=== PATIENT | female | born 1985 | race Caucasian/White ===

== ENCOUNTER 2017-10-02 05:04 | Emergency (ER) | payer MEDICAID, SELFPAY ==
[2017-10-02 05:06] VITALS: BP 112/70; PULSE 82; RESP 18; TEMP 37.1; O2SAT 98
--- NOTE | 2017-10-02 05:18 | ED.GENADUL_ITS ---
Disposition Clinical Impression: Left flank pain Disposition: HOME Condition: Good Instructions: Flank Pain (ED) Additional Instructions: Please take medications as directed. Please drink 8-10 cups of water per day. If you notice any worsening of your symptoms, or any new symptoms such as vomiting, diarrhea, fever, chills, shortness of breath, chest pain, numbness, weakness, or fainting , please return immediately to the emergency department for reevaluation. Please follow up with your primary care provider as soon as possible for reassessment and reevaluation. As always, it was a pleasure participating in your medical care today. Prescriptions: Acetaminophen [Tylenol Extra Strength] 1,000 mg PO Q6H 5 Days #60 tab Dicyclomine [Bentyl] 10 mg PO BID #10 cap Ibuprofen [Motrin Ib] 600 mg PO Q6H 5 Days #60 tablet Medical Decision Making - Medical Decision Making This is a 31-year-old female who presents for evaluation of left- sided flank and left lower quadrant abdominal pain. It occurred suddenly and woke her up out of sleep. She describes the pain as severe, stabbing and aching. Radiation between the left flank and left lower quadrant of her abdomen is present. She denies any urinary symptoms. Differential at this time includes urolithiasis, diverticulitis. Will evaluate for atypical cardiac etiology. We will control her pain, hydrate, and evaluate with CT imaging. 7:16 AM Patient's laboratory workup has returned benign. Urinalysis shows no signs of hematuria or infection for that matter. CT scan was read as negative with no acute process per virtual radiology. I did contact virtual radiology and spoke personally with Dr. Doe, reviewed the findings and she confirms that there is no evidence of urolithiasis, appendicitis, or acute colonic pathology. There is a phlebolith present, however this is present on prior imaging study. Patient's pain is notably improved after medications. With a negative workup, no abnormalities, improvement of her pain it feels that she can be safely discharged home with close follow-up with her primary care provider. At a long discussion regarding red flags which returned the patient understands. I have extensively reviewed the treatment plan and discharge instructions with the patient. I have addressed all patient concerns at this time. The patient was made aware of what symptoms to monitor for that would warrant a return to the emergency department. Discussed the plan with the patient, they demonstrate verbal understanding and agreement with our assessment and plan at this time. History of Present Illness - General Chief complaint: Abd Prob Stated complaint: FABIÁN Time Seen by Provider: 10/02/17 05:11 - History of Present Illness Initial comments: This is a 31-year-old female with no past medical history, and past surgical history of a tubal ligation to dc and left-sided knee surgery, who presents today for evaluation of sudden onset left lower flank pain. Patient states that the pain is severe in nature, sharp, and aching sensation. Pain is constant but comes and goes in severity. Pain is worsened with palpation of the back, flank, and abdomen, relieved by nothing. It woke her up out of sleep early this morning roughly 1 hour prior to arrival. She has never had pain like this before. Pain is located in her left flank towards the left abdomen. No genitourinary radiation. She denies any chest pain, shortness of breath, arm pain, neck pain, vomiting, diarrhea, hematuria, numbness tingling or weakness. Patient has never had symptoms like this in the past. She denies any history of kidney stones or family history of kidney stones. Aside for the tubal ligation to dc the patient denies any previous abdominal surgeries. Patient has no other complaints at this time. Patient denies any IV or illicit drug use. - Related Data Fluticasone Propionate [Flovent 110MCG] 110 mcg IH BID inhaler 12/21/13 Acetaminophen [Tylenol] 1,000 mg PO Q8H PRN PRN 08/20/15 Ibuprofen [Ibuprofen Ib] 600 mg PO PRN PRN 08/01/16 Fluticasone Propionate [Flonase] 2 sprays NS DAILY 14 Days #1 btl 08/28/17 Acetaminophen [Tylenol Extra Strength] 1,000 mg PO Q6H 5 Days #60 tab 10/02/17 Dicyclomine [Bentyl] 10 mg PO BID #10 cap 10/02/17 Ibuprofen [Motrin Ib] 600 mg PO Q6H 5 Days #60 tablet 10/02/17 Allergies Allergy/AdvReac Type Severity Reaction Status Date / Time Sulfa (Sulfonamide Allergy Severe Hives Unverified 10/02/17 05:10 Antibiotics) Review of Systems Other: 10 point review of systems was performed, pertinent positives and negatives are noted in the history of present illness. Past Medical History - Past Medical History Medical history: asthma, GERD Surgical history: bilateral tubal ligation, other (knee surgery) - Social History Alcohol use: occasionally Drug use: none General Exam - Other Other exam information: 1.Const: Well-nourished, Well-developed, appearing stated age 2.Eyes: PERRL, no conjunctival injection, and symmetrical lids. 3.ENT: Atraumatic external nose and ears. Moist MM. Neck: Symmetric, trachea midline, No thyromegaly. 4.CVS: +S1/S2, No murmurs or gallops. Peripheral pulses 2+ and equal in all extremities. Brisk capillary refill in all extremities. 5.RESP: Unlabored respiratory effort. Clear to auscultation bilaterally. No wheezes rales or rhonchi 6.GI: Abdominal exam demonstrates reproducible tenderness on percussion of the left flank, with CVA tenderness. Reproducible tenderness on palpation of the left lower quadrant and in the suprapubic region. No right lower quadrant and right upper quadrant pain. No guarding or rebound. 7.MSK: Normocephalic/Atraumatic, Extremities w/o deformity or ttp No cyanosis or clubbing, Normal movement of all extremities 8.Skin: Warm, Dry. No rashes or lesions. 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 Sensation grossly intact, no focal neurologic deficits. 10.Psych: (AAO) x3. Appropriate mood and affect Course Vital Signs - 24 hr 10/02/17 05:06 Temperature 37.1 C Pulse 82 Respiratory 18 Rate Blood Pressure 112/70 Pulse Oximetry 98
[2017-10-02] MEDS: MORPHine 10 MG/ML VIAL 4 MG IVP ×2 (05:32→07:32)
[2017-10-02] MEDS: Normal Saline 1,000 ML 1000 ML IV (05:32)
[2017-10-02] MEDS: Acetaminophen 500 MG TAB 1000 MG PO (05:33)
[2017-10-02] MEDS: Ketorolac 30 MG/ML VIAL IM (05:33)
[2017-10-02 05:35] LABS: Abs Immature Grans 0.01 k/cumm (0.0-0.09); Absolute Basophil Count 0.03 k/cumm (0.0-0.2); Absolute Eosinophil Count 0.59 k/cumm (0.0-0.7); Absolute Lymphocyte Count 3.99 k/cumm (1.2-3.4); Absolute Monocyte Count 0.62 k/cumm (0.11-0.7); Basophils % 0.3; Eosinophils % 5.4; HCT 44.8 % (36.0-46.0); HGB 14.7 g/dL (12.0-15.5); Immature Grans % 0.1; Lymphocytes % 36.7; Mean Corp. HGB Concentration 32.8 g/dL (32.0-36.0); Mean Corpuscular Hemoglobin 29.9 pg (27.0-33.0); Mean Corpuscular Volume 91.1 fL (80-95); Mean Platelet Volume 9.3 fL (8.0-11.0); Monocytes % 5.7; Neutrophils % 51.8; Platelet Count 326 x1000/uL (130-400); RBC 4.92 m/cumm (4.00-5.20); RBC Distribution Width 13.6 % (11.7-14.6); White Blood Cell Count 10.86 k/cumm (4.4-10.8)
[2017-10-02 05:43] LABS: Lipase 134 U/L (73-393)
[2017-10-02 05:49] LABS: Absolute Neutrophil Count 5.63 k/cumm (1.2-6.7)
[2017-10-02 05:51] LABS: ALT 26 U/L (12-78); AST 15 U/L (15-37); Albumin 3.7 g/dL (3.4-5.0); Alkaline Phosphatase 89 U/L (46-116); Anion Gap 8.4 mmol/L (3-11); BUN 14 mg/dL (7-18); Bilirubin, Total 0.1 mg/dL (0.2-1.0); CO2 27.6 mmol/L (21.0-32.0); CREATININE 0.79 mg/dL (0.55-1.02); Calcium 8.5 mg/dL (8.5-10.1); Chloride 103 mmol/L (98-107); Glucose 86 mg/dL (70-100); Potassium 3.9 mmol/L (3.5-5.1); Sodium 139 mmol/L (136-145); Total Protein 7.5 g/dL (6.4-8.2)
[2017-10-02 05:54] LABS: Troponin I < 0.02 ng/mL (0.00-0.06)
--- NOTE | 2017-10-02 05:55 | DI.RPTCT_ITS ---
SYMPTOM/DIAGNOSIS: SUDDEN ONSET LEFT LOWER FLANK PAIN, RULE OUT STONE ABDOMINAL AND PELVIC CT: 10/02 CT examination of the abdomen and pelvis was performed without contrast administration. Images obtained through the lung bases are unremarkable. Liver is unremarkable in appearance. Small calcified splenic focus noted which is nonspecific. Pancreas is unremarkable by CT criteria as area gallbladder and bile ducts. Abdominal aorta is of normal diameter. No significant abdominal wall hernia seen. No abdominal adenopathy seen. Adrenals and kidneys are normal in appearance. No urinary tract calcification or obstruction. Urinary bladder is essentially empty. Appendix is normal. No evidence of diverticulitis or bowel obstruction. 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 CONCLUSION: No evidence of acute intra-abdominal process. No evidence of urinary tract obstruction or calcification.
[2017-10-02 06:51] LABS: Bilirubin Negative (Negative); Blood Negative (Negative); Clarity Clear; Glucose Negative (Negative); Ketones Negative (Negative); Leukocyte Esterase Negative (Negative); Nitrite Negative (Negative); Specific Gravity 1.025 (1.005-1.025)
[2017-10-02 07:03] LABS: Bacteria Few HPF (Negative); C & S Indicated? C&S Done As Ordered; Casts Negative LPF (Negative); Crystals Few Amorphous HPF (Negative); Epithelial Cells Many HPF (Negative); Mucus Moderate (Negative); RBC Negative (0-2); WBC Negative HPF (0-5)
--- NOTE | 2017-10-02 07:03 | DI.VRAD_ITS ---
EXAM: CT Abdomen and Pelvis Without Intravenous Contrast EXAM DATE/TIME: Exam ordered 10/02/2017 5:16 AM CLINICAL HISTORY: 31 years old, female; Pain; Abdominal pain and other: L flank; Localized; Left lower quadrant (llq); Prior surgery; Surgery date: 6+ months; Surgery type: Tubal ligation; Patient HX: Woken up with severe pain in llq radiating into back TECHNIQUE: Axial computed tomography images of the abdomen and pelvis without intravenous contrast. All CT scans at this facility use at least one of these dose optimization techniques: automated exposure control; mA and/or kV adjustment per patient size (includes targeted exams where dose is matched to clinical indication); or iterative reconstruction. Coronal and sagittal reformatted images were created and reviewed. COMPARISON: CT - ABD PELVIS WITH CONTRAST 10/21/2015 1:44 PM FINDINGS: Lung bases: Unremarkable. No mass. No consolidation. ABDOMEN: Liver: Unremarkable. Gallbladder and bile ducts: Unremarkable. Pancreas: Unremarkable. Spleen: Unremarkable. Adrenals: Unremarkable. Kidneys and ureters: Unremarkable. No stones or hydronephrosis seen. There is a left pelvic phlebolith unchanged from the prior study. Stomach and bowel: Unremarkable. PELVIS: Appendix: Normal appendix. Bladder: Unremarkable. Reproductive: Unremarkable as visualized. ABDOMEN and PELVIS: Intraperitoneal space: No free air. No significant fluid collection. Bones/joints: No acute findings. Soft tissues: Unremarkable. Vasculature: Mild atherosclerotic disease in the pelvis. No aneurysm. Lymph nodes: No pathologic size nodes. IMPRESSION: No acute findings. Dictated and Authenticated by: Kristen Doe MD. Ordering:KEO ALMODOVAR MD
[2017-10-02 07:30] VITALS: BP 102/42; PULSE 73; RESP 17; TEMP 37; O2SAT 98
[2017-10-02] MEDS: Dicyclomine 10 MG CAP PO (07:31)
== END 2017-10-02 07:39 | disposition home or self-care (01) ==
PROVIDERS: Emergency Provider Student in an Organized Health Care Education/Training Program; PCP Family Medicine
DX: R10.32 Left lower quadrant pain (principal); R10.12 Left upper quadrant pain
CPT/HCPCS: 36415; 80053; 83690; 93005; 96361; 96372; 96374; 96376; 99285; 74176; 81003; 81015; 84484; 85025; 87086; 93010; J1885; J2270

== ENCOUNTER 2018-01-26 09:43 | Outpatient (REF) | payer MEDICAID, SELFPAY ==
[2018-01-26 12:26] LABS: ALT 17 U/L (12-78); AST 9 U/L (15-37); Albumin 3.8 g/dL (3.4-5.0); Alkaline Phosphatase 76 U/L (46-116); Anion Gap 8.9 mmol/L (3-11); BUN 13 mg/dL (7-18); Bilirubin, Total 0.3 mg/dL (0.2-1.0); CO2 28.1 mmol/L (21.0-32.0); CREATININE 0.71 mg/dL (0.55-1.02); Calcium 8.8 mg/dL (8.5-10.1); Chloride 104 mmol/L (98-107); Cholesterol 188 mg/dL (50-200); Glucose 94 mg/dL (70-100); HDL Cholesterol 34 mg/dL (40-60); LDL CHOLESTEROL 126 mg/dL (<100); Sodium 141 mmol/L (136-145); Total Protein 6.8 g/dL (6.4-8.2); Triglyceride 177 mg/dL (30-150)
== END 2018-01-26 10:03 ==
LOC: NCHCN 09:43
PROVIDERS: PCP Family Medicine; Visit Provider Nurse Practitioner Family
DX: Z00.00 Encounter for general adult medical examination without abnormal findings (principal); Z13.228 Encounter for screening for other metabolic disorders; Z13.220 Encounter for screening for lipoid disorders
CPT/HCPCS: 80053; 80061; 83721

== ENCOUNTER 2020-02-22 15:34 | Emergency (ER) | payer MEDICAID, SELFPAY ==
--- NOTE | 2020-02-22 | DI.CT_ITS ---
EXAM: CT RENAL COLIC WO CLINICAL HISTORY: Rt flank pain. TECHNIQUE: Imaging Protocol: Axial computed tomography images with coronal and sagittal reformatted images were created and reviewed CONTRAST MATERIAL: Intravenous: none Oral: None COMPARISON: CT ABD PELVIS WO CONTRAST from 10/02/2017 FINDINGS: VISUALIZED LUNG BASES: No nodules nor pleural effusions evident. ABDOMEN: There is no ascites. LIVER: There are no obvious focal hepatic lesions evident of this noninfused study. GALLBLADDER/BILIARY: No obvious gallbladder pathology. CBD is not dilated. PANCREAS: No evidence of pancreatic mass nor dilatation of the pancreatic duct. SPLEEN: Spleen is not enlarged. No obvious intrasplenic lesions. ADRENALS: There are no significant adrenal masses. KIDNEYS:No cysts evident. No solid renal masses. No calculi nor hydronephrosis. . ABDOMINAL AORTA: Abdominal aorta is not enlarged and there is no [id number] adenopat hy. ABDOMINAL WALL/GI: No evidence of significant anterior abdominal wall hernia. No bowel obstruction. PELVIS: LYMPH NODES: There is no intrapelvic nor inguinal adenopathy. GI: No evidence of appendicitis.No evidence of sigmoid diverticulitis. URINARY BLADDER: No calculi nor obvious masses evident REPRODUCTIVE: Uterus and adnexal regions appear age-appropriate. There is no free fluid in the cul-d e-sac. OSSEOUS: No significant osseous lesions. IMPRESSION: 1. No evidence of nephrolithiasis and no calculi within the nondilated ureters nor within the urinary bladder.. No hydronephrosis nor perinephric streaking. 2. No significant acute findings in the abdomen pelvis on this noninfused study. 3. No osseous lesions evident. RADIATION DOSE DELIVERED: 1,324.31mGy.cm Total DLP DATA REPOSITORY: All CT scans at this facility are submitted to the National Radiology Data Registry (NRDR) Dose Index Registry (DIR) with the [employer] (ACR). RADIATION OPTIMIZATION: All CT scans at this facility use at least one of these dose optimization te chniques: automated exposure control; mA and/or kV adjustment per patient size (includes targeted exa ms where dose is matched to clinical indication); or iterative reconstruction.
[2020-02-22 15:37] VITALS: BP 161/103; PULSE 109; RESP 16; TEMP 36.7; O2SAT 99
[2020-02-22 15:51] LABS: Bilirubin Negative (Negative); Blood Trace-intact (Negative); Clarity Clear (Clear); Glucose Negative (Negative); Ketones Negative (Negative); Leukocyte Esterase Negative (Negative); Nitrite Negative (Negative); Specific Gravity 1.025 (1.005-1.025); Urobilinogen 0.2 EU/dL (Up TO 0.2); pH 7.5 (5-8)
--- NOTE | 2020-02-22 16:00 | RT.EKG_ITS ---
APPROVED REPORT Exam: Resting ECG Patient Location: E HR:93 bpm ECG Measurements Heart Rate 93 AXIS [place] 164 P 57 QRSd 79 QRS 37 QT 340 T 29 QTc 424 Conclusion Sinus rhythm...normal P axis, V-rate 60- 99
[2020-02-22 16:07] LABS: Bacteria Few HPF (Negative); C & S Indicated? No; Casts Negative LPF (Negative); Crystals Negative HPF (Negative); Epithelial Cells Many HPF (Negative); Mucus Negative (Negative); RBC 0-2 HPF (0-2); WBC 0-2 HPF (0-5)
--- NOTE | 2020-02-22 16:13 | ED.GENADUL_ITS ---
Discharge Plan Disposition Patient Disposition: HOME Condition: Stable Discharge Details Clinical Impression: Acute right flank pain Primary Care Provider: Abdoulaye Pratt ED Provider: Riana Ferrari Home Meds and New Rx's Prescriptions: Continued Flovent HFA 12 GM HFA aerosol inhaler 110 mcg Inhalation BID RF: 0 acetaminophen [Mapap Extra Strength] 500 MG tablet 1,000 mg PO Q8H PRN PRNRF: 0 ibuprofen [Ibuprofen IB] 200 MG tablet 600 mg PO PRN PRNRF: 0 acetaminophen [Mapap Extra Strength] 500 MG tablet 1,000 mg PO Q6H 5 Days Qty: 60 RF: 0 Discharge Instructions Instructions: Flank Pain (ED) Additional Instructions: Please return to the emergency department with any new or worsening pain, development of fever, inability to maintain appropriate oral intake. Pain continues but has no significant worsening but has not completely resolved please follow-up with primary care provider in the next week. I recommend taking 600 mg of ibuprofen in combination with 1 g of Tylenol every 6 hours as needed for pain. Do not exceed this dose as this is your maximum dose in 24 hours. Referrals: Abdoulaye Pratt [Primary Care Provider] - Medical Decision Making Tiera is a 34-year-old female who presents with right flank pain that began yesterday morning and has been worsening throughout today. She reports pain with movement or deep breathing. She has never had anything like this before. She initially treated it with 800 mg of ibuprofen yesterday and seemed to think it help a little but has had no medications today. Has also been treating with heat which she questions giving relieving factors. She has had no pain or swelling in her legs. No recent surgeries. No history of blood clots but does endorse family history of blood clots. Denies prior abdominal surgeries other than tubal ligation. She had no history of UTI, pyelonephritis, or kidney stones. She has been able to eat and drink without difficulty no nausea no pain after then. LMP was roughly 1 month ago. Differential diagnosis includes but not limited to UTI, pyelonephritis, renal colic, also considered biliary involvement although she is without pain in her right upper quadrant anteriorly less likely the case. Also considered possibility of reflux, ACS, PE. Patient did present mildly tachycardic but does appear slightly uncomfortable. She has no pain or swelling in her legs, recent surgeries nor does she endorse other risk factors to suggest PE. I have considered this but think it to be less likely the case. IV will be established and patient was given 1 L of LR as well as 15 mg of Toradol. She declines need for nausea medications at this time. Will obtain CBC, CMP, urinalysis, hCG, EKG as well as CT renal. CBC is unremarkable as is her CMP. Urinalysis shows trace hematuria although on the microscopy is within appropriate range. hCG is negative. EKG is interpreted by my attending with no significant findings. This is also reviewed by myself. I have reevaluated the patient she states she had some improvement of her pain after receiving Toradol. Vital signs are in an appropriate range. At this time we are waiting CT report. Patient declines need for additional pain or nausea medications. CT returns without any acute abnormalities. This is reviewed with the patient. Prior to this report coming in she had actually notified nursing staff that she felt much improved and would like to go home. After I reviewed her results with her she continues to feel improved. I discussed with her that I am unsure what the exact cause of her pain is today. I recommend that she monitor her closely. If she develops any significant new worsening concerning symptoms such as development of fever, worsening pain, inability to maintain appropriate oral intake she will return here for reevaluation. She will also monitor closely for visible hematuria, chest pain or shortness of breath. If symptoms completely resolve she will require no further work-up. If symptoms continue without significant worsening or any concerning symptoms she will follow-up with her primary care provider in 1 week. All of the patient's questions were answered and she felt comfortable with the c are plan discussed. HPI 34-year-old female presents with right flank pain that began yesterday a.m. No previous history of such. Worsening today thus she presents for evaluation. General Mode of arrival: ambulatory . Date/Time Provider Initiated Documentation: 02/22/20 15:35 . Limitations to Documentation: no limitations . Information obtained by: patient . Related Data Home Medications Medication Instructions Recorded Confirmed Flovent HFA 110 mcg INHALATION BID inhaler 12/21/13 02/22/20 acetaminophen [Mapap Extra 1,000 mg PO Q8H PRN PRN 08/20/15 02/22/20 Strength] ibuprofen [Ibuprofen IB] 600 mg PO PRN PRN 08/01/16 02/22/20 acetaminophen [Mapap Extra 1,000 mg PO Q6H 5 Days #60 tab 10/02/17 02/22/20 Strength] Previous Rx's Medication Instructions Recorded acetaminophen [Mapap Extra 1,000 mg PO Q6H 5 Days #60 tab 10/02/17 Strength] Allergies Allergy/AdvReac Type Severity Reaction Status Date / Time Sulfa (Sulfonamide Allergy Severe Hives Unverified 02/22/20 15:42 Antibiotics) General Stated Complaint: Abd Prob YUN: 3 Review of Systems All systems reviewed & are unremarkable except as noted in HPI and below PFSH Social History Smoking/Tobacco Use Status: Current every day Tobacco Type: cigarettes Smoking risk assessment performed?: Yes Alcohol Intake: current Alcohol Intake frequency: holidays/special occasions only Drug use: Never Substance use type: does not use Do you feel safe at home: Yes Do you feel safe in your relationship?: Yes Female Reproductive History Menstrual control method: permanent sterilization Exam Narrative Exam Narrative: CONSTITUTIONAL: Afebrile,well appearing but slightly uncomfortable 34-year-old female, sitting/lying in stretcher, in no acute distress. SKIN: [place], warm and moist. No diaphoresis, pallor, cyanosis, icterus or edema. No lesions, hives, petechiae or ecchymoses. EYES: Pupils equal and round. EOMI voluntarily. Conjunctivae clear w/o erythema or injection. Sclera white. HENT: Head normocephalic, atraumatic. NECK: Trachea midline. Neck supple with full range of motion. No nuchal rigidity. RESPIRATORY: CTAB. No wheezes, rhonchi or rales. Breathing non-labored. CARDIOVASCULAR: Minimally tachycardic upon initial vitals, without murmur, rubs or gallops. S1/ S2 present. GI: BSP. Abdomen soft, nondistended, slight tenderness in the right flank which radiates into the right upper quadrant without positive Worley's. Pain radiates slightly into the right lower quadrant but does not show significant tenderness over McBurney's point. There is minimal to no tenderness over the suprapubic region. Otherwise palpation throughout the rest of the abdomen is without pain.. No palpable masses or HSM. No rebound, guarding or rigidity. : Right CVA tenderness, no left CVA tenderness. MUSCULOSKELETAL: Extremities appear atraumatic with no obvious deformities, cyanosis, clubbing, or edema and with FROM. NEURO: Cranial nerves II-XII grossly intact. No significant motor or sensory deficits appreciated in the upper or lower extremities. No obvious ataxia PSYCH: Appropriate mood and affect. Course Vital Signs Vital signs: Vital Signs Temperature 98.1 F 02/22/20 15:37 Pulse 109 H 02/22/20 15:37 Respiratory Rate 16 02/22/20 15:37 Blood Pressure 161/103 H 02/22/20 15:37 Pulse Oximetry 99 02/22/20 15:37 Temperature 98.1 F 02/22/20 15:37 Temperature Source Skin 02/22/20 15:37 Pulse 109 H 02/22/20 15:37 Respiratory Rate 16 02/22/20 15:37 Respiratory Effort Non-Labored 02/22/20 15:41 Blood Pressure 161/103 H 02/22/20 15:37 Blood Pressure Position Sitting 02/22/20 15:37 Pulse Oximetry 99 02/22/20 15:37 Oxygen Delivery Method Room Air 02/22/20 15:37 Oxygen Flow Rate 0 02/22/20 15:37 Pain Level 8 02/22/20 15:41 Lab/Test Results Lab/Test Results: Laboratory Tests Range/Units 02/22/20 15:44 Urine Color (Yellow) Yellow Urine Clarity (Clear) Clear Urine pH (5-8) 7.5 Ur Specific [place] (1.005-1.025) 1.025 Urine Protein (Negative) mg/dL Negative Urine Ketones (Negative) mg/dL Negative Urine Blood (Negative) Trace-intact H Urine Nitrite (Negative) Negative Urine Bilirubin (Negative) Negative Urine Urobilinogen (Up TO 0.2) EU/dL 0.2 Ur Leukocyte Esterase (Negative) Negative Urine RBC (0-2) HPF 0-2 Urine WBC (0-5) HPF 0-2 Ur Epithelial Cells (Negative) HPF Many Urine Crystals (Negative) HPF Negative Urine Bacteria (Negative) HPF Few Urine Casts (Negative) LPF Negative Urine Mucus (Negative) Negative Ur Culture Indicated? No Urine Glucose (Negative) mg/dL Negative POC- Test(urine) Negative
[2020-02-22] MEDS: Ketorolac 30 MG/ML VIAL 15 MG IV (16:31)
[2020-02-22] MEDS: Lactated Ringers 1,000 ML 1000 ML IV (16:32)
[2020-02-22 16:43] LABS: Abs Immature Grans 0.03 10^3/uL (0.0-0.06); Absolute Basophil Count 0.01 10^3/uL (0.0-0.2); Absolute Eosinophil Count 0.13 10^3/uL (0.0-0.7); Absolute Lymphocyte Count 2.12 10^3/uL (1.2-3.4); Absolute Neutrophil Count 6.53 10^3/uL (1.2-6.7); Basophils % 0.1; Eosinophils % 1.4; HCT 38.1 % (36.0-46.0); Immature Grans % 0.3; Lymphocytes % 22.3; MCH 31.1 pg (27.0-33.0); MCHC 34.1 % (32.0-36.0); MCV 91.1 fL (80-95); MPV 9.6 fL (8.0-11.0); Monocytes % 7.4; Neutrophils % 68.5; Nucleated RBC 0 %; Platelet Count 232 10^3/uL (130-400); RBC 4.18 10^6/uL (3.93-5.22); RDW 12.6 % (11.7-14.6); RDW-SD 41.4 fL; WBC 9.52 10^3/uL (4.4-10.8)
[2020-02-22 16:53] LABS: ALT 39 U/L (14-59); AST 21 U/L (15-37); Albumin 3.6 g/dL (3.4-5.0); Alkaline Phosphatase 100 U/L (46-116); BUN 12 mg/dL (7-18); Bilirubin, Total 0.2 mg/dL (0.2-1.0); CREATININE 0.67 mg/dL (0.55-1.02); Calcium 8.6 mg/dL (8.5-10.1); Chloride 102 mmol/L (98-107); Glucose 94 mg/dL (74-106); Potassium 3.7 mmol/L (3.5-5.1); Sodium 138 mmol/L (136-145); Total Protein 7.2 g/dL (6.4-8.2)
[2020-02-22 18:17] VITALS: BP 143/86
--- NOTE | 2020-02-22 18:31 | DI.VRAD_ITS ---
PROCEDURE INFORMATION: Exam: CT Abdomen And Pelvis Without Contrast Exam date and time: 02/22/2020 16:10 Age: 34 years old Clinical indication: Other: RT flank pain; Patient HX: Rlq pain TECHNIQUE: Imaging protocol: Computed tomography of the abdomen and pelvis without contrast. COMPARISON: CT ABD PELVIS WO CONTRAST 10/02/2017 05:42 FINDINGS: Lungs: Minimal dependent subsegmental atelectasis. Liver: No hepatic masses on noncontrast imaging. Gallbladder and bile ducts: No calcified stones. No ductal dilation. Pancreas: No ductal dilation. No masses. Spleen: No splenomegaly or focal lesions. Adrenal glands: Normal. No mass. Kidneys and ureters: No nephrolithiasis or collecting system obstruction. Stomach and bowel: No obstruction. No mucosal thickening. Appendix: Normal morphology of the appendix. Intraperitoneal space: No free air. No significant fluid collection. Vasculature: No abdominal aortic aneurysm. Lymph nodes: No significantly enlarged lymph nodes. Urinary bladder: Unremarkable as visualized. Reproductive: Unremarkable as visualized. Bones/joints: No acute fracture. Soft tissues: Tiny fat-containing umbilical hernia. IMPRESSION: 1. No acute findings. 2. No appendicitis. No nephrolithiasis or hydronephrosis. Dictated and Authenticated by: Maureen Choudhary MD. Ordering:VICKIE Mayers MD
[2020-02-22 18:41] VITALS: BP 126/87; PULSE 80; RESP 16; TEMP 36.7; O2SAT 98
== END 2020-02-22 18:49 | disposition home or self-care (01) ==
PROVIDERS: Emergency Provider Physician Assistant Medical; PCP Family Medicine
DX: R10.31 Right lower quadrant pain (principal)
CPT/HCPCS: 36415; 80053; 81025; 93005; 96361; 96374; 99285; 74176; 81003; 81015; 85025; 93010; 99284; J1885

== ENCOUNTER 2020-06-30 05:51 | Emergency (ER) | payer MEDICAID, SELFPAY ==
[2020-06-30 05:52] VITALS: BP 147/87; PULSE 97; RESP 20; TEMP 36.5; O2SAT 99
--- NOTE | 2020-06-30 05:57 | W.ED.GENAD ---
Discharge Plan Disposition Patient Disposition: HOME Condition: Good Discharge Details Clinical Impression: Stimulant intoxication, Use of nonprescription opiate drugs Primary Care Provider: Abdoulaye Pratt ED Provider: Lux Frausto Home Meds and New Rx's Prescriptions: Continued Flovent HFA 12 GM HFA aerosol inhaler 110 mcg Inhalation BID RF: 0 ibuprofen [Ibuprofen IB] 200 MG tablet 600 mg PO PRN PRNRF: 0 acetaminophen [Mapap Extra Strength] 500 MG tablet 1,000 mg PO Q6H 5 Days Qty: 60 RF: 0 Discontinued acetaminophen [Mapap Extra Strength] 500 MG tablet 1,000 mg PO Q8H PRN PRNRF: 0 Discharge Instructions Additional Instructions: Avoid street drugs, they are very dangerous. Return to ED if chest pain, shortness of breath, mental status changes. Referrals: Abdoulaye Pratt [Primary Care Provider] - Medical Decision Making Unfortunately, no way to really know what substance she truly ingested as even fentanyl out on the streets can be contaminated with other drugs. I suspect a stimulant such as cocaine or methamphetamine has been used as an adulterant. She is mildly tachycardic and hypertensive but is clearly very anxious. We will send a urine drug screen to see if anything turns up. Will do urine test though patient denies and states she has had her tubes tied. Will treat with oral Ativan and reevaluate. 7:30 - Patient feeling better after the Ativan. Drug screen positive for opiates and amphetamines so symptoms consistent with stimulant ingestion. Discussed with patient. Discussed dangers of street drugs. Ok for discharge home for rest today. Lab Data Lab results reviewed: Yes I reviewed the patient's lab results. HPI General Mode of arrival: ambulatory. Date/Time Provider Initiated Documentation: 06/30/20 05:54. Limitations to Documentation: no limitations. Information obtained by: patient and RN notes reviewed. HPI Narrative: Patient presenting to ED with complaints of anxiety, feeling hot and flushed all over since using what she was told was fentanyl and some film she put in her mouth that her friend had given her. Patient states she does not typically use drugs ever. She has been having trouble with her knee which she has had surgery on before. Decided to try the fentanyl for pain tonight. Patient did get the substance from a friend. However, in reality neither truly knows what they were using. Patient denies having headache, chest pain, shortness of breath, vomiting, neurologic change. She has had some diarrhea. Her biggest issue is just feeling extremely anxious and a burning sensation all over. Related Data Home Medications Medication Instructions Recorded Confirmed Flovent HFA 110 mcg INHALATION BID inhaler 12/21/13 02/22/20 ibuprofen [Ibuprofen IB] 600 mg PO PRN PRN 08/01/16 02/22/20 acetaminophen [Mapap Extra 1,000 mg PO Q6H 5 Days #60 tab 10/02/17 02/22/20 Strength] Previous Rx's Medication Instructions Recorded acetaminophen [Mapap Extra 1,000 mg PO Q6H 5 Days #60 tab 10/02/17 Strength] Allergies Allergy/AdvReac Type Severity Reaction Status Date / Time Sulfa (Sulfonamide Allergy Severe Hives Unverified 02/22/20 15:42 Antibiotics) General YUN: 3 Review of Systems Narrative: As documented in HPI otherwise negative as below. Const: no fever, chills, weakness Resp: no cough, SOB, pleuritic pain CV: no CP, diaphoresis, edema, syncope GI: no abdominal pain, nausea, vomiting Neuro: no headache, numbness, focal weakness, confusion [facility] Medical History Anxiety Asthma Depression GERD (gastroesophageal reflux disease) Surgical History S/P arthroscopic knee surgery S/P tubal ligation Social History Smoking/Tobacco Use Status: Current every day Tobacco Type: cigarettes Smoking risk assessment performed?: Yes Alcohol Intake: current Alcohol Intake frequency: a few times a week Drug use: Never Substance use type: opiates Do you feel safe at home: Yes Do you feel safe in your relationship?: Yes Female Reproductive History Menstrual control method: permanent sterilization Exam Narrative Exam Narrative: Const: Obese female in NAD but clearly anxious. HEENT: NC/AT. Normal facial exam. Eyes: PERRL and EOMI Neck: Supple. Trachea midline. Lungs: Normal respiratory effort. Lungs are clear. Cor: RRR without murmur/gallop. Good radial pulses. Neuro: A+O x 3. Normal speech, mentation, gait. Cranial nerves II - XII grossly intact. No gross motor or sensory deficit. Ext: No C/C/E. Skin: Warm and dry without rash.
[2020-06-30 06:01] VITALS: RESP 20
[2020-06-30] MEDS: LORazepam 1 MG TAB PO (06:24)
[2020-06-30 07:28] LABS: *AMPHETAMINES SCREEN URINE Positive (Negative); *BARBITURATES SCREEN URINE Negative (Negative); *BENZODIAZEPINES SCREEN URINE Negative (Negative); Cannabinoids THC Negative (Negative); Cocaine Screen,Urine Negative (Negative); METHADONE URINE SCREEN Negative (Negative); OPIATES URINE SCREEN Positive (Negative)
[2020-06-30 07:33] LABS: Tricyclic Antidepressants Negative (Negative)
[2020-06-30 07:48] VITALS: BP 144/70; PULSE 85; RESP 18; O2SAT 98
== END 2020-06-30 07:48 | disposition home or self-care (01) ==
PROVIDERS: Emergency Provider Emergency Medicine; PCP Family Medicine
DX: F15.920 Other stimulant use, unspecified with intoxication, uncomplicated (principal)
CPT/HCPCS: 80307; 81025; 99283

== ENCOUNTER 2020-07-28 11:46 | Emergency (ER) | payer MEDICAID, SELFPAY ==
[2020-07-28 11:50] VITALS: BP 144/75; PULSE 78; RESP 18; TEMP 36.4; O2SAT 97
[2020-07-28 11:58] VITALS: RESP 18
--- NOTE | 2020-07-28 12:00 | RT.EKG_ITS ---
APPROVED REPORT Exam: Resting ECG Reason for Exam: Chest pressure Patient Location: E HR:80 bpm ECG Measurements Heart Rate 80 AXIS ME 160 P 33 QRSd 77 QRS 30 QT 381 T 31 QTc 439 Conclusion Sinus rhythm...normal P axis, V-rate 60- 99
--- NOTE | 2020-07-28 12:15 | DI.RAD_ITS ---
Exam(s) XR CHEST 2V PA LATERAL EXAM: XR CHEST 2V PA LATERAL CLINICAL HISTORY: chest pain TECHNIQUE: 2D digital imaging was performed. COMPARISON: No exams were available for comparison FINDINGS: MEDIASTINUM: Normal. HEART: Normal. PULMONARY VASCULATURE: Normal. LUNGS: Clear. PLEURAL SPACE: No pleural effusion or pneumothorax. BONE:Within normal limits for the patient's age. OTHER FINDINGS:Normal. IMPRESSION: No acute pulmonary findings. DATA REPOSITORY: RADIATION DOSE DELIVERED:
[2020-07-28] MEDS: LORazepam 1 MG TAB PO (12:36)
[2020-07-28 13:05] LABS: Abs Immature Grans 0.02 10^3/uL (0.0-0.06); Absolute Basophil Count 0.02 10^3/uL (0.0-0.2); Absolute Eosinophil Count 0.38 10^3/uL (0.0-0.7); Absolute Lymphocyte Count 1.38 10^3/uL (1.2-3.4); Absolute Monocyte Count 0.47 10^3/uL (0.1-0.8); Absolute Neutrophil Count 4.63 10^3/uL (1.2-6.7); Basophils % 0.3; Eosinophils % 5.5; HCT 37.8 % (36.0-46.0); HGB 12.1 g/dL (11.2-15.7); Immature Grans % 0.3; MCH 30.6 pg (27.0-33.0); MCV 95.5 fL (80-95); Monocytes % 6.8; Neutrophils % 67.1; Nucleated RBC 0 %; Platelet Count 235 10^3/uL (130-400); RBC 3.96 10^6/uL (3.93-5.22); RDW 12.8 % (11.7-14.6); RDW-SD 44.6 fL
[2020-07-28 13:22] LABS: ALT 60 U/L (14-59); AST 23 U/L (15-37); Albumin 3.4 g/dL (3.4-5.0); Alkaline Phosphatase 96 U/L (46-116); Anion Gap 9.4 mmol/L (3-11); BUN 18 mg/dL (7-18); Bilirubin, Total 0.2 mg/dL (0.2-1.0); CO2 26.6 mmol/L (21.0-32.0); CREATININE 0.8 mg/dL (0.55-1.02); Calcium 8.5 mg/dL (8.5-10.1); Chloride 106 mmol/L (98-107); Glucose 120 mg/dL (74-106); Potassium 3.9 mmol/L (3.5-5.1); Sodium 142 mmol/L (136-145)
[2020-07-28 13:25] LABS: Troponin I < 0.05 ng/mL (<0.06)
--- NOTE | 2020-07-28 13:48 | ED.GENADUL_ITS ---
Discharge Plan Disposition Patient Disposition: HOME Condition: Stable Discharge Details Clinical Impression: Acute dyspnea Primary Care Provider: Abdoulaye Pratt ED Provider: Laura Fink Home Meds and New Rx's Prescriptions: No Action Flovent HFA 12 GM HFA aerosol inhaler 110 mcg Inhalation BID RF: 0 ibuprofen [Ibuprofen IB] 200 MG tablet 600 mg PO PRN PRNRF: 0 acetaminophen [Mapap Extra Strength] 500 MG tablet 1,000 mg PO Q6H 5 Days Qty: 60 RF: 0 Discharge Instructions Instructions: Dyspnea (ED) Additional Instructions: Please follow-up with your primary care physician next week for reevaluation Please return earlier should you have new or worsening complaints I have placed a message for care management to schedule an appointment with your primary care physician in the next several days Discharge Data Discharge Date/Time-TO BE ENTERED AT DEPARTURE: 07/28/20 14:10 Medical Decision Making pt denies chest pain, reports palpitations feels symptomatically improved after ativan neg troponin and EKG, diagnostic labs reassuring heart score of 1 secondary to BMI care management f/u with pcp for anxiety no SI/HI return precautions discussed and pt expressed understanding PT PERC negative for PE Differential Diagnosis Differential Diagnosis: anxiety, angina, dysrhythmia, PE Medical Records Medical records reviewed: Yes I reviewed the patient's medical records. Lab Data Lab results reviewed: Yes I reviewed the patient's lab results. HPI General Mode of arrival: ambulatory . Date/Time Provider Initiated Documentation: 07/28/20 12:13 . Limitations to Documentation: no limitations . Information obtained by: patient . HPI Narrative: This 34-year-old female presents with report of chest pressure and symptoms of anxiety. She states he began to feel very anxious and felt pressure in her chest. She states she has a history of anxiety and felt similarly. She has not used IV drugs or cocaine for greater than 10 years. She denies chance of . She denies exogenous h ormones. She denies any current shortness of breath and is otherwise feeling improved. Her symptoms started several hours ago. She states she had a similar episode several years ago which resolved on its own. Related Data Home Medications Medication Instructions Recorded Confirmed Flovent HFA 110 mcg INHALATION BID inhaler 12/21/13 07/28/20 ibuprofen [Ibuprofen IB] 600 mg PO PRN PRN 08/01/16 07/28/20 acetaminophen [Mapap Extra 1,000 mg PO Q6H 5 Days #60 tab 10/02/17 07/28/20 Strength] Previous Rx's Medication Instructions Recorded acetaminophen [Mapap Extra 1,000 mg PO Q6H 5 Days #60 tab 10/02/17 Strength] Allergies Allergy/AdvReac Type Severity Reaction Status Date / Time Sulfa (Sulfonamide Allergy Severe Hives Unverified 07/28/20 11:55 Antibiotics) General Stated Complaint: Anxiety YUN: 3 Review of Systems Narrative: Review of systems obtained x7 aside from where indicated in HPI [facility] Medical History Anxiety Asthma Depression GERD (gastroesophageal reflux disease) Surgical History S/P arthroscopic knee surgery S/P tubal ligation Social History Smoking/Tobacco Use Status: Current every day Tobacco Type: cigarettes Smoking risk assessment performed?: Yes Alcohol Intake: current Alcohol Intake frequency: a few times a week Drug use: Never Substance use type: does not use Do you feel safe at home: Yes Do you feel safe in your relationship?: Yes Female Reproductive History Menstrual control method: permanent sterilization Exam Const General: cooperative and no acute distress Orientation: alert and oriented x3 Eyes Pupils: PERRL Chest Chest: normal inspection of the chest Resp Effort & Inspection: normal respiratory effort Auscultation: clear to auscultation bilaterally Cardio Rate: regular rate Rhythm: regular rhythm GI Inspection: normal to inspection Skin General skin exam: no rashes or lesions noted Neuro General: patient alert and patient oriented x3 Extrem Other: no calf tenderness or swelling, n/v intact Course Vital Signs Vital signs: Vital Signs Temperature 36.4 C L 07/28/20 11:50 Pulse 78 07/28/20 11:50 Respiratory Rate 18 07/28/20 11:50 Blood Pressure 144/75 H 07/28/20 11:50 Pulse Oximetry 97 07/28/20 11:50 Temperature 36.4 C L 07/28/20 11:50 Temperature Source Temporal Artery Scan 07/28/20 11:50 Pulse 78 07/28/20 11:50 Respiratory Rate 18 07/28/20 11:58 Respiratory Effort Non-Labored 07/28/20 11:58 Respiratory Depth Normal 07/28/20 11:58 Respiratory Pattern Normal 07/28/20 11:58 Blood Pressure 144/75 H 07/28/20 11:50 Blood Pressure Position Sitting 07/28/20 11:50 Pulse Oximetry 97 07/28/20 11:50 Oxygen Delivery Method Room Air 07/28/20 11:50 Oxygen Flow Rate 0 07/28/20 11:50 Pain Level 9 07/28/20 11:50 Lab/Test Results Lab/Test Results: Laboratory Tests Range/Units 07/28/20 07/28/20 12:54 12:54 WBC (4.4-10.8) 10^3/uL 6.90 RBC (3.93-5.22) 10^6/uL 3.96 Hgb (11.2-15.7) g/dL 12.1 Hct (36.0-46.0) % 37.8 MCV (80-95) fL 95.5 H MCH (27.0-33.0) pg 30.6 MCHC (32.0-36.0) % 32.0 RDW (11.7-14.6) % 12.8 Plt Count (130-400) 10^3/uL 235 MPV (8.0-11.0) fL 9.0 Immature Gran % 0.3 Neutrophils % 67.1 Lymphocytes % 20.0 Monocytes % 6.8 Eosinophils % 5.5 Basophils % 0.3 Nucleated RBC % % 0 Absolute Neutrophils (1.2-6.7) 10^3/uL 4.63 Absolute Lymphocytes (1.2-3.4) 10^3/uL 1.38 Absolute Monocytes (0.1-0.8) 10^3/uL 0.47 Absolute Eosinophils (0.0-0.7) 10^3/uL 0.38 Absolute Basophils (0.0-0.2) 10^3/uL 0.02 Sodium (136-145) mmol/L 142 Potassium (3.5-5.1) mmol/L 3.9 Chloride (98-107) mmol/L 106 Carbon Dioxide (21.0-32.0) mmol/L 26.6 Anion Gap (3-11) mmol/L 9.4 BUN (7-18) mg/dL 18 Creatinine (0.55-1.02) mg/dL 0.8 Estimated GFR/1.73 m2 (mL/min/1.73m2) >= 60.00 Glucose (74-106) mg/dL 120 H Calcium (8.5-10.1) mg/dL 8.5 Magnesium (1.8-2.4) mg/dL 2.0 Total Bilirubin (0.2-1.0) mg/dL 0.2 AST (15-37) U/L 23 ALT (14-59) U/L 60 H Alkaline Phosphatase (46-116) U/L 96 Troponin I (<0.06) ng/mL < 0.05 Total Protein (6.4-8.2) g/dL 7.0 Albumin (3.4-5.0) g/dL 3.4 POC- Test(urine) Negative
[2020-07-28 14:02] VITALS: BP 140/89; PULSE 78; RESP 18; TEMP 36.8; O2SAT 97
--- NOTE | 2020-07-28 22:01 | NUR.NOTE ---
REFERAL SENT TO CM TO FOLLOW UP PCP 07/28/20Nursing Note:
== END 2020-07-28 14:10 | disposition home or self-care (01) ==
PROVIDERS: Emergency Provider Physician Assistant; PCP Family Medicine
DX: R06.09 Other forms of dyspnea (principal)
CPT/HCPCS: 36415; 80053; 81025; 93005; 99284; 71046; 83735; 84484; 85025; 93010; 99283

== ENCOUNTER 2020-08-10 13:09 | Emergency (ER) | payer MEDICAID, SELFPAY ==
--- NOTE | 2020-08-10 13:11 | W.ED.GENAD ---
Discharge Plan Disposition Patient Disposition: HOME Condition: Improving Discharge Details Clinical Impression: Opiate withdrawal Primary Care Provider: Abdoulaye Pratt ED Provider: Nikia Suarez Home Meds and New Rx's Prescriptions: Continued Flovent HFA 12 GM HFA aerosol inhaler 110 mcg Inhalation BID RF: 0 ibuprofen [Ibuprofen IB] 200 MG tablet 600 mg PO PRN PRNRF: 0 acetaminophen [Mapap Extra Strength] 500 MG tablet 1,000 mg PO Q6H 5 Days Qty: 60 RF: 0 Discontinued buprenorphine-naloxone [Suboxone] 8-2 mg Film 1 film BUCCAL DAILY RF: 0 Discharge Instructions Instructions: Opioid Withdrawal (ED) Additional Instructions: You can keep the clonidine patch in place for a total of 1 week and then remove. Take 1 tab of Ativan as needed and directed for additional symptoms of withdrawal. Drink plenty of fluids and get plenty of rest. Call the [facility] in [facility] at [phone] tomorrow to discuss with them if you are interested in starting suboxone treatment for opiate withdrawal. Return immediately to the emergency department if you develop any worsening or new concerning symptoms. Discharge Data Discharge Date/Time-TO BE ENTERED AT DEPARTURE: 08/10/20 17:40 Discharge Physician: Nikia Suarez Medical Decision Making 1330 --34yo F using heroin daily for the past few weeks presents to the ED w/ a feeling of restlessness and bodyaches w/ concern for possible withdrawal symptoms after taking Suboxone at 11 AM this morning. Patient appears restless and uncomfortable. She is afebrie and appears nontoxic. No meningeal signs. EKG notes a rate of 90, sinus, no STEMI. History and presentation does not appear consistent with PE and she is PERC negative. Suspect her symptoms are likely due to abrupt withdrawal from opiate use after taking Suboxone. Suboxone is from a friend's prescription and not her own. Will place an IV, bolus IV fluids, screening labs, cxr, test and give a dose of Ativan and reassess. Serum test negative. She was unable to give a urine sample and had no UTI symptoms and UDS likely would not tire changer. Labs reviewed. Potassium 3.3, remainder of labs unremarkable. CXR negative. 1420 --patient denies any relief. Heart rate 80s. She does still appear restless. Will place a clonidine patch and give a dose of Toradol. 1700 --patient reassessed and she states she feels much better and feels good to go home. We will keep clonidine patch in place for the next week. We will send home with a few tabs of Ativan. life skills coach came to the ED to speak with patient but she was restless and they were unable to discuss with her at bedside. They will follow up with her tomorrow. Patient was given [facility] information to call tomorrow as she is interested in starting Suboxone once she is feeling better. Advised to follow up with the primary care doctor for re-evaluation. Usual and customary return precautions given prior to discharge. Medical Records Medical records reviewed: Yes I reviewed the patient's medical records. Imaging Data Radiologic Study: Radiologist's impression: XR PORTABLE CHEST AP CLINICAL HISTORY: shortness of breath, r/o acute disease. TECHNIQUE: 2D digital imaging was performed. COMPARISON: Chest x-ray 07/28/2020 FINDINGS: Heart size is normal. The mediastinum is not widened. Lungs are clear. No infiltrates nor obvious pleural effusions. IMPRESSION: No acute pulmonary findings on this single AP portable view of the chest. No significant change compared to 07/28/2020 Lab Data Lab results reviewed: Yes I reviewed the patient's lab results. Labs: Laboratory Tests Range/Units 08/10/20 08/10/20 08/10/20 13:40 13:40 13:40 WBC (4.4-10.8) 10^3/uL 6.39 RBC (3.93-5.22) 10^6/uL 4.27 Hgb (11.2-15.7) g/dL 12.9 Hct (36.0-46.0) % 39.5 MCV (80-95) fL 92.5 MCH (27.0-33.0) pg 30.2 MCHC (32.0-36.0) % 32.7 RDW (11.7-14.6) % 12.6 Plt Count (130-400) 10^3/uL 264 MPV (8.0-11.0) fL 9.7 Immature Gran % 0.3 Neutrophils % 64.8 Lymphocytes % 21.0 Monocytes % 8.8 Eosinophils % 4.9 Basophils % 0.2 Nucleated RBC % % 0 Absolute Neutrophils (1.2-6.7) 10^3/uL 4.15 Absolute Lymphocytes (1.2-3.4) 10^3/uL 1.34 Absolute Monocytes (0.1-0.8) 10^3/uL 0.56 Absolute Eosinophils (0.0-0.7) 10^3/uL 0.31 Absolute Basophils (0.0-0.2) 10^3/uL 0.01 Sodium (136-145) mmol/L 139 Potassium (3.5-5.1) mmol/L 3.3 L Chloride (98-107) mmol/L 104 Carbon Dioxide (21.0-32.0) mmol/L 25.1 Anion Gap (3-11) mmol/L 9.9 BUN (7-18) mg/dL 14 Creatinine (0.55-1.02) mg/dL 0.8 Estimated GFR/1.73 m2 (mL/min/1.73m2) >= 60.00 Glucose (74-106) mg/dL 124 H Calcium (8.5-10.1) mg/dL 8.6 Total Bilirubin (0.2-1.0) mg/dL 0.5 AST (15-37) U/L 23 ALT (14-59) U/L 47 Alkaline Phosphatase (46-116) U/L 96 Total Protein (6.4-8.2) g/dL 7.0 Albumin (3.4-5.0) g/dL 3.5 Serum HCG, Qual Negative ECG Data Attestation: I personally reviewed and interpreted this ECG (s) as follows: Interpretation: Rate of 98, sinus, no acute ST elevation or depression. IN 154. QRS 44. QTc 478. HPI General Mode of arrival: ambulatory. Date/Time Provider Initiated Documentation: 08/10/20 13:11. Limitations to Documentation: no limitations. Information obtained by: patient. HPI Narrative: Patient is a 34-year-old female with a history of daily heroin use over the past few weeks, presents with concern for overdose or withdrawal after taking Suboxone this morning. She states she has been snorting heroin daily for the last few weeks with the last used at 7 PM last night. She states this morning she felt that she wanted to stop using and took a dose of her friend Suboxone at 11 AM. She states within 30 minutes she developed restlessness, body aches, and generally not feeling well. She denies any chest pain or shortness of breath at this time. She states she drinks alcohol occasionally, and last use of 1 drink yesterday. She denies any other drug use. Related Data Home Medications Medication Instructions Recorded Confirmed Flovent HFA 110 mcg INHALATION BID inhaler 12/21/13 07/28/20 ibuprofen [Ibuprofen IB] 600 mg PO PRN PRN 08/01/16 07/28/20 acetaminophen [Mapap Extra 1,000 mg PO Q6H 5 Days #60 tab 10/02/17 07/28/20 Strength] Previous Rx's Medication Instructions Recorded acetaminophen [Mapap Extra 1,000 mg PO Q6H 5 Days #60 tab 10/02/17 Strength] Allergies Allergy/AdvReac Type Severity Reaction Status Date / Time Sulfa (Sulfonamide Allergy Severe Hives Unverified 07/28/20 11:55 Antibiotics) General YUN: 3 Review of Systems All systems reviewed & are unremarkable except as noted in HPI and below Constitutional Constitutional: Reports as per HPI, Reports body ache(s), Denies chills, Denies fever(s) and Reports malaise Eyes Eyes: Denies blurry vision ENT Ears, Nose, Mouth, and Throat: Denies dizziness, Denies sore throat and Denies throat swelling Cardiovascular Cardiovascular: Denies chest pain and Denies dyspnea Respiratory Respiratory: Denies cough and Denies dyspnea Gastrointestinal Gastrointestinal: Denies abdominal pain, Denies diarrhea and Denies vomiting Genitourinary Genitourinary: Denies hematuria and Denies dysuria Musculoskeletal Musculoskeletal: Denies back pain and Denies numbness Integumentary/Breasts Skin/Breast: Denies lesions and Denies rash Neurologic Neurologic: Denies dizziness, Denies localized weakness and Denies numbness Allergic/Immunologic Allergic/Immunologic: Denies throat swelling [facility] Medical History Anxiety Asthma Depression GERD (gastroesophageal reflux disease) Surgical History S/P arthroscopic knee surgery S/P tubal ligation Social History Smoking/Tobacco Use Status: Current every day Tobacco Type: cigarettes Smoking risk assessment performed?: Yes Alcohol Intake: current Alcohol Intake frequency: a few times a week Drug use: Rarely Substance use type: does not use Do you feel safe at home: Yes Do you feel safe in your relationship?: Yes Female Reproductive History Menstrual control method: permanent sterilization Exam Const General: cooperative, uncomfortable and no acute distress Orientation: alert, awake and oriented x3 HENMT Head: normal to inspection Face and sinus: normal facial exam Eyes General: appearance normal, both eyes and all related structures Pupils: PERRL EOM: EOM intact bilaterally Neck Neck: normal visual inspection and No submandibular swelling Lymphatic: no lymphadenopathy noted Chest Chest: normal inspection of the chest and no tenderness Resp Effort & Inspection: normal respiratory effort and able to speak in complete sentences Auscultation: clear to auscultation bilaterally Cardio Rate: regular rate Rhythm: regular rhythm GI Inspection: normal to inspection Palpation: soft, not firm, not rigid and nontender Auscultation: normal bowel sounds Skin General skin exam: no rashes or lesions noted Neuro General: patient alert, patient awake and patient oriented x3 Cognition: normal cognition Speech: speech normal Motor: muscle tone normal throughout Sensory Exam: no sensory deficits noted Extrem General: normal to inspection, full ROM, capillary refill normal, no calf tenderness bilaterally and no edema Psych Appearance: grossly normal Mental Status: mental status grossly normal Speech and Movement: speech and movement normal Affect: normal affect
[2020-08-10 13:14] VITALS: BP 157/84; PULSE 84; RESP 16; TEMP 36.9; O2SAT 97
[2020-08-10 13:19] VITALS: BP 157/84; PULSE 85; PULSE 87; RESP 20; O2SAT 97
[2020-08-10 13:20] VITALS: PULSE 86; RESP 24; O2SAT 97
--- NOTE | 2020-08-10 13:30 | RT.EKG_ITS ---
APPROVED REPORT Exam: Resting ECG Reason for Exam: chest pain Patient Location: E HR:90 bpm ECG Measurements Heart Rate 90 AXIS MI 154 P 36 QRSd 80 QRS 44 QT 391 T 31 QTc 478 Conclusion Sinus rhythm...normal P axis, V-rate 60- 99. No STEMI. I have reviewed and interpreted ECG and agree with software generated interpretation.
[2020-08-10 13:55] LABS: Abs Immature Grans 0.02 10^3/uL (0.0-0.06); Absolute Basophil Count 0.01 10^3/uL (0.0-0.2); Absolute Eosinophil Count 0.31 10^3/uL (0.0-0.7); Absolute Lymphocyte Count 1.34 10^3/uL (1.2-3.4); Absolute Monocyte Count 0.56 10^3/uL (0.1-0.8); Absolute Neutrophil Count 4.15 10^3/uL (1.2-6.7); Basophils % 0.2; Eosinophils % 4.9; HCT 39.5 % (36.0-46.0); HGB 12.9 g/dL (11.2-15.7); Immature Grans % 0.3; MCH 30.2 pg (27.0-33.0); MCHC 32.7 % (32.0-36.0); MCV 92.5 fL (80-95); MPV 9.7 fL (8.0-11.0); Monocytes % 8.8; Neutrophils % 64.8; Nucleated RBC 0 %; Platelet Count 264 10^3/uL (130-400); RBC 4.27 10^6/uL (3.93-5.22); RDW 12.6 % (11.7-14.6); WBC 6.39 10^3/uL (4.4-10.8)
[2020-08-10 14:00] VITALS: PULSE 90; RESP 18; O2SAT 96
[2020-08-10 14:09] LABS: ALT 47 U/L (14-59); AST 23 U/L (15-37); Albumin 3.5 g/dL (3.4-5.0); Alkaline Phosphatase 96 U/L (46-116); Anion Gap 9.9 mmol/L (3-11); BUN 14 mg/dL (7-18); Bilirubin, Total 0.5 mg/dL (0.2-1.0); CO2 25.1 mmol/L (21.0-32.0); CREATININE 0.8 mg/dL (0.55-1.02); Calcium 8.6 mg/dL (8.5-10.1); Chloride 104 mmol/L (98-107); Glucose 124 mg/dL (74-106); Potassium 3.3 mmol/L (3.5-5.1); Sodium 139 mmol/L (136-145)
[2020-08-10] MEDS: Normal Saline 1,000 ML 1000 ML IV ×2 (14:12→15:32)
[2020-08-10] MEDS: LORazepam 2 MG/ML VIAL 0.5 MG IVP (14:12)
[2020-08-10 14:15] VITALS: BP 158/88; PULSE 90; RESP 31; O2SAT 98
[2020-08-10 14:24] LABS: HCG Qual (Serum) Negative
--- NOTE | 2020-08-10 14:35 | DI.RAD_ITS ---
Exam(s) XR PORTABLE CHEST AP EXAM: XR PORTABLE CHEST AP CLINICAL HISTORY: shortness of breath, r/o acute disease. TECHNIQUE: 2D digital imaging was performed. COMPARISON: Chest x-ray 07/28/2020 FINDINGS: Heart size is normal. The mediastinum is not widened. Lungs are clear. No infiltrates nor obvious pleural effusions. IMPRESSION: No acute pulmonary findings on this single AP portable view of the chest. No significant change compared to 07/28/2020 DATA REPOSITORY: RADIATION DOSE DELIVERED: All CT scans at this facility use at least one of these dose optimization techniques: automated exposure control; mA and/or kV adjustment per patient size (includes targeted e xams where dose is matched to clinical indication); or iterative reconstruction.
[2020-08-10] MEDS: Potassium Chloride 20 MEQ TABCR PO (14:41)
[2020-08-10] MEDS: Ketorolac 30 MG/ML VIAL IVP (14:41)
[2020-08-10] MEDS: cloNIDine 0.1 MG PATCH TD (14:56)
[2020-08-10] MEDS: LORazepam 2 MG/ML VIAL 1 MG IVP (15:20)
[2020-08-10 17:13] VITALS: TEMP 37.4
--- NOTE | 2020-08-10 17:27 | NUR.NOTE ---
Nursing Note: Referral given to Care Management that the patient is potentially interested in starting suboxone Ghazala Jordan
[2020-08-10] MEDS: LORazepam 0.5 MG TAB 2 MG PO (17:29)
== END 2020-08-10 17:40 | disposition home or self-care (01) ==
PROVIDERS: Emergency Provider Physician Assistant; PCP Family Medicine
DX: F11.13 Opioid abuse with withdrawal (principal); R45.1 Restlessness and agitation; M79.10 Myalgia, unspecified site
CPT/HCPCS: 36415; 80053; 93005; 96361; 96374; 96375; 96376; 99285; 71045; 84703; 85025; 93010; J1885; J2060

== ENCOUNTER 2021-05-29 09:17 | Emergency (ER) | payer MEDICAID, SELFPAY ==
[2021-05-29] VITALS (17 sets, daily range): BP systolic 94–142; BP diastolic 56–101; PULSE 65–99; RESP 16–18; TEMP 36.6; O2SAT 90–96
--- NOTE | 2021-05-29 09:00 | RT.EKG_ITS ---
APPROVED REPORT Exam: Resting ECG Reason for Exam: EMANI CRUZ Patient Location: E HR:82 bpm ECG Measurements Heart Rate 82 AXIS MO 147 P 35 QRSd 80 QRS 25 QT 370 T 28 QTc 431 Conclusion Sinus rhythm...normal P axis, V-rate 60- 99. Sinus. Normal axis. No STEMI. I have reviewed and interpreted ECG and agree with software generated interpretation.
--- NOTE | 2021-05-29 09:45 | ED.GENADUL_ITS ---
Discharge Plan Disposition Patient Disposition: HOME Condition: Stable Discharge Details Clinical Impression: COVID-19 Primary Care Provider: Abdoulaye Pratt ED Provider: Laura Fink Home Meds and New Rx's Prescriptions: New ondansetron HCl 4 mg tablet 4 mg PO DAILY Qty: 10 0RF albuterol sulfate 90 mcg/actuation HFA aerosol inhaler 2 puff inhalation Q6H PRNQty: 6.7 0RF potassium chloride 20 mEq tablet extended release 20 meq PO DAILY Qty: 5 0RF Continued Flovent HFA 12 GM HFA aerosol inhaler 110 mcg Inhalation BID 0RF Label Comments: uses prn ibuprofen [Ibuprofen IB] 200 MG tablet 600 mg PO PRN PRN0RF acetaminophen [Mapap Extra Strength] 500 MG tablet 1,000 mg PO Q6H 5 Days Qty: 60 0RF Discharge Instructions Instructions: Viral Syndrome (ED) Additional Instructions: Take Zofran as needed for nausea and vomiting Ibuprofen and Tylenol for pain control Use albuterol, 2 puffs every 4-6 hours as needed for cough or shortness of breath Check your oxygen levels, if it dips below 90% he should return to the emergency department, you must isolate for 10 days from onset of symptoms Your family should also isolate for 10 days I recommend vaccination Take the PAXLOVID PRESCRIBED Return earlier should you have any worsening complaints Your potassium is slightly low, take the potassium as prescribed Discharge Data Discharge Date/Time-TO BE ENTERED AT DEPARTURE: 05/29/21 12:45 Medical Decision Making Patient COVID-19 positive, given pulse oximeter to check her oxygen status at home Symptoms likely related to COVID-19 is an unvaccinated individual Discussed benefits of vaccine with patient Diagnostic labs reviewed without significant acute abnormality Feeling dramatically improved Instruction discussed regarding isolation Ibuprofen and Tylenol for fever control Albuterol inhaler for home Return precaution discussed and patient expressed understanding, discharged home in stable condition with stable vitals Medical Records Medical records reviewed: Yes I reviewed the patient's medical records. Lab Data Lab results reviewed: Yes I reviewed the patient's lab results. HPI General Date/Time Provider Initiated Documentation: 05/29/21 09:24 . HPI Narrative: 35-year-old female with history of opiate use, depression, anxiety, asthma presents with report of fevers, 100.6 this weekend, pain between her shoulder blades which started Friday of this week. States she also has sore throat. Denies any shortness of breath aside from pleuritic pain which makes it feel like she cannot take a complete inhalation. She states this feels different than her anxiety. She also states this is different from her asthma history. She denies any chest pain or swelling but has had swelling in her arms which started this morning. Has not used IV drugs since August of last year. Denies any headache or stiff neck. Has not had fever since Friday reportedly. Denies chance of . Related Data Home Medications Medication Instructions Recorded Confirmed fluticasone propionate 110 110 mcg INHALATION BID inhaler 12/21/13 05/29/21 mcg/actuation HFA aerosol inhaler (Flovent HFA) ibuprofen 200 mg tablet (Ibuprofen 600 mg PO PRN PRN 08/01/16 05/29/21 IB) acetaminophen 500 mg tablet (Mapap 1,000 mg PO Q6H 5 Days #60 tab 10/02/17 05/29/21 Extra Strength) albuterol sulfate 90 mcg/actuation 2 puff INHALATION Q6H PRN #6.7 g 05/29/21 aerosol inhaler ondansetron HCl 4 mg tablet 4 mg PO DAILY #10 tab 05/29/21 potassium chloride 20 mEq 20 meq PO DAILY #5 tab 05/29/21 tablet,extended release Previous Rx's Medication Instructions Recorded acetaminophen 500 mg tablet (Mapap 1,000 mg PO Q6H 5 Days #60 tab 10/02/17 Extra Strength) albuterol sulfate 90 mcg/actuation 2 puff INHALATION Q6H PRN #6.7 g 05/29/21 aerosol inhaler ondansetron HCl 4 mg tablet 4 mg PO DAILY #10 tab 05/29/21 potassium chloride 20 mEq 20 meq PO DAILY #5 tab 05/29/21 tablet,extended release Allergies Allergy/AdvReac Type Severity Reaction Status Date / Time Sulfa (Sulfonamide Allergy Severe Hives Unverified 05/29/21 09:23 Antibiotics) General Stated Complaint: GenMedical YUN: 3 Review of Systems All systems reviewed & are unremarkable except as noted in HPI and below PFSH All Active Problems (Updated 05/29/21 @ 12:44 by MAIKEL Mendoza) Stimulant intoxication (Acute) Use of nonprescription opiate drugs (Acute) Acute dyspnea (Acute) Opiate withdrawal (Acute) COVID-19 (Acute) GERD (gastroesophageal reflux disease) (Chronic) Depression (Chronic) Asthma (Chronic) Anxiety (Chronic) Medical History Anxiety Asthma Depression GERD (gastroesophageal reflux disease) Surgical History S/P arthroscopic knee surgery S/P tubal ligation Social History Smoking/Tobacco Use Status: Current every day Tobacco Type: cigarettes Smoking risk assessment performed?: Yes Alcohol Intake: current Alcohol Intake frequency: a few times a week Alcohol type: beer and wine Drug use: Rarely Substance use type: does not use Do you feel safe at home: Yes Do you feel safe in your relationship?: Yes Female Reproductive History Menstrual control method: permanent sterilization Exam Const General: cooperative, comfortable and no acute distress HENMT Other: Uvula midline, no exudate Eyes Pupils: PERRL Neck Other: No meningismus Resp Effort & Inspection: normal respiratory effort Auscultation: clear to auscultation bilaterally Cardio Rate: regular rate Rhythm: regular rhythm GI Inspection: normal to inspection Other: Nontender abdominal exam Skin Other: Papules located on his bilateral lower extremity, no petechia or purpura Neuro General: patient alert and patient oriented x3 Extrem Other: Distal pulses intact to all 4 extremities Sensation intact distally Course Vital Signs Vital signs: Vital Signs Temperature 36.6 C 05/29/21 09:18 Pulse 85 05/29/21 09:18 Respiratory Rate 18 05/29/21 09:18 Blood Pressure 142/101 H 05/29/21 09:18 Pulse Oximetry 96 05/29/21 09:18 Temperature 36.6 C 05/29/21 09:18 Temperature Source Temporal Artery Scan 05/29/21 09:18 Pulse 85 05/29/21 09:18 Respiratory Rate 18 05/29/21 09:18 Respiratory Effort Non-Labored 05/29/21 09:22 Blood Pressure 142/101 H 05/29/21 09:18 Blood Pressure Position Sitting 05/29/21 09:18 Pulse Oximetry 96 05/29/21 09:18 Oxygen Delivery Method Room Air 05/29/21 09:18 Oxygen Flow Rate 0 05/29/21 09:18 Pain Level 8 05/29/21 09:18 Lab/Test Results Lab/Test Results: 05/29/21 09:40 Blood Blood Culture - Pending 05/29/21 09:40 Blood Blood Culture - Pending KIRILL Have you Been Recently Intoxicated or Drunk Within the Last 30 days?: No Have you Ever Experienced Previous Episodes of Alcohol Withdrawal?: No Have you ever Experienced Withdrawal Seizures?: No Have you ever Experienced Delirium Tremens(DT)s?: No Have you ever undergone Alcohol Rehabilitation Treatment (i.e, inpt ot outpatient treatment programs)?: No Have you ever Experienced Blackouts?: No Have you ever Combined Alcohol with other Downers within the last 90 days?: No Have you ever Combined Alcohol with any other Substance of Abuse during the last 90 days?: No Positive Blood Alcohol level on Presentation? [PCS.BAL]: No Evidence of Increased Autonomic Activity (i.e. HR>120, tremor, sweating, agitation, nausea)?: No Result: 0
[2021-05-29] MEDS: Ketorolac 15 MG/ML VIAL IVP (10:01)
[2021-05-29 10:02] LABS: Source Nasal/Nares
[2021-05-29 10:08] LABS: Abs Immature Grans 0.01 10^3/uL (0.0-0.06); Absolute Basophil Count 0.01 10^3/uL (0.0-0.2); Absolute Lymphocyte Count 1.19 10^3/uL (1.2-3.4); Absolute Monocyte Count 0.54 10^3/uL (0.1-0.8); Basophils % 0.2; HCT 41.4 % (36.0-46.0); HGB 13.4 g/dL (11.2-15.7); Immature Grans % 0.2; Lactate 1.1 mmol/L (0.6-1.4); Lymphocytes % 28.5; MCH 29.6 pg (27.0-33.0); MCHC 32.4 % (32.0-36.0); MCV 91.4 fL (80-95); MPV 10.2 fL (8.0-11.0); Monocytes % 12.9; Neutrophils % 58.2; Platelet Count 174 10^3/uL (130-400); RBC 4.53 10^6/uL (3.93-5.22); RDW 13.5 % (11.7-14.6); RDW-SD 46.1 fL; WBC 4.17 10^3/uL (4.4-10.8)
[2021-05-29 10:13] LABS: Absolute Neutrophil Count 2.43 10^3/uL (1.2-6.7)
[2021-05-29 10:34] LABS: ALT 48 U/L (14-59); AST 33 U/L (15-37); Albumin 3.6 g/dL (3.4-5.0); Alkaline Phosphatase 93 U/L (46-116); Anion Gap 9.5 mmol/L (3-11); BUN 10 mg/dL (7-18); Bilirubin, Total 0.2 mg/dL (0.2-1.0); CO2 26.5 mmol/L (21.0-32.0); CREATININE 0.9 mg/dL (0.55-1.02); Calcium 8.2 mg/dL (8.5-10.1); Chloride 106 mmol/L (98-107); Glucose 113 mg/dL (74-106); NT-proBNP 51 pg/mL (<300); Potassium 3.3 mmol/L (3.5-5.1); Sodium 142 mmol/L (136-145); Total Protein 7.5 g/dL (6.4-8.2); Troponin I < 50 ng/L (<or=60)
[2021-05-29 10:46] LABS: D-Dimer 1106 ng/mlFEU (<500)
[2021-05-29 10:47] LABS: COVID-19 PCR POSITIVE (Negative)
--- NOTE | 2021-05-29 11:32 | DI.CT_ITS ---
Exam(s) CT CHEST PE CTA EXAM: CT CHEST PE CTA CLINICAL HISTORY: bilateral UE edema with shortness of breath and sc. TECHNIQUE: Imaging Protocol: CT angiography of the chest was performed using pulmonary embolus sharmin col. Multi planar reconstructions were performed. CONTRAST MATERIAL: Intravenous: Omnipaque 350 Contrast volume: 100 cc COMPARISON: CT CT RENAL COLIC WO from 02/22/2020 FINDINGS: CHEST: PULMONARY ARTERIES: There are no intraluminal filling defects to suggest acute pulmonary emboli. LUNGS: There is some diffuse ground-glass haziness throughout both upper lobes possibly related to ai r trapping and somewhat more symmetrical than seen with typical Covid. There are tiny bilateral pleu ral effusions and some mild atelectasis in both lung bases. MEDIASTINUM: Small lymph nodes are seen in both hilar regions as well as a few slightly prominent lym ph nodes in the subcarinal region. There is no axillary adenopathy. No supraclavicular adenopathy. Partially visualized lower half of the thyroid gland appears unremarkable. CARDIAC: Heart size is upper normal. There is no pericardial effusion.Caliber of the thoracic aorta is within normal limits. There is no significant shift of the interventricular septum. PARTIALLY VISUALIZED UPPERMOST ABDOMEN: Partially visualized liver appears slightly large. No obviou s adrenal masses. OSSEOUS: No significant osseous lesions.. IMPRESSION: 1. No evidence of acute pulmonary emboli. No evidence of pulmonary infarction.Tiny bilateral pleural effusions. Mild atelectasis in both lung bases. 2. Diffuse ground-glass haziness both upper lobes, this being symmetrical which is not usually the ca se in typical covid. 3. Probable hepatomegaly. RADIATION DOSE DELIVERED: 452.84mGy.cm Total DLP DATA REPOSITORY: All CT scans at this facility are submitted to the National Radiology Data Registry (NRDR) Dose Index Registry (DIR) with the [employer] (A[employer]). RADIATION OPTIMIZATION: All CT scans at this facility use at least one of these dose optimization te chniques: automated exposure control; mA and/or kV adjustment per patient size (includes targeted exa ms where dose is matched to clinical indication); or iterative reconstruction.
[2021-05-29] MEDS: Omnipaque 350 MG/ML 100 ML BTL IJ (11:36)
== END 2021-05-29 12:45 | disposition home or self-care (01) ==
PROVIDERS: Emergency Provider Physician Assistant; PCP Family Medicine
DX: U07.1 COVID-19 (principal); R07.9 Chest pain, unspecified; R06.02 Shortness of breath; R60.0 Localized edema
CPT/HCPCS: 36415; 71275; 80053; 81025; 87040; 87635; 93005; 96374; 99284; 99285; 83605; 83880; 84484; 85025; 85379; 93010; J1885; J3490

== ENCOUNTER 2022-03-05 13:32 | Emergency (ER) | payer MEDICAID, SELFPAY ==
[2022-03-05 13:35] VITALS: BP 171/111; PULSE 101; RESP 20; TEMP 36.8; O2SAT 97
--- NOTE | 2022-03-05 14:43 | W.ED.GENAD ---
Discharge Plan Disposition Patient Disposition: Home Condition: Stable Discharge Details Clinical Impression: Opiate withdrawal, Use of nonprescription opiate drugs, Infected dental caries Primary Care Provider: Abdoulaye Pratt ED Provider: Juancho Greenwood Home Meds and New Rx's Prescriptions: New amoxicillin-pot clavulanate 875-125 mg tablet 1 tab PO Q12H Qty: 14 0RF Discharge Instructions Instructions: Dental Caries (ED), Narcotic Withdrawal (ED), Narcotic Use Disorder (ED) Additional Instructions: Please continue to check in with the recovery unit operator and keep your appointment for establishment of long-term recovery plan for your narcotic use. If you have any new or significant worsening of symptoms return the emergency department for reassessment. Follow-up with your primary care provider as needed and keep your scheduled appointment for your dental reassessment given dental infection. Referrals: Abdoulaye Pratt [Primary Care Provider] - (As needed for reassessment) Discharge Data Discharge Date/Time-TO BE ENTERED AT DEPARTURE: 03/05/22 15:04 Medical Decision Making Patient presenting to the emergency department for 2 complaints. Patient first stating that she woke up and had some right-sided facial swelling secondary to a broken tooth. Patient also has been taking Suboxone on the street 3 mg daily but has not had any since Friday. Patient reports palpitations, nausea, feeling clammy and having anxiety attacks. She states she was initially addicted to painkillers and then started heroin and then wanted to stop so she started self dosing her self with Suboxone. She states she has been taking 12 mg films and cutting them in quarters. She states she is finally to the point of wanting recovery and has already called and got an appointment with [facility] for this . Physical exam shows mild tachycardia and slight clammy skin with some mild anxiety noted but no severe withdrawals and patient is otherwise stable. Patient does have fractured tooth #3 that is down to the gumline with surrounding erythema and noted facial swelling. Exam consistent with a dental infection. no signs of deep neck space infection ( Retropharyngeal abscess, Humberto's angina, Parapharyngeal space infection, Peritonsillar Abscess (PAEDIATRIC PHYSIOTHERAPIST)) or Epiglottitis. Pt non toxic and stable. We will plan on having recovery unit operator speak with patient, and starting patient on Augmentin for dental infection. Patient states she already has appointment scheduled for dental evaluation in March. technology coach spoke with patient and will be performing daily check-in's. I do not feel patient is at high risk for discharge but will give patient single dose of Suboxone in the emergency department. Did discuss with patient she may return for 1 additional dose tomorrow if she absolutely needs it otherwise she understands to follow-up for establishment of long-term care of her opiate abuse. After discussion of diagnosis and plan of care patient has no further needs, questions, or concerns and states clear understanding to return to the emergency department for any worsening symptoms. This documentation was generated using [employer] system, please disregard any oddities of phrase or misspellings. HPI General Mode of arrival: ambulatory. Date/Time Provider Initiated Documentation: 03/05/22 13:36. Limitations to Documentation: no limitations. Information obtained by: patient and RN notes reviewed. History of Present Illness 36 year old F presents to the emergency department with the chief complaint of Dental pain, withdrawal symptoms, described as mild, with intensity rated at 3. Quality is described as aching, and is localized to the mouth. Patient reports no radiation. Patient started experiencing this day(s) and it has been constant. No relieving factors improve symptom(s), No exacerbating factors reported . Patient notes loss of appetite and nausea/vomiting. Patient did receive the following treatments prior to arrival, NSAID Related Data Home Medications Medication Instructions Recorded Confirmed amoxicillin 875 mg-potassium 1 tab PO Q12H #14 tabs 03/05/22 clavulanate 125 mg tablet Previous Rx's Medication Instructions Recorded amoxicillin 875 mg-potassium 1 tab PO Q12H #14 tabs 03/05/22 clavulanate 125 mg tablet Allergies Allergy/AdvReac Type Severity Reaction Status Date / Time Sulfa (Sulfonamide Allergy Severe Hives Unverified 05/29/21 09:23 Antibiotics) General Stated Complaint: GenMedical YUN: 4 Review of Systems Constitutional Constitutional: Reports body ache(s), Reports chills, Denies headache(s) and Reports poor appetite Eyes Eyes: Denies change in vision ENT Ears, Nose, Mouth, and Throat: Reports dental pain and Denies headache(s) Cardiovascular Cardiovascular: Denies chest pain, Reports rapid heart rate and Denies dyspnea Respiratory Respiratory: Denies cough and Denies dyspnea Gastrointestinal Gastrointestinal: Reports nausea and Reports vomiting Genitourinary Genitourinary: Reports system reviewed and no additional complaints, except as documented Musculoskeletal Musculoskeletal: Reports system reviewed and no additional complaints, except as documented Integumentary/Breasts Skin/Breast: Denies rash Neurologic Neurologic: Denies confusion, Denies headache(s), Denies localized weakness and Denies convulsions Psychiatric Psychiatric: Reports anxiety, Denies confusion and Reports panic attacks PFSH All Active Problems (Updated 03/06/22 @ 17:53 by Codie Bronson NP) Stimulant intoxication (Acute) Use of nonprescription opiate drugs (Acute) Acute dyspnea (Acute) Opiate withdrawal (Acute) COVID-19 (Acute) Infected dental caries (Acute) Nausea vomiting and diarrhea (Acute) GERD (gastroesophageal reflux disease) (Chronic) Depression (Chronic) Asthma (Chronic) Anxiety (Chronic) Medical History Anxiety Asthma Depression GERD (gastroesophageal reflux disease) Surgical History S/P arthroscopic knee surgery S/P tubal ligation Social History Smoking/Tobacco Use Status: Current every day Tobacco Type: cigarettes Smoking risk assessment performed?: Yes Alcohol Intake: current Alcohol Intake frequency: a few times a week Alcohol type: beer and wine Drug use: Rarely Substance use type: former substance user Details: suboxone off streets daily Do you feel safe at home: Yes Do you feel safe in your relationship?: Yes Female Reproductive History Menstrual control method: permanent sterilization Exam Const General: cooperative, no acute distress and not ill appearing Orientation: alert, awake and oriented x3 HENMT Head: normal to inspection and normocephalic Ears: hearing grossly normal bilaterally and external ears normal General nose exam: external nose normal Face and sinus: tenderness on the right maxilla Teeth and gingiva: caries, gingiva abnormal edematous and tender and other (fractured tooth #3) Throat: posterior oropharynx normal, tonsils normal and uvula midline Resp Effort & Inspection: normal respiratory effort, able to speak in complete sentences and no respiratory distress Auscultation: clear to auscultation bilaterally Cardio Rate: tachycardic Rhythm: regular rhythm Heart Sounds: S1 normal and S2 normal Skin General skin exam: no rashes or lesions noted Neuro General: patient alert, patient awake, patient oriented x3, moves all extremities and no focal motor deficits Sensory Exam: no sensory deficits noted Course Vital Signs Vital signs: Vital Signs Temperature 36.8 C 03/05/22 13:35 Pulse 101 H 03/05/22 13:35 Respiratory Rate 20 03/05/22 13:35 Blood Pressure 171/111 H 03/05/22 13:35 Pulse Oximetry 97 03/05/22 13:35 Temperature 36.8 C 03/05/22 13:35 Temperature Source Skin 03/05/22 13:35 Pulse 101 H 03/05/22 13:35 Respiratory Rate 20 03/05/22 13:35 Blood Pressure 171/111 H 03/05/22 13:35 Blood Pressure Position Sitting 03/05/22 13:35 Pulse Oximetry 97 03/05/22 13:35 Oxygen Delivery Method Room Air 03/05/22 13:35 Oxygen Flow Rate 0 03/05/22 13:35
[2022-03-05] MEDS: Ondansetron O.D.T. 4 MG TABEF, 3 TABS/BTL PO (14:58)
[2022-03-05] MEDS: Amoxicillin 875/Clav. 125 TAB PO (14:58)
[2022-03-05] MEDS: Buprenorphine/Naloxone 4 mg/1 mg FILM 1 EACH SL (14:58)
== END 2022-03-05 15:04 | disposition home or self-care (01) ==
PROVIDERS: Emergency Provider Nurse Practitioner Family; PCP Family Medicine
DX: F11.23 Opioid dependence with withdrawal (principal); K02.9 Dental caries, unspecified
CPT/HCPCS: 99283; 99284

== ENCOUNTER 2022-03-06 15:59 | Emergency (ER) | payer MEDICAID, SELFPAY ==
[2022-03-06 16:05] VITALS: BP 164/105; PULSE 95; RESP 20; TEMP 36.3; O2SAT 100
--- NOTE | 2022-03-06 16:54 | W.ED.GENAD ---
Discharge Plan Disposition Patient Disposition: Home Condition: Stable Discharge Details Clinical Impression: Opiate withdrawal, Nausea vomiting and diarrhea Primary Care Provider: Abdoulaye Pratt ED Provider: Codie Bronson Home Meds and New Rx's Prescriptions: New ondansetron 4 mg tablet,disintegrating 4 mg PO Q8H PRN (Reason: nausea and vomiting) 4 Days Qty: 9 0RF Rx Instructions: Take 1 tablet up to 3 times daily as needed for nausea and vomiting 20 minutes prior to meals. clonidine HCl 0.1 mg tablet 0.1 mg PO BID PRN (Reason: withdrawal symptoms) 5 Days Qty: 10 0RF Rx Instructions: Take 1 tablet up to 2 times daily as needed for withdrawal symptoms. Please take your blood pressure prior to taking the medication do not take if it is less than 100 systolic. Continued amoxicillin-pot clavulanate 875-125 mg tablet 1 tab PO Q12H Qty: 14 0RF Discharge Instructions Instructions: Acute Nausea and Vomiting (ED) Additional Instructions: Please take the medications as prescribed. please continue to keep your appointment with [facility] tomorrow to discuss additional monitoring and prescription for Suboxone. You may also contact [facility]. ?[address] [place] [address] Dr, [place] [address] Phone:?[phone] If you have not already done so. Follow up with primary care provider in 3-5 days. Return to ED sooner if any worsening or concerns. Increase oral fluids. Do not use opiates while taking the Suboxone. Please take Tylenol or Ibuprofen with food every 4-6 hours as needed for pain and swelling. Referrals: Abdoulaye Pratt [Primary Care Provider] - 2 weeks Discharge Data Discharge Date/Time-TO BE ENTERED AT DEPARTURE: 03/06/22 18:10 Medical Decision Making 36-year-old female presents to the ER with chief complaint of opiate withdrawal type symptoms after receiving a 4 mg Suboxone film here in the ER yesterday. She does have an appointment to follow-up with [facility] tomorrow. She was instructed that if she had a severe symptoms to return to the ER for an additional dosing. She does endorse nausea, no vomiting she does endorse diarrhea and some palpitations. Patient was given 4 mg of Suboxone as given previously, loperamide 2 mg here in 1 to go for diarrhea. Patient was prescribed Zofran as needed and clonidine as needed withdrawal type symptoms. However I did discuss with patient not to take it if her blood pressure is low she verbalizes understanding and does have a blood pressure monitor at home and she states she is a [employer]. She reports that she will keep her appointment tomorrow and I did encourage her to follow-up. I also gave her the [facility] clinic information if not already called. Vital signs much improved prior to discharge. Discussed strict return instructions and follow-up care. This text was generated using [employer] system, please disregard any oddities of phrase or misspellings. Medical Records Medical records reviewed: Yes I reviewed the patient's medical records. HPI General Mode of arrival: ambulatory. Date/Time Provider Initiated Documentation: 03/06/22 16:00. Limitations to Documentation: no limitations. Information obtained by: patient, RN notes reviewed and old records reviewed. HPI Narrative: 36-year-old female presents to the ER with chief complaint of opiate withdrawal type symptoms after receiving a 4 mg Suboxone film here in the ER yesterday. She does have an appointment to follow-up with [facility] tomorrow. She was instructed that if she had a severe symptoms to return to the ER for an additional dosing. She does endorse nausea, no vomiting she does endorse diarrhea and some palpitations. Initially she presents Hypertensive and slightly tachycardic. No other associated symptoms. Past medical history includes GERD, depression, asthma anxiety, surgical history includes arthroscopic knee surgery and tubal ligation. Related Data Home Medications Medication Instructions Recorded Confirmed amoxicillin 875 mg-potassium 1 tab PO Q12H #14 tabs 03/05/22 clavulanate 125 mg tablet clonidine HCl 0.1 mg tablet 0.1 mg PO BID PRN withdrawal 03/06/22 symptoms 5 days #10 tabs ondansetron 4 mg disintegrating 4 mg PO Q8H PRN nausea and 03/06/22 tablet vomiting 4 days #9 tabs Previous Rx's Medication Instructions Recorded amoxicillin 875 mg-potassium 1 tab PO Q12H #14 tabs 03/05/22 clavulanate 125 mg tablet clonidine HCl 0.1 mg tablet 0.1 mg PO BID PRN withdrawal 03/06/22 symptoms 5 days #10 tabs ondansetron 4 mg disintegrating 4 mg PO Q8H PRN nausea and 03/06/22 tablet vomiting 4 days #9 tabs Allergies Allergy/AdvReac Type Severity Reaction Status Date / Time Sulfa (Sulfonamide Allergy Severe Hives Unverified 05/29/21 09:23 Antibiotics) General Stated Complaint: GenMedical YUN: 4 Review of Systems All systems reviewed & are unremarkable except as noted in HPI and below Constitutional Constitutional: Reports as per HPI, Reports body ache(s), Reports chills and Denies fever(s) Cardiovascular Cardiovascular: Denies chest pain and Reports palpitations Respiratory Respiratory: Denies change in phlegm color, Denies cough and Denies excessive phlegm production Gastrointestinal Gastrointestinal: Denies abdominal pain, Reports diarrhea and Reports nausea Endocrine Endocrine: Reports palpitations PFSH All Active Problems (Updated 03/06/22 @ 17:53 by Codie Bronson NP) Stimulant intoxication (Acute) Use of nonprescription opiate drugs (Acute) Acute dyspnea (Acute) Opiate withdrawal (Acute) COVID-19 (Acute) Infected dental caries (Acute) Nausea vomiting and diarrhea (Acute) GERD (gastroesophageal reflux disease) (Chronic) Depression (Chronic) Asthma (Chronic) Anxiety (Chronic) Medical History Anxiety Asthma Depression GERD (gastroesophageal reflux disease) Surgical History S/P arthroscopic knee surgery S/P tubal ligation Social History Smoking/Tobacco Use Status: Current every day Tobacco Type: cigarettes Smoking risk assessment performed?: Yes Alcohol Intake: current Alcohol Intake frequency: a few times a week Alcohol type: beer and wine Drug use: Rarely Substance use type: former substance user Details: suboxone off streets daily Do you feel safe at home: Yes Do you feel safe in your relationship?: Yes Female Reproductive History Menstrual control method: permanent sterilization Exam Narrative Exam Narrative: Constitutional: Alert and oriented x3. Appears stated age. Overweight body habitus. Head: Normocephalic, no trauma. Eyes: Pupils PERRL, Red reflex noted, EOM's intact. Eyelids symmetrical without lesions, discharge, or swelling. ENT: Bilateral TM's WNL, External ear normal to inspection, no mastoid TTP, swelling, or erythema, Nasal turbinates WNL, no nasal discharge. Normal dentition, Posterior pharynx WNL, no exudate. Chest: RRR, Normal S1, S2, distal pulses intact. Resp: Lungs clear to auscultation bilaterally, no wheezes, rales, or rhonchi. Abdomen: Soft, non-distended, Normoactive bowel sounds all 4 quads. Musculoskeletal: Normal gait, 5/5 strength to all four extremities. Skin: No suspicious rashes or lesions. Capillary refill less than 2 sec. Neurologic: Cranial nerves II-XII intact. Alert and oriented x 3. Motor: No deficits noted. Sensory: Intact bilaterally all 4 extremities. Reflexes: DTR's intact bilaterally.. Hematologic/Lymphatic: No ecchymosis, no lymphadenopathy. Course Vital Signs Vital signs: Vital Signs Temperature 36.3 C L 03/06/22 16:05 Pulse 95 H 03/06/22 16:05 Respiratory Rate 20 03/06/22 16:05 Blood Pressure 164/105 H 03/06/22 16:05 Pulse Oximetry 100 03/06/22 16:05 Temperature 36.3 C L 03/06/22 16:05 Temperature Source Tympanic 03/06/22 16:05 Pulse 95 H 03/06/22 16:05 Respiratory Rate 20 03/06/22 16:05 Blood Pressure 164/105 H 03/06/22 16:05 Blood Pressure Position Sitting 03/06/22 16:05 Pulse Oximetry 100 03/06/22 16:05 Oxygen Delivery Method Room Air 03/06/22 16:05 Oxygen Flow Rate 0 03/06/22 16:05 Pain Level 0 03/06/22 16:05
[2022-03-06] MEDS: Buprenorphine/Naloxone 4 mg/1 mg FILM 1 EACH SL (17:20)
[2022-03-06] MEDS: Loperamide 2 MG CAP PO ×2 (17:20→18:05)
[2022-03-06 17:58] VITALS: BP 134/89; PULSE 80; RESP 15; O2SAT 97
== END 2022-03-06 18:10 | disposition home or self-care (01) ==
PROVIDERS: Emergency Provider Registered Nurse Emergency; PCP Family Medicine
DX: F11.23 Opioid dependence with withdrawal (principal); R11.2 Nausea with vomiting, unspecified; R19.7 Diarrhea, unspecified; R00.2 Palpitations; J45.909 Unspecified asthma, uncomplicated; E66.3 Overweight
CPT/HCPCS: 99283; 99284

== ENCOUNTER 2022-05-04 14:40 | Emergency (ER) | payer MEDICAID, SELFPAY ==
[2022-05-04 14:54] VITALS: BP 166/90; PULSE 98; RESP 20; TEMP 36.3; O2SAT 98
--- NOTE | 2022-05-04 15:09 | W.ED.GENAD ---
Discharge Plan Disposition Patient Disposition: Home Condition: Improving Discharge Details Clinical Impression: Odontalgia Primary Care Provider: Abdoulaye Pratt ED Provider: Km Negro Home Meds and New Rx's Prescriptions: New clindamycin HCl 300 mg capsule 300 mg PO TID 9 Days Qty: 27 0RF Continued clonidine HCl 0.1 mg tablet 0.3 mg PO QID Patient Comments: TAKE ONE TABLET BY MOUTH TWICE A DAY buprenorphine-naloxone [Suboxone] 4-1 mg film 1 film sublingual DAILY Patient Comments: DISSOLVE 1 FILM UNDER THE TONGUE ONCE DAILY FOR 7 DAYS Discharge Instructions Instructions: Toothache (ED) Additional Instructions: Warm salt water gargles and rinses to reduce discomfort. Tylenol and/or ibuprofen as needed for pain. Take clindamycin 450 mg per dose today and then switch to the prescribed 300 mg per dose. Please follow-up with dentistry as planned. Return to the ER for any acute concerns. Medical Decision Making This is a 36-year-old female who presents from home with 1 day of right upper dental pain at the sites of buccal and lingual broken cusps, approximately tooth position #3. She does not have a fluctuant abscess. She has failed penicillins in the past and done well with clindamycin. She has follow-up with dentistry pending. I will place her on a course of clindamycin. She is stable and appropriate for outpatient management. She will follow-up with dentistry as planned. [facility] General Mode of arrival: ambulatory. Date/Time Provider Initiated Documentation: 05/04/22 15:01. Limitations to Documentation: no limitations. Information obtained by: patient. History of Present Illness 36 year old F presents to the emergency department with the chief complaint of Right upper dental pain since yesterday, described as mild and similar to prior episodes, Quality is described as dull and constant, and is localized to the right. Patient reports no radiation. Patient started experiencing this hour(s) and it has been constant. No relieving factors improve symptom(s), No exacerbating factors reported . Patient notes denies fever/chills. Patient did receive the following treatments prior to arrival, none Related Data Home Medications Medication Instructions Recorded Confirmed buprenorphine 4 mg-naloxone 1 mg 1 film sublingual DAILY 05/04/22 05/04/22 sublingual film (Suboxone) clindamycin HCl 300 mg capsule 300 mg PO TID 9 days #27 caps 05/04/22 clonidine HCl 0.1 mg tablet 0.3 mg PO QID 05/04/22 05/04/22 Previous Rx's Medication Instructions Recorded clindamycin HCl 300 mg capsule 300 mg PO TID 9 days #27 [facility] 05/04/22 Allergies Allergy/AdvReac Type Severity Reaction Status Date / Time Sulfa (Sulfonamide Allergy Severe Hives Unverified 05/04/22 14:58 Antibiotics) General Stated Complaint: DentalOral YUN: 4 Review of Systems Narrative: 6 systems reviewed and otherwise negative PFSH All Active Problems (Updated 05/04/22 @ 15:12 by Km Negro MD) Stimulant intoxication (Acute) Use of nonprescription opiate drugs (Acute) Acute dyspnea (Acute) Opiate withdrawal (Acute) COVID-19 (Acute) Odontalgia (Acute) GERD (gastroesophageal reflux disease) (Chronic) Depression (Chronic) Asthma (Chronic) Anxiety (Chronic) Surgical History S/P arthroscopic knee surgery S/P tubal ligation Social History Smoking/Tobacco Use Status: Current every day Tobacco Type: cigarettes Smoking risk assessment performed?: Yes Alcohol Intake: current Alcohol Intake frequency: 3 or more drinks per day Alcohol type: beer and hard liquor Drug use: Rarely Substance use type: former substance user Details: perscribed suboxone, current opiod sobriety. drinking 3-6 drinks a day, working with outpatient supports to start getting sober from alcohol. Do you feel safe at home: Yes Do you feel safe in your relationship?: Yes Female Reproductive History Menstrual control method: permanent sterilization Exam Narrative Exam Narrative: GEN: awake, alert, oriented 3. Pleasant, well groomed, interactive. HEAD: Normocephalic, atraumatic ENT: Mucous membranes moist, oropharynx with dental caries, tooth position #3 with broken buccal and lingual cusps, mild tenderness, no fluctuance, tympanic membrane's visualized and clear bilaterally, External ear exam unremarkable EYES: PERRL, EOMI NECK: Full ROM, no MARY, no menigismus CHEST/RESP: No respiratory distress EXT: Full ROM, no edema, no rash Neuro: Grossly normal neurologic exam, conversant, interactive. Psych: Speech fluent, thoughts congruent, affect normal Course Vital Signs Vital signs: Vital Signs Temperature 36.3 C L 05/04/22 14:54 Pulse 98 H 05/04/22 14:54 Respiratory Rate 20 05/04/22 14:54 Blood Pressure 166/90 H 05/04/22 14:54 Pulse Oximetry 98 05/04/22 14:54 Temperature 36.3 C L 05/04/22 14:54 Temperature Source Tympanic 05/04/22 14:54 Pulse 98 H 05/04/22 14:54 Respiratory Rate 20 05/04/22 14:54 Respiratory Effort Normal, Non-Labored 05/04/22 15:02 Blood Pressure 166/90 H 05/04/22 14:54 Blood Pressure Position Sitting 05/04/22 14:54 Pulse Oximetry 98 05/04/22 14:54 Oxygen Delivery Method Room Air 05/04/22 14:54 Oxygen Flow Rate 0 05/04/22 14:54 Pain Level 9 05/04/22 14:54
[2022-05-04] MEDS: Clindamycin 150 MG CAP, 12 CAPS/BTL 450 MG PO (15:26)
== END 2022-05-04 15:26 | disposition home or self-care (01) ==
PROVIDERS: Emergency Provider Emergency Medicine; PCP Family Medicine
DX: K08.89 Other specified disorders of teeth and supporting structures (principal)
CPT/HCPCS: 99283; 99284

== ENCOUNTER 2022-06-18 18:27 | Outpatient (REF) | payer MEDICAID, SELFPAY ==
[2022-06-18 15:33] LABS: Abs Immature Grans 0.02 10^3/uL (0.0-0.06); Absolute Basophil Count 0.03 10^3/uL (0.0-0.2); Absolute Eosinophil Count 0.12 10^3/uL (0.0-0.7); Absolute Lymphocyte Count 2.52 10^3/uL (1.2-3.4); Absolute Monocyte Count 0.51 10^3/uL (0.1-0.8); Absolute Neutrophil Count 4.97 10^3/uL (1.2-6.7); Basophils % 0.4; Eosinophils % 1.5; HCT 38.2 % (36.0-46.0); HGB 12.2 g/dL (11.2-15.7); Immature Grans % 0.2; Lymphocytes % 30.8; MCH 28.2 pg (27.0-33.0); MCHC 31.9 % (32.0-36.0); MCV 88 fL (80-95); MPV 9.5 fL (8.0-11.0); Monocytes % 6.2; Neutrophils % 60.9; Platelet Count 351 10^3/uL (130-400); RBC 4.33 10^6/uL (3.93-5.22); RDW 12.7 % (11.7-14.6); RDW-SD 41.5 fL; WBC 8.17 10^3/uL (4.4-10.8)
[2022-06-18 16:08] LABS: Hemoglobin A1C 5.5 % (<5.7)
[2022-06-18 16:22] LABS: ALT 35 U/L (14-59); AST 14 U/L (15-37); Albumin 3.7 g/dL (3.4-5.0); Alkaline Phosphatase 98 U/L (46-116); Anion Gap 7.6 mmol/L (3-11); BUN 20 mg/dL (7-18); Bilirubin, Total 0.1 mg/dL (0.2-1.0); CO2 29.4 mmol/L (21.0-32.0); CREATININE 0.9 mg/dL (0.55-1.02); Calcium 9.4 mg/dL (8.5-10.1); Calculated LDL 141 mg/dL (<100); Chloride 103 mmol/L (98-107); Cholesterol 228 mg/dL (<200); Estimated GFR 83.92 (mL/min/1.73m2); Glucose 101 mg/dL (74-106); HDL Cholesterol 33 mg/dL (40-60); Potassium 4.3 mmol/L (3.5-5.1); Sodium 140 mmol/L (136-145); TSH (W/Ref FT4) 0.99 uIU/mL (0.36-3.74); Total Protein 7.5 g/dL (6.4-8.2); Triglyceride 273 mg/dL (<150)
== END 2022-06-18 18:28 | disposition home or self-care (01) ==
LOC: NCHCN 18:27
PROVIDERS: PCP Family Medicine; Visit Provider Nurse Practitioner Family
DX: R53.83 Other fatigue (principal); Z83.49 Family history of other endocrine, nutritional and metabolic diseases; R73.03 Prediabetes; E78.79 Other disorders of bile acid and cholesterol metabolism
CPT/HCPCS: 80053; 80061; 83036; 84443; 85025

== ENCOUNTER 2022-09-24 13:58 | Emergency (ER) | payer MEDICAID, SELFPAY ==
[2022-09-24 14:00] VITALS: BP 135/101; PULSE 96; RESP 20; TEMP 36.5; O2SAT 100
--- NOTE | 2022-09-24 14:15 | DI.RAD_ITS ---
Exam(s) XR FOOT RT COMPLETE EXAM: XR FOOT RT COMPLETE CLINICAL HISTORY: Fall, lateral foot pain. TECHNIQUE: 2D digital imaging was performed. Three views. COMPARISON: No exams were available for comparison FINDINGS: BONES: No acute fracture is present. No bony destructive lesion is seen. JOINTS: No dislocation present. SOFT TISSUE: Normal. IMPRESSION: Unremarkable radiographs of the right foot. DATA REPOSITORY: RADIATION DOSE DELIVERED:
--- NOTE | 2022-09-24 14:15 | DI.RAD_ITS ---
Exam(s) XR ANKLE RT COMPLETE EXAM: XR ANKLE RT COMPLETE CLINICAL HISTORY: Lateral malleolus swelling, pain. TECHNIQUE: 2D digital imaging was performed. Three views. COMPARISON: No exams were available for comparison FINDINGS: BONES: No acute fracture is present. No bony destructive lesion is seen. Tiny heel spur JOINTS: The ankle mortise is normally aligned. SOFT TISSUE: Normal. IMPRESSION: Unremarkable radiographs of the right ankle. DATA REPOSITORY: RADIATION DOSE DELIVERED:
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
[2022-09-24] MEDS: Ibuprofen 600 MG TAB PO (14:38)
== END 2022-09-24 16:20 | disposition home or self-care (01) ==
PROVIDERS: Emergency Provider Registered Nurse Emergency; PCP Family Medicine
DX: S93.401A Sprain of unspecified ligament of right ankle, initial encounter (principal); X58.XXXA Exposure to other specified factors, initial encounter
CPT/HCPCS: 90471; 99284; 73610; 73630

== ENCOUNTER 2022-10-24 13:59 | Outpatient (REF) | payer MEDICAID, SELFPAY ==
--- NOTE | 2022-10-24 12:55 | PAPFT_PTH ---
PATIENT: Tiera Grider LOC: [facility] U#:[id number] AGE/SX: 36/F ROOM: RE10/24/[address]: MICHELL WOOTEN : 1985 BED: DIS: 10/24/2022 SPEC #: [id number] RECD: 10/24/22 18:27 STATUS: QUANG REQ #: [id number] VITO: 10/24/22 12:[address]: Michell Wooten DEPT: [facility] Cytology RECD BY: Laura Oshea ENTERED: 10/24/22 18:27 SP TYPE: PAPFT OTHR DR: Abdoulaye Pratt Tissues: 1 - CX/ENDOCX FOR PAP SMEARS Procedures: PAP THIN PREP/UVM Screening Comments: [id number] (CHLAMYDIA/GC) (UNSATISFACTORY FOR EVALUATION)
[2022-10-25 14:28] LABS: Chlamydia Result Negative (Negative); GC Result Negative (Negative)
[2022-10-27 13:25] LABS: HIV-1/2 Ag & Ab Screen Negative (Negative)
[2022-10-28 10:47] LABS: Syphilis Serology (RPR) Negative (Negative)
[2022-10-28 10:53] LABS: Hepatitis C Ab w Rflx HCV PCR Negative (Negative)
== END 2022-10-24 14:00 | disposition home or self-care (01) ==
LOC: NCHCN 13:59
PROVIDERS: PCP Family Medicine; Visit Provider Nurse Practitioner Family
DX: Z11.3 Encounter for screening for infections with a predominantly sexual mode of transmission (principal); Z11.4 Encounter for screening for human immunodeficiency virus [HIV]; Z11.59 Encounter for screening for other viral diseases; Z12.4 Encounter for screening for malignant neoplasm of cervix; R87.615 Unsatisfactory cytologic smear of cervix
CPT/HCPCS: 86803; 87389; 87491; 87591; 88142; 86592

== ENCOUNTER 2023-04-20 00:53 | Emergency (ER) | payer MEDICAID, SELFPAY ==
[2023-04-20] VITALS (22 sets, daily range): BP systolic 125–162; BP diastolic 71–139; PULSE 76–89; RESP 16–21; TEMP 37.1; O2SAT 92–95
--- NOTE | 2023-04-20 00:45 | RT.EKG_ITS ---
APPROVED REPORT Exam: Resting ECG Reason for Exam: epigastric pain Patient Location: E HR:81 bpm ECG Measurements Heart Rate 81 AXIS TN 147 P 19 QRSd 85 QRS 17 QT 385 T 28 QTc 448 Conclusion Sinus rhythm.. V-rate 60- 99 appropriate intervals, no ST segement or t wave abnormalities to suggest occlusive PR
--- NOTE | 2023-04-20 01:03 | ED.GENADUL_ITS ---
Discharge Plan Disposition Patient Disposition: Home Condition: Good Discharge Details Clinical Impression: Chest pain Primary Care Provider: Abdoulaye Pratt ED Provider: Kristen Conrad Home Meds and New Rx's Prescriptions: Continued clonidine HCl 0.1 mg tablet 0.3 mg PO TID PRN Patient Comments: TAKE ONE TABLET BY MOUTH TWICE A DAY buprenorphine-naloxone [Suboxone] 4-1 mg film 1 film sublingual DAILY Patient Comments: DISSOLVE 1 FILM UNDER THE TONGUE ONCE DAILY FOR 7 DAYS lisinopril 10 mg tablet 10 mg PO DAILY albuterol sulfate [Ventolin HFA] 90 mcg/actuation HFA aerosol inhaler 2 puff INHALATION PRN PRN Patient Comments: INHALE 2 PUFFS BY MOUTH EVERY 4-6 HOURS NEEDED escitalopram oxalate 5 mg tablet 5 mg PO DAILY Patient Comments: TAKE ONE TABLET BY MOUTH EVERY MORNING Discharge Instructions Instructions: Chest Pain (ED) Additional Instructions: Call your primary care doctor on Friday to schedule an appointment within 48 hours to follow up on your visit today. Return to the emergency department for new or worsening symptoms including if your chest pain returns, you have difficulty breathing, abdominal pain or back pain, or if you have any other concerns. Referrals: Abdoulaye Pratt [Primary Care Provider] - Discharge Data Discharge Date/Time-TO BE ENTERED AT DEPARTURE: 04/20/23 05:29 HPI General Mode of arrival: EMS . Date/Time Provider Initiated Documentation: 04/20/23 01:00 . Limitations to Documentation: no limitations . Information obtained by: patient and EMS . HPI Narrative: 37yo F with hx of asthma, GERD, presenting for epigastric abdominal pain. Woke up tonight with abdominal cramping and nausea, felt like she either going t vomit or have a bowel movement. Went to the bathroom and while on the toilet had severe epigastric pain radiating up into her neck. Does not feel like prior episodes of reflux. No chest pain, shortness of breath, lower abdominal pain, or flank pain. Did not vomit or have a bowel movement. No dysuria or hematuria. Was given IV tylenol by EMS prior to arrival; on arrival reports her pain is entirely resolved. She was in her usual state of health prior to waking with these symptoms with no fever, chills, rash, constipation, diarrhea, back pain, numbness, weakness, or other concerns. Related Data Home Medications Medication Instructions Recorded Confirmed buprenorphine 4 mg-naloxone 1 mg 1 film sublingual DAILY 05/04/22 09/24/22 sublingual film (Suboxone) clonidine HCl 0.1 mg tablet 0.3 mg PO TID PRN 05/04/22 04/20/23 albuterol sulfate 90 mcg/actuation 2 puff inhalation PRN PRN 09/24/22 09/24/22 aerosol inhaler (Ventolin HFA) escitalopram oxalate 5 mg tablet 5 mg PO DAILY 09/24/22 09/24/22 lisinopril 10 mg tablet 10 mg PO DAILY 09/24/22 09/24/22 Allergies Allergy/AdvReac Type Severity Reaction Status Date / Time Sulfa (Sulfonamide Allergy Severe Hives Unverified 09/24/22 14:03 Antibiotics) General Stated Complaint: Abd Prob YUN: 3 Review of Systems Narrative: see HPI Exam Narrative Exam Narrative: General: Alert, well appearing, well nourished, in no acute distress. Head: Normocephalic, atraumatic Neck: Trachea midline, ?Neck supple. ENT: ?MMM.? No oropharygeal lesions or exudate. Cardiac: ?RRR, no murmurs appreciated Resp: No respiratory distress. CTAB. Abd: ?Soft, non-distended, nontender : ?No suprapubic tenderness. No CVA tenderness. Extremities: ?No deformities.? No peripheral edema. Neurologic: GCS 15. ? Moves all extremities freely against gravity Course Vital Signs Vital signs: Vital Signs Temperature 37.1 C 04/20/23 00:52 Pulse 79 04/20/23 00:52 Respiratory Rate 18 04/20/23 00:52 Blood Pressure 138/93 H 04/20/23 00:52 Pulse Oximetry 94 04/20/23 00:52 Temperature 37.1 C 04/20/23 00:52 Pulse 79 04/20/23 00:52 Respiratory Rate 18 04/20/23 00:52 Respiratory Effort Normal 04/20/23 00:56 Blood Pressure 138/93 H 04/20/23 00:52 Pulse Oximetry 94 04/20/23 00:52 Medical Decision Making 37yo F with hx of asthma, GERD, presenting for epigastric abdominal pain. Woke up tonight with abdominal cramping and nausea, felt like she either going to vomit or have a bowel movement; went to the bathroom and while on the toilet had severe epigastric pain radiating up into her neck. No chest pain, shortness of breath, lower abdominal pain, or flank pain. Was given IV tylenol by EMS prior to arrival; on arrival reports her pain is entirely resolved. Vital signs reassuring on arrival, benign physical exam with no abdominal tenderness. No shortness of breath, tachycardia, or pleuritic pain to suggest pulmonary embolism; would not pursue further with dimer or CT imaging. Episode of reflux possible but given epigastric/substernal pain will evaluate for life threatening causes with cardiac workup, EKG, labs, CXR. Will evaluate for serious intraabodminal pathology with CT. No lower abdominal pain to suggest uterine/ovarian pathology. EKG NSR, appropriate intervals, no ST segment or T wave abnormalities to suggest occluisve SC. CXR independently reviewed, no focal pneumonia or pneumothorax on my view, agree with radiology read below. CT abd/pelvis independently reviewed, no obstruction or free fluid on my view, agree with radiology read below. Labs reviewed as below, CBC reassuring with no leukocytosis or anemia, CMP with no significant abnormalities, lipase normal, ALP normal, LFTS normal, serum preganncy negative, troponin negative x 2. Would not further pursue acute coronary syndrome at this time. UA with slight hematuria of unclear significance., overall presentations not particularly suggestive of kidney stone. Workup reassuring against serious intrabdominal pathology, gallbladder, pancreatitis, ACS. On reassessment patient remains well appearing, no further pain since arrival. Uncertain etiology of symptoms (favor episode of reflux), however with reassuring workup, well appearance, and no further pain appropriate for outpatient followup with PCP. Discharged home; discharge instructions and return precautions were reviwed with patient who verbalized understanding. All questions wree answered and he is in full agreement with the plan. Imaging Data Radiologic Study: Imaging: X-Ray Radiologist's impression: IMPRESSION: No active disease is seen in the chest. Radiologic Study #2: Imaging: CT Scan Radiologist's impression: IMPRESSION: 1. 2.2 cm x 1.3 cm peripherally enhancing left ovarian corpus luteum. Trace free fluid in the deep pelvis. 2. No acute bowel pathology demonstrated Lab Data Lab results reviewed: Yes I reviewed the patient's lab results. Labs: Laboratory Tests Range/Units 04/20/23 04/20/23 01:05 01:40 WBC (4.4-10.8) 10^3/uL 8.05 RBC (3.93-5.22) 10^6/uL 4.27 Hgb (11.2-15.7) g/dL 11.5 Hct (36.0-46.0) % 37.0 MCV (80-95) fL 87 MCH (27.0-33.0) pg 26.9 L MCHC (32.0-36.0) % 31.1 L RDW (11.7-14.6) % 14.3 Plt Count (130-400) 10^3/uL 298 MPV (8.0-11.0) fL 8.8 Immature Gran % 0.2 Neutrophils % 53.0 Lymphocytes % 36.3 Monocytes % 7.2 Eosinophils % 2.9 Basophils % 0.4 Nucleated RBC % (0.0-0.3) % 0.0 Absolute Neutrophils (1.2-6.7) 10^3/uL 4.27 Absolute Lymphocytes (1.2-3.4) 10^3/uL 2.92 Absolute Monocytes (0.1-0.8) 10^3/uL 0.58 Absolute Eosinophils (0.0-0.7) 10^3/uL 0.23 Absolute Basophils (0.0-0.2) 10^3/uL 0.03 Sodium (136-145) mmol/L 140 Potassium (3.5-5.1) mmol/L 3.8 Chloride (98-107) mmol/L 103 Carbon Dioxide (21.0-32.0) mmol/L 26.6 Anion Gap (3-11) mmol/L 10.4 BUN (7-18) mg/dL 18 Creatinine (0.55-1.02) mg/dL 0.7 Est GFR (CKD-EPI 2020) (mL/min/1.73m2) 112.75 Glucose (74-106) mg/dL 102 Calcium (8.5-10.1) mg/dL 8.8 Total Bilirubin (0.2-1.0) mg/dL 0.2 AST (15-37) U/L 34 ALT (14-59) U/L 35 Alkaline Phosphatase (46-116) U/L 90 Troponin I (< or =60) ng/L < 50 Total Protein (6.4-8.2) g/dL 7.5 Albumin (3.4-5.0) g/dL 3.5 Lipase (16-77) U/L 54 Beta HCG, Quant (1-3) mIU/mL < 1 L Urine Color (Yellow) Yellow Urine Clarity (Clear) Sl Cloudy Urine pH (5-8) 5.5 Ur Specific [place] (1.005-1.025) >= 1.030 H Urine Protein (Neg-Trace) mg/dL Negative Urine Ketones (Negative) mg/dL Negative Urine Blood (Negative) Trace-intact H Urine Nitrite (Negative) Negative Urine Bilirubin (Negative) Negative Urine Urobilinogen (Up to 0.2) mg/dL 0.2 Ur Leukocyte Esterase (Negative) Negative Urine RBC (0-2) HPF 3-5 H Urine WBC (0-5) HPF Negative Ur Epithelial Cells (Negative) HPF Many Urine Crystals (Negative) HPF Negative Urine Bacteria (Negative) HPF Few Urine Casts (Negative) LPF Negative Urine Mucus (Negative) Negative Ur Culture Indicated? No Urine Glucose (Negative) mg/dL Negative Quality:SDOH Health Related Social Needs: No Data to Display PFSH All Active Problems (Updated 04/20/23 @ 05:19 by Kristen Conrad MD) Chest pain (Acute) COVID-19 (Acute) Opiate withdrawal (Acute) Acute dyspnea (Acute) Use of nonprescription opiate drugs (Acute) Stimulant intoxication (Acute) GERD (gastroesophageal reflux disease) (Chronic) Depression (Chronic) Asthma (Chronic) Anxiety (Chronic) Surgical History S/P arthroscopic knee surgery S/P tubal ligation Social History Smoking/Tobacco Use Status: Current every day Tobacco Type: cigarettes Smoking risk assessment performed?: Yes Alcohol Intake: current Alcohol Intake frequency: 3 or more drinks per day Alcohol type: beer and hard liquor Drug use: Rarely Substance use type: former substance user Details: perscribed suboxone, current opiod sobriety. drinking 3-6 drinks a day, working with outpatient supports to start getting sober from alcohol. Do you feel safe at home: Yes Do you feel safe in your relationship?: Yes Female Reproductive History Menstrual control method: permanent sterilization
[2023-04-20 01:23] LABS: Abs Immature Grans 0.02 10^3/uL (0.0-0.06); Absolute Basophil Count 0.03 10^3/uL (0.0-0.2); Absolute Eosinophil Count 0.23 10^3/uL (0.0-0.7); Absolute Lymphocyte Count 2.92 10^3/uL (1.2-3.4); Absolute Monocyte Count 0.58 10^3/uL (0.1-0.8); Absolute Neutrophil Count 4.27 10^3/uL (1.2-6.7); Basophils % 0.4; Eosinophils % 2.9; HGB 11.5 g/dL (11.2-15.7); Immature Grans % 0.2; Lymphocytes % 36.3; MCH 26.9 pg (27.0-33.0); MCHC 31.1 % (32.0-36.0); MCV 87 fL (80-95); MPV 8.8 fL (8.0-11.0); Monocytes % 7.2; Platelet Count 298 10^3/uL (130-400); RBC 4.27 10^6/uL (3.93-5.22); RDW 14.3 % (11.7-14.6); RDW-SD 45.2 fL; WBC 8.05 10^3/uL (4.4-10.8)
[2023-04-20 01:40] LABS: ALT 35 U/L (14-59); AST 34 U/L (15-37); Albumin 3.5 g/dL (3.4-5.0); Alkaline Phosphatase 90 U/L (46-116); Anion Gap 10.4 mmol/L (3-11); BUN 18 mg/dL (7-18); Bilirubin, Total 0.2 mg/dL (0.2-1.0); CO2 26.6 mmol/L (21.0-32.0); CREATININE 0.7 mg/dL (0.55-1.02); Calcium 8.8 mg/dL (8.5-10.1); Chloride 103 mmol/L (98-107); Estimated GFR 112.75 (mL/min/1.73m2); Glucose 102 mg/dL (74-106); Potassium 3.8 mmol/L (3.5-5.1); Sodium 140 mmol/L (136-145); Total Protein 7.5 g/dL (6.4-8.2); Troponin I < 50 ng/L (< or =60)
[2023-04-20 01:47] LABS: HCG Quant, Pregnancy < 1 mIU/mL (1-3)
[2023-04-20 01:53] LABS: Lipase 54 U/L (16-77)
[2023-04-20 01:53] LABS: Bilirubin Negative (Negative); Blood Trace-intact (Negative); Clarity Sl Cloudy (Clear); Glucose Negative (Negative); Ketones Negative (Negative); Leukocyte Esterase Negative (Negative); Nitrite Negative (Negative); Specific Gravity >= 1.030 (1.005-1.025); Urobilinogen 0.2 mg/dL (Up to 0.2); pH 5.5 (5-8)
[2023-04-20 01:56] LABS: Bacteria Few HPF (Negative); C & S Indicated? No; Casts Negative LPF (Negative); Crystals Negative HPF (Negative); Epithelial Cells Many HPF (Negative); Mucus Negative (Negative); WBC Negative HPF (0-5)
--- NOTE | 2023-04-20 03:19 | DI.CT_ITS ---
Exam(s) CT ABDOMEN PELVIS W EXAM: CT ABDOMEN PELVIS W CLINICAL HISTORY: transient severe epigastric pain, nausea. not TTP. TECHNIQUE: Imaging Protocol: Axial computed tomography images with coronal and sagittal reformatted images were created and reviewed. CONTRAST MATERIAL: Intravenous: Omnipaque 350 contrast volume:98 mL Oral: No COMPARISON: CT CT RENAL COLIC WO from 02/22/[address] CHEST PE CTA from 05/29/2021 FINDINGS: ABDOMEN: Lung Bases: Normal where visualized. Liver: Normal density. No measurable mass. Portal, Superior Mesenteric, and Splenic Veins: Unremarkable. Gallbladder and Biliary Tract: No radiodense calculus or dilation. Pancreas: Normal density, no abnormal calcifications or inflammatory process. Spleen: Normal. Adrenals: No masses seen. Kidneys: Normal size, contour and axis. No radiodense stones or obstructive uropathy. No masses seen. Abdominal Aorta: Abdominal portion non-dilated. Mild atherosclerotic calcification is present. Bowel: No obstruction or bowel wall thickening. Appendix is unremarkable. Peritoneal Cavity: No ascites, collection or mesenteric inflammatory response. No free air. Lymph Nodes: Within normal limits. Bones: Within normal limits for the patient's age. Stable bone island in the right sacrum and right pubic bone. Soft Tissues: Unremarkable. PELVIS: Bladder: The urinary bladder is incompletely distended but grossly unremarkable. Reproductive Organs: Bilateral ovarian cysts are present. The largest measures 2.2 cm (series 5, ele ge 658). These are likely physiologic. Lymph Nodes: Within normal limits. Bones: Within normal limits for the patient's age. IMPRESSION: No acute abdominal or pelvic process. RADIATION DOSE DELIVERED: Total DLP DATA REPOSITORY: All CT scans at this facility are submitted to the National Radiology Data Registry (NRDR) Dose Index Registry (DIR) with the [employer] (ACR). RADIATION OPTIMIZATION: All CT scans at this facility use at least one of these dose optimization te chniques: automated exposure control; mA and/or kV adjustment per patient size (includes targeted exa ms where dose is matched to clinical indication); or iterative reconstruction.
--- NOTE | 2023-04-20 03:19 | DI.RAD_ITS ---
Exam(s) XR CHEST 2V PA LATERAL EXAM: XR CHEST 2V PA LATERAL CLINICAL HISTORY: chest pain TECHNIQUE: 2D digital imaging was performed of the chest. Two images were obtained. PA and lateral views were obtained. COMPARISON: CR XR PORTABLE CHEST AP from 08/10/2020 FINDINGS: MEDIASTINUM: Normal. HEART: Normal. PULMONARY VASCULATURE: Normal. LUNGS: Clear. PLEURAL SPACE: No pleural effusion or pneumothorax. BONE:Within normal limits for the patient's age. OTHER FINDINGS:Normal. IMPRESSION: No acute pulmonary findings. DATA REPOSITORY: RADIATION DOSE DELIVERED:
[2023-04-20] MEDS: Omnipaque 350 MG/ML 100 ML BTL IJ (03:22)
[2023-04-20] MEDS: Normal Saline Flush 10 ML SYR IVP (03:23)
[2023-04-20] MEDS: Normal Saline - Diluent 50 ML VIAL IJ (03:23)
--- NOTE | 2023-04-20 03:28 | DI.VRAD_ITS ---
PROCEDURE INFORMATION: Exam: CT Abdomen And Pelvis With Contrast Exam date and time: 04/20/2023 3:05 AM Age: 37 years old Clinical indication: Other: Transient severe epigastric pain, nausea. Not ttp. TECHNIQUE: Imaging protocol: Computed tomography of the abdomen and pelvis with contrast. Contrast material: OMNIPAQUE 350; Contrast volume: 100 ml; Contrast route: INTRAVENOUS (IV); COMPARISON: CT ABD PELVIS WO CONTRAST 10/02/2017 5:42 AM FINDINGS: Lungs: Lung bases clear. Liver: Normal appearing liver. Gallbladder and bile ducts: Normal appearing gallbladder. No calcified gallstones. No biliary dilatation. Pancreas: Normal appearing pancreas. Spleen: Normal appearing spleen. Adrenal glands: Normal appearing adrenal glands. Kidneys and ureters: Normal appearing kidneys. No hydronephrosis. Stomach and bowel: No oral contrast. Stomach partially decompressed. No small bowel dilatation to suggest obstruction. Normal-appearing colon. No evidence of diverticulitis or colitis. Appendix: Normal retrocecal appendix. Intraperitoneal space: Trace fluid in the deep pelvis. No free air. Vasculature: Normal caliber abdominal aorta. Lymph nodes: No pathologically enlarged mesenteric, retroperitoneal, or pelvic sidewall lymph nodes. Urinary bladder: Urinary bladder partially collapsed but grossly unremarkable, as seen. Reproductive: Retroverted uterus, normal in size. Ovaries partially obscured but normal in size. 2.2 cm x 1.3 cm peripherally enhancing left ovarian corpus luteum, image 70 of series 4. Trace adjacent fluid. 1.2 cm dominant right ovarian follicle, image 67 of series 4. Bones/joints: No acute fracture seen among the bones of the abdomen or pelvis. Small Schmorl's nodes and small anterior osteophytes in the lower thoracic spine Soft tissues: Tiny fat-containing ventral hernia at the umbilicus, doubtful clinical significance. IMPRESSION: 1. 2.2 cm x 1.3 cm peripherally enhancing left ovarian corpus luteum. Trace free fluid in the deep pelvis. 2. No acute bowel pathology demonstrated. Dictated and Authenticated by: Hussein Woo MD. Ordering:MADHAVI Peterson MD
--- NOTE | 2023-04-20 03:32 | DI.VRAD_ITS ---
PROCEDURE INFORMATION: Exam: XR Chest Exam date and time: 04/20/2023 3:08 AM Age: 37 years old Clinical indication: Other: Chest pain TECHNIQUE: Imaging protocol: Radiologic exam of the chest. Views: 2 views. COMPARISON: CT CHEST PE CTA 05/29/2021 11:28 AM FINDINGS: Lungs: No pulmonary consolidation is seen. Pleural spaces: No pleural effusion or pneumothorax is demonstrated. Heart/Mediastinum: The heart appears normal in size. Bones/joints: The visualized bony structures appear grossly intact, as seen. IMPRESSION: No active disease is seen in the chest. Dictated and Authenticated by: Hussein Woo MD. Ordering:MADHAVI Peterson MD
[2023-04-20 05:09] LABS: Troponin I < 50 ng/L (< or =60)
== END 2023-04-20 05:29 | disposition home or self-care (01) ==
LOC: ER 05:35
PROVIDERS: Emergency Provider Student in an Organized Health Care Education/Training Program; PCP Family Medicine
DX: R10.13 Epigastric pain (principal); R11.0 Nausea; R07.9 Chest pain, unspecified; F17.210 Nicotine dependence, cigarettes, uncomplicated
CPT/HCPCS: 80053; 83690; 93005; 99285; 71046; 74177; 81003; 81015; 84484; 84702; 85025; 93010; 99284; J3490

== ENCOUNTER 2023-04-26 00:57 | Emergency (ER) | payer MEDICAID, SELFPAY ==
[2023-04-26] VITALS (44 sets, daily range): BP systolic 104–149; BP diastolic 42–67; PULSE 62–82; RESP 13–22; TEMP 36.8–37.7; O2SAT 91–98
--- NOTE | 2023-04-26 01:15 | RT.EKG_ITS ---
APPROVED REPORT Exam: Resting ECG Reason for Exam: clonidine OD Patient Location: E HR:72 bpm ECG Measurements Heart Rate 72 AXIS NJ 172 P 65 QRSd 78 QRS 46 QT 438 T 40 QTc 479 Conclusion Sinus rhythm...normal P axis, V-rate 60- 99 Non-specific repolarization abnormalities in several leads without pattern injury or overt ischemia
--- NOTE | 2023-04-26 01:44 | ED.GENADUL_ITS ---
Discharge Plan Disposition Patient Disposition: Home Condition: Good Discharge Details Chief Complaint: OD/Poison Clinical Impression: Stress reaction causing mixed disturbance of emotion and conduct, Intentional overdose of clonidine Primary Care Provider: Michell Wooten ED Provider: Andrew Lyman Home Meds and New Rx's Prescriptions: No Action clonidine HCl 0.1 mg tablet 0.3 mg PO TID PRN Patient Comments: TAKE ONE TABLET BY MOUTH TWICE A DAY buprenorphine-naloxone [Suboxone] 4-1 mg film 1 film sublingual DAILY Patient Comments: DISSOLVE 1 FILM UNDER THE TONGUE ONCE DAILY FOR 7 DAYS lisinopril 10 mg tablet 10 mg PO DAILY albuterol sulfate [Ventolin HFA] 90 mcg/actuation HFA aerosol inhaler 2 puff INHALATION PRN PRN Patient Comments: INHALE 2 PUFFS BY MOUTH EVERY 4-6 HOURS NEEDED escitalopram oxalate 5 mg tablet 5 mg PO DAILY Patient Comments: TAKE ONE TABLET BY MOUTH EVERY MORNING Discharge Instructions Instructions: Anxiety (ED) Additional Instructions: Continue current medications as previously directed. Follow-up with the safety plan as directed by the [facility] services provider. You can always return to the emergency room for any new concerns or sudden changes in your health which you feel require emergency medical attention. Discharge Data Discharge Physician: Andrew Lyman [facility] General Date/Time Provider Initiated Documentation: 04/26/23 01:20 . [facility] Narrative: The patient is a 37-year-old female, with a past medical history of hypertension, depression, status post tubal ligation, who presents to the emergency department this evening after taking a overdose of her prescribed 0.1 mg clonidine tablets. Initially the patient told the triage nurse that she took 10 tablets. She then initially told me she had taken 12 tablets, but then equivocated and said that it may have been more. The patient ingested these tablets around 11 PM (2.5 hours ago). The patient reports that she feels mildly nauseated and sleepy at this point in time. When asked if she was intending to harm herself the patient initially told the triage nurse that she was not suicidal and that what she did was stupid, but she tells me that she is not sure anymore when I asked the same question. She did admit to recent life stressors causing her to feel more distress. Related Data Home Medications Medication Instructions Recorded Confirmed buprenorphine 4 mg-naloxone 1 mg 1 film sublingual DAILY 05/04/22 04/26/23 sublingual film (Suboxone) clonidine HCl 0.1 mg tablet 0.3 mg PO TID PRN 05/04/22 04/26/23 albuterol sulfate 90 mcg/actuation 2 puff inhalation PRN PRN 09/24/22 04/26/23 aerosol inhaler (Ventolin HFA) escitalopram oxalate 5 mg tablet 5 mg PO DAILY 09/24/22 04/26/23 lisinopril 10 mg tablet 10 mg PO DAILY 09/24/22 04/26/23 Allergies Allergy/AdvReac Type Severity Reaction Status Date / Time Sulfa (Sulfonamide Allergy Severe Hives Unverified 04/26/23 01:16 Antibiotics) General Stated Complaint: OD/Poison YUN: 2 Exam Const Other: The patient is somnolent but awake on my arrival to the room. She is interactive with examination and provides history. Resp Other: The auscultated breath sounds are clear bilaterally with good air exchange. There is no increased or decreased work of breathing. Cardio Other: There is a regular rate and rhythm without any murmurs, rubs, or gallops. GI Other: The abdomen is soft, nontender, and has normal bowel sounds. Skin Other: [place], warm, and dry. Neuro Other: The patient has no focal motor or sensory deficits. The visualized portions of the cranial nerves are grossly intact. The patient was not ambulated but did sit up in bed and did not appear to have any truncal ataxia or cerebellar dysfunction. Psych Other: The patient admits to recent life stressors and depression surrounding these. The patient is equivocal about whether or not she was intending to harm herself with this ingestion. Course Vital Signs Vital signs: Vital Signs Temperature 36.8 C 04/26/23 01:05 Pulse 82 04/26/23 01:05 Respiratory Rate 16 04/26/23 01:05 Blood Pressure 126/67 04/26/23 01:05 Pulse Oximetry 98 04/26/23 01:05 Temperature 36.8 C 04/26/23 01:05 Temperature Source Temporal Artery Scan 04/26/23 01:05 Pulse 82 04/26/23 01:05 Respiratory Rate 16 04/26/23 01:05 Respiratory Effort Normal 04/26/23 01:09 Blood Pressure 126/67 04/26/23 01:05 Pulse Oximetry 98 04/26/23 01:05 Oxygen Delivery Method Room Air 04/26/23 01:05 Oxygen Flow Rate 0 04/26/23 01:05 Medical Decision Making Medical Records Medical records narrative: The patient was seen and examined. She is in no distress and has normal vital signs at this time in the emergency department. I discussed the case with poison control, who recommended the patient be observed for a total of 6 hours to ensure that she does not develop any altered mental status, profound hypotension, or profound bradycardia that would require supportive symptomatic care. The patient is asymptomatic beyond somnolence at the 6-hour jailyn, the patient can be referred to behavioral health for crisis team evaluation. The patient will be observed over the arc of the shift in the emergency room and admitted if she requires any aggressive treatment for her symptoms, but otherwise will be cleared for behavioral health referral at 6 AM. The patient was clinically stable over the arc of the shift and was observed for 6 hours at the request of poison control. The patient manifested no significant symptoms of a clonidine overdose. The patient was evaluated by Valeria Iyer from [facility], who does not feel the patient represents an imminent risk to herself at this time. The patient has a safety plan in [id number] where she will follow-up with her therapist in the next few days. She can reach out to the [facility] for any acute crisis problems that develop in the interval. Plan is for discharge home this morning. Quality:SDOH Health Related Social Needs: No Data to Display PFSH All Active Problems (Updated 04/26/23 @ 07:04 by Andrew Lyman MD) Intentional overdose of clonidine (Acute) Stress reaction causing mixed disturbance of emotion and conduct (Acute) Chest pain (Acute) COVID-19 (Acute) Opiate withdrawal (Acute) Acute dyspnea (Acute) Use of nonprescription opiate drugs (Acute) Stimulant intoxication (Acute) GERD (gastroesophageal reflux disease) (Chronic) Depression (Chronic) Asthma (Chronic) Anxiety (Chronic) Surgical History S/P arthroscopic knee surgery S/P tubal ligation Social History Smoking/Tobacco Use Status: Current every day Tobacco Type: cigarettes Smoking risk assessment performed?: Yes Alcohol Intake: current Alcohol Intake frequency: 3 or more drinks per day Alcohol type: beer and hard liquor Drug use: Rarely Substance use type: former substance user Details: perscribed suboxone, current opiod sobriety. drinking 3-6 drinks a day, working with outpatient supports to start getting sober from alcohol. Do you feel safe at home: Yes Do you feel safe in your relationship?: Yes Female Reproductive History Menstrual control method: permanent sterilization
[2023-04-26] MEDS: Normal Saline 1,000 ML 1000 ML IV (01:52)
[2023-04-26] MEDS: Ondansetron 4 MG/2 ML VIAL IVP (01:53)
[2023-04-26 01:55] LABS: Abs Immature Grans 0.01 10^3/uL (0.0-0.06); Absolute Basophil Count 0.04 10^3/uL (0.0-0.2); Absolute Eosinophil Count 0.25 10^3/uL (0.0-0.7); Absolute Lymphocyte Count 2.91 10^3/uL (1.2-3.4); Absolute Monocyte Count 0.53 10^3/uL (0.1-0.8); Absolute Neutrophil Count 4.75 10^3/uL (1.2-6.7); Basophils % 0.5; Eosinophils % 2.9; HCT 35.3 % (36.0-46.0); Immature Grans % 0.1; Lymphocytes % 34.3; MCH 27.5 pg (27.0-33.0); MCHC 31.2 % (32.0-36.0); MCV 88 fL (80-95); MPV 8.8 fL (8.0-11.0); Monocytes % 6.2; Platelet Count 291 10^3/uL (130-400); RDW 14.2 % (11.7-14.6); RDW-SD 45.8 fL; WBC 8.49 10^3/uL (4.4-10.8)
[2023-04-26 02:02] LABS: Bilirubin Negative (Negative); Blood Negative (Negative); Clarity Clear (Clear); Glucose Negative (Negative); Ketones Negative (Negative); Leukocyte Esterase Negative (Negative); Nitrite Negative (Negative); Specific Gravity <= 1.005 (1.005-1.025); Urobilinogen 0.2 mg/dL (Up to 0.2); pH 5.5 (5-8)
[2023-04-26 02:16] LABS: Salicylate 4.2 mg/dL (<2.8)
[2023-04-26 02:17] LABS: ALT 24 U/L (14-59); AST 13 U/L (15-37); Albumin 3.4 g/dL (3.4-5.0); Alkaline Phosphatase 84 U/L (46-116); Anion Gap 10.6 mmol/L (3-11); BUN 23 mg/dL (7-18); Bilirubin, Total 0.1 mg/dL (0.2-1.0); CO2 25.4 mmol/L (21.0-32.0); CREATININE 0.9 mg/dL (0.55-1.02); Calcium 7.9 mg/dL (8.5-10.1); Chloride 105 mmol/L (98-107); ETHANOL BLOOD 99.3 mg/dL (<10); Glucose 128 mg/dL (74-106); Potassium 3.8 mmol/L (3.5-5.1); Sodium 141 mmol/L (136-145)
[2023-04-26 02:29] LABS: Acetaminophen < 2 ug/mL (10-30)
[2023-04-26 02:39] LABS: *AMPHETAMINES SCREEN URINE Negative (Negative); *BARBITURATES SCREEN URINE Negative (Negative); *BENZODIAZEPINES SCREEN URINE Negative (Negative); Cannabinoids THC Negative (Negative); Cocaine Screen,Urine Negative (Negative); METHADONE URINE SCREEN Negative (Negative); OPIATES URINE SCREEN Negative (Negative)
[2023-04-26 02:41] LABS: Tricyclic Antidepressants Negative (Negative)
--- NOTE | 2023-04-26 11:32 | PDOC.MHCN ---
Date of service: 04/26/23 Time of Service: 11:32 PHQ-9 Over the last 2 weeks, how often have you been bothered by any of the following problems? 1. Little interest or pleasure in doing things: several days 2. Feeling down, depressed, or hopeless: several days 3. Trouble falling or staying asleep, or sleeping too much: nearly every day 4. Feeling tired or having little energy: nearly every day 5. Poor appetite or overeating: not at all 6. Feeling bad about yourself - or that you are a failure or have let yourself and your family down: several days 7. Trouble concentrating on things, such as reading the newspaper or watching television: not at all 8. Moving or speaking so slowly that other people could have noticed? - Or the opposite - being so fidgety or restless that you have been moving around a lot more than usual: several days 9. Thoughts that you would be better off or of hurting yourself in some way: not at all Total score: 10 Source: Developed by Drs. Lux Arora, Lise Villeda, Ortiz Santiago and colleagues, with an educational leana from [employer]. Suicide Severity Rate CSSRS Have you wished you were or wished you could go to sleep and not wake up?: No Have you actually had any thoughts of killing yourself?: No CSSRS3 Have you ever done anything, started to do anything or prepared to do anything to end your life?: No Screening Score Total Score: 0 Screening: Negative Mental Health Emergency Note Release [facility] release signed:: Yes Reason for Visit Provider Andrew Lyman requested an evaluation of the client this am after she took an intentional overdose of her Clonidine as she wanted to sleep. This assessment is completed via [facility]. The client is open to the AO program at [facility] and was last seen in March and missed her more recent appointment noting because she was in court on a truancy charge. She denied ever being hospitalized. In the last 2 weeks has the pt presented for ES prior to today?: Unknown Client Information Client is: Substance use Well Housed: Yes Non Suicidal Self Injury Current: No History: No Safety Risk/Harm to Self or Others Current Ideation to Harm Self or Others: No Risk: Does risk to harm exist?: No Risk: Low Risk Duty to warn indicated: No Asssessment/Mental Status Appearance: Disheveled Attitude: Cooperative Behavior: Other (Sleepy) Speech: Normal Affect: Normal Mood: Other (Alright) Thought process: Goal directed Hallucinations: No Delusions: No Attention: Unremarkable Perception: Not impaired Orientation: Fully orientated Memory: Intact Insight: Good Judgement: Fair Neurovegetative Symptoms Sleep: Decrease Appetitie: No change Interests: Increase Energy: No change Libido: Not applicable Substance Use: ETOH dependence Do you use nicotine?: Yes Have you used substances in the last 7 days?: yes, Is cutting down. Additional Issues: Assaultive/Threatening Behavior: No Medical Concerns: No Client engaged in active self harm w/weapon: No Threatening to run away: No Child reported abuse/neglect: No Voluntarily presenting for services: Yes Domestic violence is a concern: No Extreme Psychosis or extreme behavior is present: No Impression The client is a 37 year old, single, female who lives with her parents. All underrepresented categories were honored during this assessment. She engaged in all screening tools to include the CSSRS. This clinician is not yet CAM's trained. The client engaged in a safety plan which is in her chart. She at this time does not meet criteria for inpatient treatment and is not interested in any either. The client presents sitting on her bed. She is very sleepy and observed nodding off occasionally. She admits to taking too many pills but denied that this was with the intent to she only wanted to get some sleep. She if future oriented as she talks about wanting to go to work later today. She is polite and engaged in the discussion and would like to go home. Resources [facility] reviewed and given:: [id number] Plan/Disposition Recommended Disposition: [facility] Services [facility] Services: Therapy. Plan: Safety plan completed and the client will follow up next week to reschedule her appointment. Person reported agreement to plan: Yes Reports/communication Outcome discussed with: ED/Personnel
== END 2023-04-26 07:28 | disposition home or self-care (01) ==
PROVIDERS: Emergency Provider Emergency Medicine Emergency Medical Services; PCP Nurse Practitioner Family
DX: T46.5X2A Poisoning by other antihypertensive drugs, intentional self-harm, initial encounter (principal); R40.0 Somnolence; F32.A Depression, unspecified; F43.89 Other reactions to severe stress; I10 Essential (primary) hypertension; F17.210 Nicotine dependence, cigarettes, uncomplicated; Y92.018 Other place in single-family (private) house as the place of occurrence of the external cause; Y90.4 Blood alcohol level of 80-99 mg/100 ml
CPT/HCPCS: 00123; 80053; 80307; 93005; 96127; 96361; 96374; 99284; 80320; 80329; 81003; 85025; 93010; J2405

== ENCOUNTER 2023-09-23 12:38 | Emergency (ER) | payer SELFPAY ==
[2023-09-23 12:40] VITALS: BP 161/99; PULSE 90; RESP 18; TEMP 36.8; O2SAT 96
--- NOTE | 2023-09-23 13:18 | ED.GENADUL_ITS ---
Discharge Plan Disposition Patient Disposition: Home Condition: Stable Discharge Details Clinical Impression: Otitis of left ear Primary Care Provider: Unknown,Unknown ED Provider: Armin Barrera Home Meds and New Rx's Prescriptions: New ciprofloxacin-dexamethasone 0.3-0.1 % drops,suspension 4 drp otic (ear) BID 7 Days Qty: 7.5 0RF amoxicillin-pot clavulanate 875-125 mg tablet 1 tab PO BID 7 Days Qty: 14 0RF Continued diclofenac potassium 50 mg tablet 50 mg PO BID PRN (Reason: pain) Qty: 20 0RF Rx Instructions: take with food, do not take with other anti-inflammatories. clonidine HCl 0.1 mg tablet 0.3 mg PO TID PRN Patient Comments: TAKE ONE TABLET BY MOUTH TWICE A DAY buprenorphine-naloxone [Suboxone] 4-1 mg film 1 film sublingual DAILY Patient Comments: DISSOLVE 1 FILM UNDER THE TONGUE ONCE DAILY FOR 7 DAYS lisinopril 10 mg tablet 10 mg PO DAILY albuterol sulfate [Ventolin HFA] 90 mcg/actuation HFA aerosol inhaler 2 puff INHALATION PRN PRN Patient Comments: INHALE 2 PUFFS BY MOUTH EVERY 4-6 HOURS NEEDED escitalopram oxalate 5 mg tablet 5 mg PO DAILY Patient Comments: TAKE ONE TABLET BY MOUTH EVERY MORNING Discharge Instructions Instructions: Amoxicillin and Clavulanate, Ciprofloxacin and Dexamethasone, Ear Infection ED Additional Instructions: You were seen in the emergency department for your left ear infection. You have ear canal swelling likely indicating an external ear infection, we are covering you with ciprofloxacin and dexamethasone eardrops to use twice per day for 7 days as well as Augmentin twice per day for 7 days of oral antibiotics. Please use therapeutic dosing of Tylenol (acetamenophen) & Advil (ibuprofen) in an alternating fashion as follows: Take 1000mg of Tylenol every 6 hours without missing doses- that is 4 times per day. Senior [facility] in between the Tylenol dosings, take 400-600mg of Advil also on a 6 hour schedule, that is also 4 times per day. The daily maximum dosing of Tylenol is 4000mg, and the daily maximum dosing of Advil is 2400mg. This is safe to do for weeks. Please note that some common cold medications & prescription pain medications may contain acetamenophen and you need to read OTC drug labels and factor that in to maximum daily dosings. If you fail to improve by day 3 of antibiotics I think you should be reevaluated due to your ear canal swelling for other possible pathology like cholesteatoma or other acute problems, if you continue to have posterior tenderness behind her ear you may need a CT to evaluate for mastoiditis Discharge Data Discharge Date/Time-TO BE ENTERED AT DEPARTURE: 09/23/23 13:38 HPI General Date/Time Provider Initiated Documentation: 09/23/23 12:53 . HPI Narrative: 37 year-old female presents to ED today by POV/ambulating with a chief complaint of L ear pain, some discharge, with onset two days ago. Quality described as left ear pain, pain with any movement of the outer portion of the ear, mild pain behind the ear, no radiation to hide fever, cough or sore throat, shortness of breath, chest pain, facial paralysis, lesions to skin. Severity is described as moderate to severe. Palliating factors include nothing specific. Provoking factors include nothing specific. Patient not anticoagulated. Related Data Home Medications ?Medication ?Instructions ?Recorded ?Confirmed buprenorphine 4 mg-naloxone 1 mg 1 film sublingual DAILY 05/04/22 09/23/23 sublingual film (Suboxone) clonidine HCl 0.1 mg tablet 0.3 mg PO TID PRN 05/04/22 09/23/23 albuterol sulfate 90 mcg/actuation 2 puff inhalation PRN PRN 09/24/22 09/23/23 aerosol inhaler (Ventolin HFA) escitalopram oxalate 5 mg tablet 5 mg PO DAILY 09/24/22 09/23/23 lisinopril 10 mg tablet 10 mg PO DAILY 09/24/22 09/23/23 diclofenac potassium 50 mg tablet 50 mg PO BID PRN pain #20 tabs 05/30/23 09/23/23 amoxicillin 875 mg-potassium 1 tab PO BID 7 days #14 tabs 09/23/23 clavulanate 125 mg tablet ciprofloxacin 0.3 %-dexamethasone 4 drp otic (ear) BID 7 days #7.5 mL 09/23/23 0.1 % ear drops,suspension Previous Rx's ?Medication ?Instructions ?Recorded diclofenac potassium 50 mg tablet 50 mg PO BID PRN pain #20 tabs 05/30/23 amoxicillin 875 mg-potassium 1 tab PO BID 7 days #14 tabs 09/23/23 clavulanate 125 mg tablet ciprofloxacin 0.3 %-dexamethasone 4 drp otic (ear) BID 7 days #7.5 mL 09/23/23 0.1 % ear drops,suspension Allergies Allergy/AdvReac Type Severity Reaction Status Date / Time Sulfa (Sulfonamide Allergy Severe Hives Unverified 09/23/23 12:44 Antibiotics) General Stated Complaint: EarProblem YUN: 4 Review of Systems All systems reviewed & are unremarkable except as noted in HPI and below Exam Narrative Exam Narrative: GENERAL APPEARANCE: Well-nourished, non-toxic, awake and alert, atraumatic, no acute distress. SKIN: Warm, pink, dry, intact, without rashes/lesions/ulcerations. HEAD: Normocephalic, atraumatic, normal hair distribution for gender/age. EYES: Normal conjunctiva, no exudates on lids/lashes. ENT: Nares patent, no circumoral cyanosis, no facial swelling, R TM within normal limits, left TM is erythematous and bulging, there is some swelling and displacement of the canal posterior to anterior without cottage cheese discharge, mild mastoid tenderness without erythema warmth or bogginess NECK: Supple, trachea midline, painless cervical ROM. LUNGS/CHEST: Non-labored respirations, normal A/P diameter, symmetrical expansion, no chest wall deformity HEART (CV/PV): No peripheral edema, no JVD. ABDOMEN: Soft, non-distended, no guarding. MSK: Normal ROM, no swelling/deformity to bilateral UEs or LEs, moving all extremities without weakness, no cyanosis, spine midline without tenderness, normal curvature. NEURO: Mental Status AAOx4 - alert to person, place, time, events No facial droop, no forehead involvement. Motor: No focal weakness - strength 5/5 in bilateral UEs and LEs, proximal and distal, symmetric. Sensory: sensation intact to light touch globally. Gait normal: patient ambulated without ataxia into ED room. PSYCH: euthymic, cooperative, pleasant, appropriate speech Course Vital Signs Vital signs: Vital Signs Temperature 36.8 C 09/23/23 12:40 Pulse 90 09/23/23 12:40 Respiratory Rate 18 09/23/23 12:40 Blood Pressure 161/99 H 09/23/23 12:40 Pulse Oximetry 96 09/23/23 12:40 Temperature 36.8 C 09/23/23 12:40 Pulse 90 09/23/23 12:40 Respiratory Rate 18 09/23/23 12:40 Respiratory Effort Normal 09/23/23 12:42 Blood Pressure 161/99 H 09/23/23 12:40 Pulse Oximetry 96 09/23/23 12:40 Medical Decision Making This dictation utilizes [id number] dictation software and may contain unedited grammatical errors. 37 year-old female presents to ED today by POV/ambulating with a chief complaint of L ear pain, some discharge, with onset two days ago. Quality described as left ear pain, pain with any movement of the outer portion of the ear, mild pain behind the ear, no radiation to hide fever, cough or sore throat, shortness of breath, chest pain, facial paralysis, lesions to skin. Severity is described as moderate to severe. Palliating factors include nothing specific. Provoking factors include nothing specific. Patients' medical history: Noncontributory. Family and social history: Noncontributory. Pertinent exam findings / vital signs include R TM within normal limits, left TM is erythematous and bulging, there is some swelling and displacement of the canal posterior to anterior without cottage cheese discharge, mild mastoid tenderness without erythema warmth or bogginess. Differential / pathologies of concern include otitis externa, otitis media, cholesteatoma, less likely schwannoma, consider mastoiditis if fails to improve or worsens. Diagnostic studies of: -none. Interventions of: -Rx for ciprodex drops & Augmentin coverage for empiric AOM. ED Course/Assessment/Plan: 37-year-old female presents with left ear pain for the past 2 days, has significant ear canal swelling and endorses some discharge, suspicious for otitis externa and will cover with Ciprodex eardrops. Due to the severity I am also going to cover empiric AOM, patient has mild tenderness behind the ear but I think this is a failure to localize pain accurately she has no erythema or bogginess or warmth to touch, I did discuss this risk factor with her and trial of antibiotics for a few days with strict return criteria for any worsening especially with pain or warmth or bogginess behind the ear. Findings not consistent with mastoiditis, loss of hearing, perforated TM. Disposition of Otitis of Left Ear. Patient verbalized understanding of the plan and return to ED criteria and engaged in shared decision making. Medical Records Medical records reviewed: Yes I reviewed the patient's medical records. Quality:SDOH Health Related Social Needs: No Data to Display PFSH All Active Problems (Updated 09/23/23 @ 13:25 by MAIKEL Roth) Otitis of left ear (Acute) COVID-19 (Acute) Opiate withdrawal (Acute) Acute dyspnea (Acute) Use of nonprescription opiate drugs (Acute) Stimulant intoxication (Acute) GERD (gastroesophageal reflux disease) (Chronic) Depression (Chronic) Asthma (Chronic) Anxiety (Chronic) Surgical History S/P tubal ligation S/P arthroscopic knee surgery Social History Smoking/Tobacco Use Status: Current every day Tobacco Type: cigarettes Smoking risk assessment performed?: Yes Alcohol Intake: current Alcohol Intake frequency: 3 or more drinks per day Alcohol type: beer and hard liquor Drug use: Rarely Substance use type: former substance user Housing: house Do you feel safe at home: Yes Do you feel safe in your relationship?: Yes Female Reproductive History Menstrual control method: permanent sterilization PAWSS Have you Been Recently Intoxicated or Drunk Within the Last 30 days?: No Have you Ever Experienced Previous Episodes of Alcohol Withdrawal?: No Have you ever Experienced Withdrawal Seizures?: No Have you ever Experienced Delirium Tremens(DT)s?: No Have you ever undergone Alcohol Rehabilitation Treatment (i.e, inpt ot outpatient treatment programs)?: No Have you ever Experienced Blackouts?: No Have you ever Combined Alcohol with other Downers within the last 90 days?: No Have you ever Combined Alcohol with any other Substance of Abuse during the last 90 days?: No Positive Blood Alcohol level on Presentation? [PCS.BAL]: No Evidence of Increased Autonomic Activity (i.e. HR>120, tremor, sweating, agitation, nausea)?: No Result: 0
== END 2023-09-23 13:38 | disposition home or self-care (01) ==
PROVIDERS: Emergency Provider Physician Assistant
DX: H66.92 Otitis media, unspecified, left ear (principal)
CPT/HCPCS: 99283

== ENCOUNTER 2024-03-20 05:15 | Emergency (ER) | payer SELFPAY ==
[2024-03-20 05:17] VITALS: BP 203/106; PULSE 92; RESP 18; TEMP 36.9; O2SAT 97
--- OUTSIDE RECORDS SUMMARY | 2024-03-20 05:19 | XMS_ITS | Encounter Summary ---
Author Organization [facility] Address [address] [place] [address] Care Team Providers Care Client Services Assistant Name Role Phone Abdoulaye Maier MD Primary Care Provider Encounter Details Date Type Department Care Team (Late st Contact Info) Description 01/18/2014 Results Only [facility] - [facility] ([facility]) [address], [place] [id number] Geena Siddiqi, [address] [place] [address] Social History Tobacco Use Types Packs/Day Years Used Date Smoking Tobacco: Never Assessed Comments Unknown Sex and Gender Information Value Date Recorded Sex Assigned at Not on file Legal Sex Female 18:29 EST Gender Identity Not on file Sexual Orientation Not on file documented as of this encounter Plan of Treatment Not on file documented as of this encounter Procedures Procedure Name Priority Date/Time Associated Diagnosis Comments PAP TEST- RESULT ONLY Routine 01/18/2014 0:00 EST documented in this encounter Results * PAP TEST- RESULT ONLY (01/18/2014 0:00 EST) Pathology Report: CYTOPATHOLOGY REPORT Reports generated via electronic interface contain original data; however they are lacking the format of the original report. Caution should be taken when reading/interpreti ng unformatted reports. Name: ? ROXANE GODDARD ? Accession #: ? [id number] ? : ? 1985 (Age: 28) ??F ?Collect Date: ? 01/18/2014 ? Location: ? [facility] ? Receive Date: ? 01/20/2014 ? Provider: GEENA SIDDIQI NP Copy to: ? Final Report SPECIMEN ADEQUACY ? Satisfactory for Evaluation - transformation zone component present GENERAL CATEGORIZATION ? Negative for Intraepithelial Lesion or Malignancy INTERPRETATION ? Reactive cellular changes associated with inflammation present (includes repair). Last Menstrual Period: 01/05/14 Hormonal/Contracep tive status: Tubal ligation Specimen/Source: ??Pap Test, Cervix/Endocervix, ThinPrep Imaging System with manual evaluation Document reviewed and electronically signed by: ? BRITTNEY RODRIGUEZ MD ? Report ??Date: 01/27/2014 11:04 HPV with Pap Test ? Date Ordered: ? 01/26/2014 ? Status: ?? Signed Out ?Date Complete: ? 01/31/2014 ? By: ??System Interface ? Date Reported: ? 01/31/2014 ? Interpretation RESULT: Negative for HPV. No E6 or E7 mRNA is detected from HPV types 16,18,31,33,35, 39,45,51,52,56,58, 59,66, and 68 by deaf and hard of hearing teacher mediated amplification. Comments Document reviewed and electronically signed by: ? System Interface ? Report date: 01/31/2014 By the signature above, the attending physician certifies that he/she has personally conducted a gross and/or microscopic examination of the described specimens and rendered or confirmed the above diagnosis. End of Report [facility] 01/18/2014 01/20/2014 us Geena Siddiqi NP PATHOLOGY ORDERABLES Final Res ult Performing Organization Address City/State/[facility] Co de Phone Number [facility] [address] [place] [address] documented in this encounter Visit Diagnoses Not on filedocumented in this encounter Care Teams Client Services Assistant Relationship Specialty Start Date End Date Abdoulaye Maier MD [address] [place] [phone] PCP - General 01/23/09 12/10/15 documented as of this encounter
--- OUTSIDE RECORDS SUMMARY | 2024-03-20 05:19 | XMS_ITS | Encounter Summary ---
Author Organization [facility] Address [address] [place] [address] Care Team Providers Care Hand Molder Name Role Phone Abdoulaye Maier MD Primary Care Provider [phone] Encounter Details Date Type Department Care Team (Late st Contact Info) Description 12/06/2015 Results Only [facility] [phone] Manny Pierce MD [address] [place] [address] Social History Tobacco Use Types Packs/Day Years [...] Procedure Name Priority Date/Time Associated Diagnosis Comments SURGICAL PATHOLOGY Routine 12/06/2015 14 :14 EDT documented in this encounter Results * SURGICAL PATHOLOGY (12/06/2015 14:14 EDT) Pathology Report: SURGICAL PATHOLOGY REPORT Reports generated via electronic interface contain original data; however they are lacking the format of the original report. Caution should be taken when reading/interpret ing unformatted reports. Name: ? ROXANE GODDARD ? Accession #: ? [id number] ? : ? 1985 (Age: 29) ??F ? Collect Date: ? 12/06/2015 ? Location: ? [facility] ? Receive Date: ? 12/07/2015 ? Provider: MANNY PIERCE MD Copy to: RONALD OLSEN MD ? Final Pathologic Diagnosis: SKIN OF LABIUM MAJORIS, LEFT, EXCISIONAL BIOPSY: - Seborrheic keratosis, pigmented. - Seborrheic keratosis does not extend to margins of excision specimen. Microscopic Description: The stratum corneum is thickened by compact and basketweave orthokeratosis with formation of horn pseudocysts. ??The epidermis is acanthotic with formation of broad and anastomosing trabeculae. ??The trabeculae are composed of basaloid keratinocytes with round uniform nuclei. ??The keratinocytes have a variable amount of melanin pigment. ??(Dr. Fitzgerald)/[facility] Document reviewed and electronically signed by: JUAN JOSE FITZGERALD MD Report ??Date: 12/08/2015 13:19 By the signature above, the attending physician certifies that he/she has personally conducted a gross and/or microscopic examination of the described specimens and rendered or confirmed the above diagnosis. Specimen(s) Received: Excision of lesion L labium majoris Clinical History: Growing, hyperpigmented tingly, abnormal lesion Gross Description: ? Received in formalin labelled with proper patient identification (initials M, S) and labial lesion is an ovoid skin, 0.8 x 0.6 cm and excised to a depth of 0.3 cm. The skin surface shows an eccentrically located raised firm montoya-brown lesion, 0.5 x 0.4 x 0.2 cm. The margin is inked. Trisected and entirely submitted in 1. MAIKEL Zimmer (ASCP) 12/07/2015 4:12 PM End of Report [facility] 12/06/2015 14:1 4 EDT 12/07/2015 14:14 EDT us Manny Pierce MD PATHOLOGY ORDERABLES Final Resu lt [facility] [address] [place] [address] documented in this encounter Visit Diagnoses Not on filedocumented in this encounter Care Teams Hand Molder Relationship Specialty Start Date End Date Abdoulaye Maier MD [address] [place] [phone] PCP - General 01/23/09 12/10/15 documented as of this encounter
--- OUTSIDE RECORDS SUMMARY | 2024-03-20 05:19 | XMS_ITS | Encounter Summary ---
Author Organization [facility] Address [address] [place] [address] Care Team Providers Care Tool Supervisor Name Role Phone Abdoulaye Maier MD Primary Care Provider [phone] Encounter Details Date Type Department Care Team (Late st Contact Info) Description 06/03/2003 Results Only [facility] [address] [place] [address] Key Rocha, [employer] [address] [facility],[address] [phone] Social History Tobacco Use Types Packs/Day Years [...] Procedure Name Priority Date/Time Associated Diagnosis Comments CYTOPATHOLOGY Routine 06/03/2003 0:00 EDT documented in this encounter Results * CYTOPATHOLOGY (06/03/2003 0:00 EDT) Pathology Report: CYTOPATHOLOGY REPORT Reports generated via electronic interface contain original data; however they are lacking the format of the original report. Caution should be taken when reading/interpreti ng unformatted reports. Name: ? ROXANE GODDARD ? Accession #: ? [id number] : ? 1985 (Age: 17) ??F ?Collect Date: ? 06/03/2003 Location: ? [facility] ? Receive Date: ? 06/07/2003 Provider: ?KEY ROCHA NP Copy to: ? Specimen/Source: ?ThinPrep Pap Test, Cervix/Endocervix Last Menstrual Period: ? 05/2003 Hormonal/Contracep tive Status: ? Yes: ortho lo Previous Gynecologic Pathology: ? LSIL: 05/13 HPV: 05/13 GINETTE I Treatment History: ? Cervical biopsy: GINETTE I Other: ? HPVA - HPV testing requested if ASC-US on the current ThinPrep Pap test. ? SPECIMEN ADEQUACY ? Satisfactory for Evaluation - transformation zone component present GENERAL CATEGORIZATION ? Negative for Intraepithelial Lesion or Malignancy INTERPRETATION ? Reactive cellular changes associated with inflammation present (includes repair). ? Document reviewed and electronically signed by: ? Caleb Denis MD ? Report Date: ??06/10/2003 09:46 End of Report [facility] 06/03/2003 06/07/2003 us Key Rocha NP PATHOLOGY ORDERABLES Final R esult [facility] [address] [place] [address] documented in this encounter Visit Diagnoses Not on filedocumented in this encounter Care Teams Tool Supervisor Relationship Specialty Start Date End Date Abdoulaye Maier MD [address] [place] [phone] PCP - General 01/23/09 12/10/15 documented as of this encounter
--- OUTSIDE RECORDS SUMMARY | 2024-03-20 05:19 | XMS_ITS | Referral Summary ---
Author Organization [facility] Address [address] [place] [address] Care Team Providers Care Fellmongering Machine Operator Name Role Phone Unavailable Primary Care Provider Unavailabl e Social History Tobacco Use Types Packs/Day Years Used Date Smoking Tobacco: Never Assessed Interpersonal Safety Answer Date Record ed Physically Hurt Never 09/12/2019 Verbally Threaten Not on file 09/12/2019 Comments Unknown Sex and Gender Information Value Date Recorded Sex Assigned at Not on file Legal Sex Female 18:29 EST Gender Identity Not on file Sexual Orientation Not on file Plan of Treatment Not on file Procedures Procedure Name Priority Date/Time Associated Diagnosis Comments HEPATITIS C AB W REFLEX TO HCV RNA BY PCR Routine 10/24/2022 13:15 EDT from Last 3 Months or Most Recently Relevant to Health Maintenance Results * HEPATITIS C AB W REFLEX TO HCV RNA BY PCR (10/24/2022 13:15 EDT) Hep C Antibody Negative Negative 10/28/2022 10:48 EDT [facility] Blood VENOUS BLOOD / Unknown 10/24/2022 13:15 EDT 10/25/2022 18:02 EDT us Provider Outr Resulting Lab CHEMISTRY & BLOOD GA S ORDERABLES Final Result [facility] [address] [place] [address] from Last 3 Months or Most Recently Relevant to Health Maintenance Insurance MEDICAID [place]
--- OUTSIDE RECORDS SUMMARY | 2024-03-20 05:19 | XMS_ITS | Clinical Summary ---
Author Organization [facility] Address [address] [place] [address] Care Team Providers Care Hand Candle Dipper Name Role Phone Unavailable Primary Care Provider [...] Orientation Not on file Plan of Treatment Health Maintenance Due Date Last Done Comments Hepatitis B Vaccine (1 of 3 - 19+ 3-dose series) 12/13 COVID-19 Vaccine ( season) 2023 Hepatitis C Screen Completed 10/24/2022 Procedures Procedure Name Priority Date/Time Associated Diagnosis Comments HEPATITIS C AB W REFLEX TO HCV RNA BY PCR Routine 10/24/2022 13:15 EDT from Last 3 Months or Most Recently Relevant to Health Maintenance Results * HEPATITIS C AB W REFLEX TO HCV RNA BY PCR (10/24/2022 13:15 EDT) Hep C Antibody Negative Negative 10/28/2022 10:48 EDT [facility] Blood VENOUS BLOOD / Unknown 10/24/2022 13:15 EDT 10/25/2022 18:02 EDT us Provider Outr Resulting Lab CHEMISTRY & BLOOD GA S ORDERABLES Final Result [facility] [address] [place] [address] from Last 3 Months or Most Recently Relevant to Health Maintenance Insurance [place]ICAID [place]
--- OUTSIDE RECORDS SUMMARY | 2024-03-20 05:19 | XMS_ITS | Encounter Summary ---
Author Organization [facility] Address [address] [place] [address] Care Team Providers Care Weight Inspector Name Role Phone Abdoulaye Maier MD Primary Care Provider [phone] Encounter Details Date Type Department Care Team (Latest Contact Info) Description 03/06/2009 10:34 EST - 03/06/2009 10:35 EST Hospital Encounter [facility] - Other [address] [place] [place] [address] [place] [place] [address] Discharge Disposition: Home or Self Care Social History Tobacco Use Types Packs/Day Years Used Date Smoking Tobacco: Never Assessed Comments Unknown Sex and Gender Information Value Date Recorded Sex Assigned at Not on file Legal Sex Female 18:29 EST Gender Identity Not on file Sexual Orientation Not on file documented as of this encounter Discharge Disposition Disposition Code Departure Means Destination Home or Self Care documented in this encounter Plan of Treatment Not on file documented as of this encounter Visit Diagnoses Not on filedocumented in this encounter Care Teams Weight Inspector Relationship Specialty Start Date End Date Abdoulaye Maier MD [address] [place] [phone] PCP - General 01/23/09 12/10/15 documented as of this encounter
--- OUTSIDE RECORDS SUMMARY | 2024-03-20 05:19 | XMS_ITS | Encounter Summary ---
Author Organization [facility] Address [address] [place] [address] Care Team Providers Care Finishing Machine Tender Name Role Phone Abdoulaye Maier MD Primary Care Provider [phone] Encounter Details Date Type Department Care Team (Late st Contact Info) Description 01/29/2005 Results Only [facility] - [facility] [address] [place] [address] Francisco Javier Espinoza [address] [place], [place] [address] Social History Tobacco Use Types Packs/Day Years [...] Procedure Name Priority Date/Time Associated Diagnosis Comments HPV DETECTION, HIGH RISK TYPES Routine 01/29/2005 13:20 EST CYTOPATHOLOGY Routine 01/29/2005 0:00 EST documented in this encounter Results * HUMAN PAPILLOMA VIRUS DNA TEST (01/29/2005 13:20 EST) Specimen Description Cervix, ThinPrep vial [facility] Result Negative for HPV types 16, 18, 31, 33, 35, 39, 45, 51, 52, 56, 58, 59, and 68. [facility] Report Status Final [id number] [facility] 01/29/2005 13:2 0 EST 02/07/2005 8:35 EST Francisco Javier Espinoza EDDASulma MICROBIOLOGY - GENERAL ORDERABLE S Final Result [facility] [address] [place] [address] * CYTOPATHOLOGY (01/29/2005 0:00 EST) Pathology Report: CYTOPATHOLOGY REPORT Reports generated via electronic interface contain original data; however they are lacking the format of the original report. Caution should be taken when reading/interpreti ng unformatted reports. Name: ? ROXANE GODDARD ? Accession #: ? [id number] : ? 1985 (Age: 19) ??F ?Collect Date: ? 01/29/2005 Location: ? [facility] ? Receive Date: ? 01/31/2005 Provider: ?FRANCISCO JAVIER ESPINOZA CNM Copy to: ? Specimen/Source: ?ThinPrep Pap Test, Cervix/Endocervix, processed on [employer] ThinPrep Imaging System, with manual evaluation Last Menstrual Period: ? 12/08/04 Menstrual/Pregnanc y Status: ? Previous Gynecologic Pathology: ? LSIL: 05/13 HPV Other: ? HPVDX - HPV testing requested regardless of diagnosis on current ThinPrep Pap test. ? SPECIMEN ADEQUACY ? Satisfactory for Evaluation - transformation zone component present GENERAL CATEGORIZATION ? Negative for Intraepithelial Lesion or Malignancy INTERPRETATION ? Reactive cellular changes associated with inflammation present (includes repair). ? Document reviewed and electronically signed by: ? GODWIN OREILLY [facility] ? Report Date: ??02/06/2005 16:23 End of Report [facility] 01/29/2005 01/31/2005 Francisco Javier Espinoza CN PATHOLOGY ORDERABLES Final Resul t Performing Organization Address City/State/[place] Co de Phone Number [facility] [address] [place] [address] documented in this encounter Visit Diagnoses Not on filedocumented in this encounter Care Teams Finishing Machine Tender Relationship Specialty Start Date End Date Abdoulaye Maier MD [address] [place] [phone] PCP - General 01/23/09 12/10/15 documented as of this encounter
--- OUTSIDE RECORDS SUMMARY | 2024-03-20 05:19 | XMS_ITS | Encounter Summary ---
Author Organization [facility] Address [address] [place] [address] Care Team Providers Care Children Librarian Name Role Phone Abdoulaye Maier MD Primary Care Provider [phone] Encounter Details Date Type Department Care Team (Late st Contact Info) Description 10/18/2009 Results Only [facility] [phone] Ghazala Pierce MD [address] [place] [address] Social History Tobacco Use Types Packs/Day Years [...] Date/Time Associated Diagnosis Comments SURGICAL PATHOLOGY Routine 10/18/2009 0:00 EDT documented in this encounter Results * SURGICAL PATHOLOGY (10/18/2009 0:00 EDT) Pathology Report: SURGICAL PATHOLOGY REPORT ? Reports generated via electronic interface contain original data; ? however they are lacking the format of the original report. ? Caution should be taken when reading/interpreting unformatted reports. ? Name: ? RUPESH, TIERA ? Accession #: ? [id number] ? : ? 1985 (Age: 23) ??F ? Collect Date: ? 10/18/2009 ? Location: ? [facility] ? Receive Date: ? 10/19/2009 ? Provider: GHAZALA S LILIANE MD ? Copy to: SUSHIL SIDDIQI BOTTLE DEALER ? Final Pathologic Diagnosis: ? A. ?Endocervix, curettage: ? 1. ?Benign endocervical tissue. ? B. ?Cervix, 12 o'clock, biopsies: ? 1. ?Focal high grade squamous intraepithelial lesion (GINETTE II). ??See ? comment. ? 2. ? Squamous and endocervical mucosa. ? Comment: ? The cervical biopsy is composed predominantly of benign endocervical and ?? squamous mucosa. ??One fragment contains a focal area with high grade squamous ?? intraepithelial lesion. ??Deeper sections have been examined. ??Voice Network Administrator ? sections have been reviewed at the intradepartmental consultation conference. ?? Dr. Nyasia Phan has reviewed this case and agrees with the interpretation of ?? high grade squamous intraepithelial lesion. ??In addition, she has reviewed the ?? previous PAP test ([id number]) and confirms the previous interpretation of ASC-H. (Dr. Tran)/jasvirn ? Document reviewed and electronically signed by: ? Vinay Tran MD ? Report ??Date: 10/20/2009 19:34 ? By the signature above, the attending physician certifies that he/she has ? personally conducted a gross and/or microscopic examination of the described ? specimens and rendered or confirmed the above diagnosis. ? Specimen(s) Received: ? A. ?ECC (#1) ? B. ? Bx 12 o'clock cervix (#2) ? Clinical History: ? Colpo /25/10; ASC-H 8/10; LMP: 10/30/; clinical diagnosis code: ??795.02 ? Gross Description: ? Received in formalin labelled Grider, Tiera and endocervix is a 1.5 x 1.0 x 0.2 cm aggregate of clear, focally peters and focally white mucinous ? material. ??The specimen is submitted entirely as (A) following filtration. ? Received in formalin labelled Rupesh, Tiera and cervix are three peters-pink irregular portions of tissue ranging from 0.2 x 0.2 x 0.1 cm to 0.4 x 0.3 x 0.1 cm. ??The specimens are submitted entirely as (B). ??(Blas Crowley)/kmm ? End of Report ? [facility] 10/18/2009 10/19/2009 9:4 2 EDT us Ghazala Pierce MD PATHOLOGY ORDERABLES Final Resu lt [facility] [address] [place] [address] documented in this encounter Visit Diagnoses Not on filedocumented in this encounter Care Teams Children Librarian Relationship Specialty Start Date End Date Abdoulaye Maier MD [address] [place] [phone] PCP - General 01/23/09 12/10/15 documented as of this encounter
--- OUTSIDE RECORDS SUMMARY | 2024-03-20 05:19 | XMS_ITS | Encounter Summary ---
Author Organization [facility] Address [address] [place] [address] Care Team Providers Care Radio Control Crane Operator Name Role Phone Abdoulaye Maier MD Primary Care Provider [phone] Encounter Details Date Type Department Care Team (Late st Contact Info) Description 11/04/2003 Results Only [facility] - Maple conversion [address] [place] [address] Juan J Alexis, AUTOMATIC NAILING MACHINE FEEDER [address] [facility] [address] [place] [address] Social History Tobacco Use Types Packs/Day [...] Comments HPV DETECTION, HIGH RISK TYPES Routine 11/04/2003 13:02 EDT CYTOPATHOLOGY Routine 11/04/2003 0:00 EDT documented in this encounter Results * HUMAN PAPILLOMA VIRUS DNA TEST (11/04/2003 13:02 EDT) Specimen Description Cervix, ThinPrep vial [facility] Result Negative for HPV types 16, 18, 31, 33, 35, 39, 45, 51, 52, 56, 58, 59, and 68. [facility] Report Status Final [id number] [facility] 11/04/2003 13:0 2 EDT 11/11/2003 13:02 EDT us Juan J Alexis NP MICROBIOLOGY - GENERAL ORDER VIVIANA Final Result [facility] [address] [place] [address] * CYTOPATHOLOGY (11/04/2003 0:00 EDT) Pathology Report: CYTOPATHOLOGY REPORT Reports generated via electronic interface contain original data; however they are lacking the format of the original report. Caution should be taken when reading/interpreti ng unformatted reports. Name: ? ROXANE GODDARD ? Accession #: ? [id number] : ? 1985 (Age: 17) ??F ?Collect Date: ? 11/04/2003 Location: ? [facility] ? Receive Date: ? 11/08/2003 Provider: ?JUAN J ALEXIS AUTOMATIC NAILING MACHINE FEEDER Copy to: ? Specimen/Source: ?ThinPrep Pap Test, Cervix/Endocervix Last Menstrual Period: ? 10/17/03 Hormonal/Contracep tive Status: ? Control Pills Previous Gynecologic Pathology: ? Yes: Abn. pap Treatment History: ? Colposcopy Other: ? HPVDX - HPV testing requested regardless of diagnosis on current ThinPrep Pap test. ? SPECIMEN ADEQUACY ? Satisfactory for Evaluation - transformation zone component present GENERAL CATEGORIZATION ? Negative for Intraepithelial Lesion or Malignancy ? Document reviewed and electronically signed by: ? Rigoberto Childress, CARMEN(ASCP) ? Report Date: ??11/11/2003 10:51 End of Report [facility] 11/04/2003 11/08/2003 us Juan J Alexis AUTOMATIC NAILING MACHINE FEEDER PATHOLOGY ORDERABLES Final R esult Performing Organization Address City/State/[facility] Co de Phone Number [facility] [address] [place] [address] documented in this encounter Visit Diagnoses Not on filedocumented in this encounter Care Teams Radio Control Crane Operator Relationship Specialty Start Date End Date Abdoulaye Maier MD [address] [place] [phone] PCP - General 01/23/09 12/10/15 documented as of this encounter
--- OUTSIDE RECORDS SUMMARY | 2024-03-20 05:19 | XMS_ITS | Encounter Summary ---
Author Organization [facility] Address [address] [place] [address] Care Team Providers Care Tanning Solution Maker Name Role Phone Unavailable Primary Care Provider Unavailabl e Encounter Details Date Type Department Care Team (Late st Contact Info) Description 01/12/2009 Orders Only [facility] ([facility]) [address] [place], [place] [phone] Francisco Javier Castro CNM [address] [place], [place] [id number] Social History Tobacco Use Types Packs/Day Years [...] Priority Date/Time Associated Diagnosis Comments CYTOPATHOLOGY Routine 01/12/2009 0:00 EST documented in this encounter Results * CYTOPATHOLOGY (01/12/2009 0:00 EST) Pathology Report: CYTOPATHOLOGY REPORT ? Reports generated via electronic interface contain original data; ? however they are lacking the format of the original report. ? Caution should be taken when reading/interpreti ng unformatted reports. ? Name: ? ROXANE GODDARD ? Accession #: ? [id number] ? : ? 1985 (Age: 23) ??F ?Collect Date: ? 01/12/2009 ? Location: ? [facility] ? Receive Date: ? 01/13/2009 ? Provider: ?ANEA LELONG CNM ? Copy to: ? Specimen/Source: ?Pap Test, Cervix/Endocervix, ThinPrep Imaging System ? with manual evaluation ? Last Menstrual Period: ? 9/20/09 ? Menstrual/Pregnanc y Status: ? Other: ? HPVA - HPV testing requested if ASC-US on the current ThinPrep Pap test. ? SPECIMEN ADEQUACY ? Satisfactory for Evaluation ? - transformation zone component present ? GENERAL CATEGORIZATION ? Epithelial Cell Abnormality ? INTERPRETATION ? Squamous Cell Abnormality - Atypical squamous cells, cannot exclude ? high grade squamous ? intraepithelial lesion (ASC-H). ? EDUCATIONAL NOTES/RECOMMENDATI ONS ? [facility] recommends following the 2006 Consensus Guidelines for the Management of Women with Abnormal Cervical Cancer Screening Tests (JLGTD, ? 2007;11(4):201-222 ). ??Consensus guidelines are available online at ? www.ASCCP.org. ? Document reviewed and electronically signed by: ? BRITTNEY MOUNT MD ? Report Date: ??01/18/2009 17:24 ? End of Report ? [facility] 01/12/2009 01/13/2009 us Francisco Javier Castro CNSulma PATHOLOGY ORDERABLES Final Resul t [facility] [address] [place] [address] documented in this encounter Visit Diagnoses Not on filedocumented in this encounter
--- OUTSIDE RECORDS SUMMARY | 2024-03-20 05:19 | XMS_ITS | Encounter Summary ---
Author Organization [facility] Address [address] [place] [address] Care Team Providers Care Shrimp Peeling Machine Operator Name Role Phone Unavailable Primary Care Provider Unavailabl e Encounter Details Date Type Department Care Team (Late st Contact Info) Description 10/25/2022 Lab Requisition [facility] Pathology & Laboratory Medicine - [address] [address] Outr Resulting Lab, Provider Social History Tobacco Use Types Packs/Day Years [...] Procedure Name Priority Date/Time Associated Diagnosis Comments SYPHILIS SEROLOGY Routine 10/24/2022 13: 15 EDT HEPATITIS C AB W REFLEX TO HCV RNA BY PCR Routine 10/24/2022 13:15 EDT documented in this encounter Results * SYPHILIS SEROLOGY (10/24/2022 13:15 EDT) Syphilis Serology Negative Negative 10/28/2022 10:42 EDT [facility] Blood VENOUS BLOOD / Unknown 10/24/2022 13:15 EDT 10/25/2022 18:02 EDT us Provider Outr Resulting Lab IMMUNOLOGY AND SEROL OGY ORDERABLES Final Result Performing Organization Address City/[facility]/ZIP Co de Phone Number [facility] [address] [place] [address] * HEPATITIS C AB W REFLEX TO HCV RNA BY PCR (10/24/2022 13:15 EDT) Hep C Antibody Negative Negative 10/28/2022 10:48 EDT [facility] Blood VENOUS BLOOD / Unknown 10/24/2022 13:15 EDT 10/25/2022 18:02 EDT us Provider Outr Resulting Lab CHEMISTRY & BLOOD GA S ORDERABLES Final Result Performing Organization Address [facility] Co de Phone Number [facility] [address] [place] [address] documented in this encounter Visit Diagnoses Not on filedocumented in this encounter
--- OUTSIDE RECORDS SUMMARY | 2024-03-20 05:19 | XMS_ITS | Encounter Summary ---
Author Organization [facility] Address [address] [place] [address] Care Team Providers Care Warehouse Distribution Specialist Name Role Phone Abdoulaye Maier MD Primary Care Provider [phone] Encounter Details Date Type Department Care Team (Late st Contact Info) Description 05/01/2010 Results Only [facility] [phone] Manny Pierce MD [address] [place] [address] Social History Tobacco Use Types Packs/Day Years [...] Priority Date/Time Associated Diagnosis Comments CYTOPATHOLOGY Routine 05/01/2010 0:00 EDT documented in this encounter Results * CYTOPATHOLOGY (05/01/2010 0:00 EDT) Pathology Report: CYTOPATHOLOGY REPORT ? Reports generated via electronic interface contain original data; ? however they are lacking the format of the original report. ? Caution should be taken when reading/interpreti ng unformatted reports. ? Name: ? ROXANE GODDARD ? Accession #: ? [id number] ? : ? 1985 (Age: 24) ??F ?Collect Date: ? 05/01/2010 ? Location: ? [facility] ? Receive Date: ? 05/02/2010 ? Provider: MANNY S LILIANE MD ? Copy to: ? Final Report ? SPECIMEN ADEQUACY ? Satisfactory for Evaluation ? - transformation zone component present ? GENERAL CATEGORIZATION ? Negative for Intraepithelial Lesion or Malignancy ? INTERPRETATION ? Reactive cellular changes associated with inflammation present (includes ?? repair). ? Previous Gynecologic Pathology: GINETTE II: 10/20/10 & 09/08/10 ? ASC-US: -H 08/17/10 & 12/03/09 ? Treatment History: LEEP: GINETTE II 10/20/10 ? Colposcopy: 09/08/10 ? Cervical biopsy: GINETTE II ? Specimen/Source: ??Pap Test, Cervix/Endocervix, ThinPrep Imaging System with ? manual evaluation ? Document reviewed and electronically signed by: ? WANG OSCAR MD ? Report ??Date: 05/09/2010 14:04 ? HPV with Pap Test ? Date Ordered: ? 05/07/2010 ? Status: ?? Signed Out ?Date Complete: ? 05/14/2010 ? By: ??System Interface ? Date Reported: ? 05/14/2010 ? Interpretation ? RESULT: Positive for one or more of HPV types 16,18,31,33,35,39, 45, ? 51,52,56,58,59, or 68. These high/intermediate risk HPV ? types are associated with dysplasia and some cervical ? cancers. ? Comments ? Document reviewed and electronically signed by: ? System Interface ? Report date: 05/14/2010 ? By the signature above, the attending physician certifies that he/she has ? personally conducted a gross and/or microscopic examination of the described ? specimens and rendered or confirmed the above diagnosis. ? End of Report ? [facility] 05/01/2010 05/02/2010 us Manny Pierce MD PATHOLOGY ORDERABLES Final Resu lt [facility] [address] [place] [address] documented in this encounter Visit Diagnoses Not on filedocumented in this encounter Care Teams Warehouse Distribution Specialist Relationship Specialty Start Date End Date Abdoulaye Maier MD [address] [place] [phone] PCP - General 01/23/09 12/10/15 documented as of this encounter
--- OUTSIDE RECORDS SUMMARY | 2024-03-20 05:19 | XMS_ITS | Encounter Summary ---
Author Organization [facility] Address [address] [place] [address] Care Team Providers Care Laser Printing Operator Name Role Phone Adboulaye Maier MD Primary Care Provider [phone] Encounter Details Date Type Department Care Team (Late st Contact Info) Description 09/26/2009 Results Only [facility] - [facility] ([facility]) [address] [place] [address] [address] [place] [address] Social History Tobacco Use Types Packs/Day Years [...] Priority Date/Time Associated Diagnosis Comments CYTOPATHOLOGY Routine 09/26/2009 0:00 EDT documented in this encounter Results * CYTOPATHOLOGY (09/26/2009 0:00 EDT) Pathology Report: CYTOPATHOLOGY REPORT ? Reports generated via electronic interface contain original data; ? however they are lacking the format of the original report. ? Caution should be taken when reading/interpreti ng unformatted reports. ? Name: ? ROXANE GRIDER ? Accession #: ? [id number] ? : ? 1985 (Age: 23) ??F ?Collect Date: ? 09/26/2009 ? Location: ? [facility] ? Receive Date: ? 09/27/2009 ? Provider: ?WALESKA EARLINE CNM ? Copy to: ? Specimen/Source: ?Pap Test, Cervix/Endocervix, ThinPrep Imaging System ? with manual evaluation ? Last Menstrual Period: ? 09/20/09 ? Previous Gynecologic Pathology: ? ASC-US: Cannot exclude HSIL 12/03/09 ? Treatment History: ? Colposcopy: 01/25/10 ? Other: ? HPVA - HPV testing requested if ASC-US on the current ThinPrep Pap test. ? SPECIMEN ADEQUACY ? Satisfactory for Evaluation ? - transformation zone component present ? GENERAL CATEGORIZATION ? Epithelial Cell Abnormality ? INTERPRETATION ? Squamous Cell Abnormality - Atypical squamous cells, cannot exclude ? high grade squamous ? intraepithelial lesion (ASC-H). ? EDUCATIONAL NOTES/RECOMMENDATI ONS ? [facility] recommends following the 2006 Consensus Guidelines for the Management of Women with Abnormal Cervical Cancer Screening Tests (JLGTD, ? 2007;11(4):201-222 ). ??Consensus guidelines are available online at ? www.ASCCP.org. ? Document reviewed and electronically signed by: ? Catrina J. Colvin, MD PhD ? Report Date: ??09/29/2009 15:08 ? End of Report ? [facility] 09/26/2009 09/27/2009 us Waleska Calderón CNM PATHOLOGY ORDERABLES Final Res ult [facility] [address] [place] [address] documented in this encounter Visit Diagnoses Not on filedocumented in this encounter Care Teams Laser Printing Operator Relationship Specialty Start Date End Date Abdoulaye Maier MD [address] [place] [phone] PCP - General 01/23/09 12/10/15 documented as of this encounter
--- OUTSIDE RECORDS SUMMARY | 2024-03-20 05:19 | XMS_ITS | Encounter Summary ---
Author Organization [facility] Address [address] [place] [address] Care Team Providers Care Horizontal Boring Mill Set Up Operator Name Role Phone Unavailable Primary Care Provider Unavailabl e Encounter Details Date Type Department Care Team (Late st Contact Info) Description 10/24/2022 Lab Requisition [facility] Pathology & Laboratory Medicine - [address] [id number] Outr Resulting Lab, Provider Social History Tobacco [...] Procedure Name Priority Date/Time Associated Diagnosis Comments CHLAMYDIA/N. GONORRHOEAE AMPLIFIED NUCLEIC ACID, THINPREP Routine 10/24/2022 12:55 EDT documented in this encounter Results * CHLAMYDIA/N. GONORRHOEAE AMPLIFIED RNA, THINPREP (10/24/2022 12:55 EDT) Neisseria gonorrhoeae Result Negative Negative 10/25/2022 14:23 EDT [facility] Chlamydia trachomatis Result Negative Negative 10/25/2022 14:23 EDT [facility] Pap Test CERVIX UTERI STRUCTURE / Unknown 10/24/2022 12:55 EDT 10/25/2022 9:39 EDT us Provider Outr Resulting Lab MICROBIOLOGY - GENER AL ORDERABLES Final Result [facility] [address] [place] [address] documented in this encounter Visit Diagnoses Not on filedocumented in this encounter
--- OUTSIDE RECORDS SUMMARY | 2024-03-20 05:19 | XMS_ITS | Encounter Summary ---
Author Organization [facility] Address [address] [place] [address] Care Team Providers Care Business Editor Name Role Phone Unavailable Primary Care Provider Unavailabl e Encounter Details Date Type Department Care Team (Latest Contact Info) Description 10/25/2022 Lab Requisition [facility] Pathology & Laboratory Medicine - [facility] [address] [place] [address] Michell Wooten, HONEY [address] [facility] [address] [place] [address] Encounter for screening for human papillomavirus (HPV); Encounter for screening for malignant neoplasm of cervix; Encounter for general adult medical examination without abnormal findings Social History Tobacco Use Types Packs/Day Years [...] Name Priority Date/Time Associated Diagnosis Comments PAP TEST Today 10/24/2022 12:55 EDT Encounter for screening for human papillomavirus (HPV) Encounter for screening for malignant neoplasm of cervix Encounter for general adult medical examination without abnormal findings documented in this encounter Results * PAP TEST (10/24/2022 12:55 EDT) Specimens A. Cervix and/or Endocervix , ThinPrep Imaging System with Manual Evaluation 11/07/2022 11:58 [facility] Specimen Adequacy Unsatisfactory for evaluation-Insuf ficient number of squamous epithelial cells. Specimen processed and examined but preparation compromised by lubricant or other vaginal contaminant. 11/07/2022 11:58 EDT [facility] General Categorization Unsatisfactory 11/07/2022 11:58 [facility] Educational Comments Unsatisfactory - Specimen processed and examined, but unsatisfactory for evaluation of epithelial abnormality. Recommend repeat age-based screening after 2-4 months per ASCCP Guidelines which may be found at www.asccp.org. HPV testing will not be performed due to the potential for false negative results. 11/07/2022 11:58 [facility] Attestation . 11/07/2022 11:58 [facility] at 1158 Clinical History See below 11/08/19 11:58 T [facility] Performing Lab [facility] 11/07/2022 11:58 [facility] Scanned Images 11/07/2022 11:58 [facility] Pap Test CERVIX UTERI STRUCTURE / Unknown 10/24/2022 12:55 EDT 10/25/2022 13:44 EDT Michell Wooten APRICOT PACKER PATHOLOGY ORDERABLES Final Re sult [facility] [address] [place] [address] documented in this encounter Visit Diagnoses Diagnosis Encounter for screening for human papillomavirus (HPV) Special screening examination for human papillomavirus (HPV) Encounter for screening for malignant neoplasm of cervix Screening for malignant neoplasm of the cervix Encounter for general adult medical examination without abnormal findings Unspecified general medical examination documented in this encounter
--- OUTSIDE RECORDS SUMMARY | 2024-03-20 05:19 | XMS_ITS | Encounter Summary ---
Author Organization [facility] Address [address] [place] [address] Care Team Providers Care Proposition Player Name Role Phone Abdoulaye Maier MD Primary Care Provider Encounter Details Date Type Department Care Team (Late st Contact Info) Description 01/10/2004 Results Only [facility] [address] [place] [address] Juan J Alexis, NUT SHELLER MACHINE OPERATOR [address] [facility] [address] [place] [address] Social History Tobacco Use Types [...] Date/Time Associated Diagnosis Comments SURGICAL PATHOLOGY Routine 01/10/2004 0:00 EST documented in this encounter Results * SURGICAL PATHOLOGY (01/10/2004 0:00 EST) Pathology Report: SURGICAL PATHOLOGY REPORT Reports generated via electronic interface contain original data; however they are lacking the format of the original report. Caution should be taken when reading/interpreti ng unformatted reports. Name: ? ROXANE GODDARD ? Accession #: ? [id number] ? : ? 1985 (Age: 18) ??F ? Collect Date: ? 01/10/2004 ? Location: ? [facility] ? Receive Date: ? 01/11/2004 ? Provider: JUAN J ALEXIS NP Copy to: NISH SANTORO MD ? Final Pathologic Diagnosis: ? Tissue passed from uterus: 1. ?Chorionic villi. 2. ?Partially infarcted decidua. 3. ?Fibrin coagulum. Document reviewed and electronically signed by: Amanda Page MD Report ??Date: 01/12/2004 19:38 By the signature above, the attending physician certifies that he/she has personally conducted a gross and/or microscopic examination of the described specimens and rendered or confirmed the above diagnosis. Specimen(s) Received: ? Uterine tissue passed Clinical History: ? S/P therapeutic Ab 12/13/03 Gross Description: ? Received in formalin labelled Goddard and uterine tissue is a peters-pink to red hemorrhagic irregular soft tissue fragment measuring 3.7 x 2.0 x 1.0 cm. The cut surfaces are peters-pink to red and focally hemorrhagic. ??No parts are grossly identified. ??The specimen is serially sectioned and entirely submitted as (A1) to (A3). ??(Toño Zuleta)/[facility] End of Report [facility] 01/10/2004 01/11/2004 15: 10 EST us Juan J Alexis NP PATHOLOGY ORDERABLES Final R esult [facility] [address] [place] [address] documented in this encounter Visit Diagnoses Not on filedocumented in this encounter Care Teams Proposition Player Relationship Specialty Start Date End Date Abdoulaye Maier MD [address] [place] [address] PCP - General 01/23/09 12/10/15 documented as of this encounter
--- OUTSIDE RECORDS SUMMARY | 2024-03-20 05:19 | XMS_ITS | Encounter Summary ---
Author Organization [facility] Address [address] [place] [address] Care Team Providers Care Director Water And Waste Services Name Role Phone Abdoulaye Maier MD Primary Care Provider [phone] Encounter Details Date Type Department Care Team (Late st Contact Info) Description 08/26/2001 Results Only [facility] - [facility] conversion [address] [place] [address] Francisco J[address] [place], [place] [address] Social History Tobacco Use Types Packs/Day Years [...] Priority Date/Time Associated Diagnosis Comments CYTOPATHOLOGY Routine 08/26/2001 0:00 EDT documented in this encounter Results * CYTOPATHOLOGY (08/26/2001 0:00 EDT) Pathology Report: CYTOPATHOLOGY REPORT Reports generated via electronic interface contain original data; however they are lacking the format of the original report. Caution should be taken when reading/interpreti ng unformatted reports. Name: ? ROXANE GODDARD ? Accession #: ? [id number] : ? 1985 (Age: 15) ??F ?Collect Date: ? 08/26/2001 Location: ? [facility] ? Receive Date: ? 08/28/2001 Provider: ?ROMIFatou FROSTPARMJITALBAN CNM Copy to: ? Specimen/Source: ?ThinPrep Pap Test, Cervix/Endocervix Last Menstrual Period: ? 06/11 Menstrual/Pregnanc y Status: ? SPECIMEN ADEQUACY ? Satisfactory for Evaluation - transformation zone component present GENERAL CATEGORIZATION ? Epithelial Cell Abnormality INTERPRETATION ? Squamous Cell Abnormality - Low grade squamous intraepithelial lesion (LSIL). EDUCATIONAL NOTES/RECOMMENDATI ONS ? [facility] recommends following the 2001 Consensus Guidelines for the Management of Women with Cervical Cytological Abnormalities (KESHAV,2002;287:212 0-9). Management algorithms have been distributed by [facility] and are available online at www.ASCCP.org. ? Document reviewed and electronically signed by: ? LEONARDO MARIE MD ? Report Date: ??09/03/2001 11:43 End of Report [facility] 08/26/2001 08/28/2001 us Francisco Javier Frostharman CNM PATHOLOGY ORDERABLES Final Resul t [facility] [address] [place] [address] documented in this encounter Visit Diagnoses Not on filedocumented in this encounter Care Teams Director Water And Waste Services Relationship Specialty Start Date End Date Abdoulaye Maier MD [address] [place] [address] PCP - General 01/23/09 12/10/15 documented as of this encounter
--- OUTSIDE RECORDS SUMMARY | 2024-03-20 05:19 | XMS_ITS | Encounter Summary ---
Author Organization [facility] Address [address] [place] [address] Care Team Providers Care Justice Professor Name Role Phone Abdoulaye Maier MD Primary Care Provider [phone] Encounter Details Date Type Department Care Team (Latest Contact Info) Description 12/06/2015 7:20 EDT - 12/06/2015 23:59 EDT Hospital Encounter [facility] [address] [place] [address] Unknown, Provider, Discharge Disposition: Auto Discharge Social History Tobacco Use Types Packs/Day Years Used Date Smoking Tobacco: Never Assessed Comments Unknown Sex and Gender Information Value Date Recorded Sex Assigned at Not on file Legal Sex Female 18:29 EST Gender Identity Not on file Sexual Orientation Not on file documented as of this encounter Discharge Disposition Disposition Code Departure Means Destination Auto Discharge Home documented in this encounter Plan of Treatment Not on file documented as of this encounter Visit Diagnoses Not on filedocumented in this encounter Care Teams Justice Professor Relationship Specialty Start Date End Date Abdoulaye Maier MD [address] [place] [address] PCP - General 01/23/09 12/10/15 documented as of this encounter
--- OUTSIDE RECORDS SUMMARY | 2024-03-20 05:19 | XMS_ITS | Encounter Summary ---
Author Organization [facility] Address [address] [place] [address] Care Team Providers Care Detasseling Crew Supervisor Name Role Phone Abdoulaye Maier MD Primary Care Provider [phone] Encounter Details Date Type Department Care Team (Late st Contact Info) Description 05/11/2002 Results Only [facility] - [facility] conversion [address] [place] [address] Alma Rosa Shepherd, [facility] [address] [place] [address] [place] [phone] Social History Tobacco Use Types Packs/Day Years [...] Comments HPV DETECTION, HIGH RISK TYPES Routine 05/11/2002 13:30 EST CYTOPATHOLOGY Routine 05/11/2002 0:00 EST documented in this encounter Results * HUMAN PAPILLOMA VIRUS DNA TEST (05/11/2002 13:30 EST) Specimen Description Cervix, ThinPrep vial [facility] Result Positive for one or more of HPV types 16,18,31,33,35 ,39,45,51,52,5 6,58,59, or 68. These high/intermedi ate risk HPV types are associated with dysplasia and some cervical cancers. [facility] Report Status Final [id number] [facility] 05/11/2002 13:3 0 EST 05/20/2002 10:50 EDT Alma Rosa Shepherd MANAGER GALLERY MICROBIOLOGY - GENERAL ORDER VIVIANA Final Result [facility] [address] [place] [address] * CYTOPATHOLOGY (05/11/2002 0:00 EST) Pathology Report: CYTOPATHOLOGY REPORT Reports generated via electronic interface contain original data; however they are lacking the format of the original report. Caution should be taken when reading/interpreti ng unformatted reports. Name: ? ROXANE GODDARD ? Accession #: ? [id number] : ? 1985 (Age: 16) ??F ?Collect Date: ? 05/11/2002 Location: ? [facility] ? Receive Date: ? 05/13/2002 Provider: ?ALMA ROSA SHEPHERD MANAGER GALLERY Copy to: ? Specimen/Source: ?ThinPrep Pap Test, Cervix/Endocervix Last Menstrual Period: ? 5/?/02 Menstrual/Pregnanc y Status: ? Post Previous Gynecologic Pathology: ? LSIL: 08/26/01 Other: ? HPVDX - HPV testing requested regardless of diagnosis on current ThinPrep Pap test. ? SPECIMEN ADEQUACY ? Satisfactory for Evaluation - transformation zone component present GENERAL CATEGORIZATION ? Epithelial Cell Abnormality INTERPRETATION ? Squamous Cell Abnormality - Low grade squamous intraepithelial lesion (LSIL). EDUCATIONAL NOTES/RECOMMENDATI ONS ? [facility] recommends following the 2001 Consensus Guidelines for the Management of Women with Cervical Cytological Abnormalities (KESHAV,2002;287:212 0-9). Management algorithms have been distributed by [facility] and are available online at www.ASCCP.org. ? Document reviewed and electronically signed by: ? GODWIN OREILLY MD [facility] ? Report Date: ??05/19/2002 17:20 End of Report [facility] 05/11/2002 05/13/2002 us Alma Rosa Shepherd MANAGER GALLERY PATHOLOGY ORDERABLES Final R esult [facility] [address] [place] [address] documented in this encounter Visit Diagnoses Not on filedocumented in this encounter Care Teams Detasseling Crew Supervisor Relationship Specialty Start Date End Date Abdoulaye Maier MD [address] [place] [phone] PCP - General 01/23/09 12/10/15 documented as of this encounter
--- OUTSIDE RECORDS SUMMARY | 2024-03-20 05:19 | XMS_ITS | Encounter Summary ---
Author Organization [facility] Address [address] [place] [address] Care Team Providers Care Director Of Event Marketing Name Role Phone Abdoulaye Maier MD Primary Care Provider Encounter Details Date Type Department Care Team (Late st Contact Info) Description 06/08/2002 Results Only [facility] - Maple conversion [address] [place] [address] Negrito Valles MD [address] [place], [place] [address] Social History Tobacco Use Types Packs/Day Years [...] Date/Time Associated Diagnosis Comments SURGICAL PATHOLOGY Routine 06/08/2002 0:00 EDT documented in this encounter Results * SURGICAL PATHOLOGY (06/08/2002 0:00 EDT) Pathology Report: SURGICAL PATHOLOGY REPORT Reports generated via electronic interface contain original data; however they are lacking the format of the original report. Caution should be taken when reading/interpreti ng unformatted reports. Name: ? ROXANE GODDARD ? Accession #: ? [id number] ? : ? 1985 (Age: 16) ??F ? Collect Date: ? 06/08/2002 ? Location: ? [facility] ? Receive Date: ? 06/09/2002 ? Provider: NEGRITO VALLES MD Copy to: RAMÍREZ SANTORO MD ? Final Pathologic Diagnosis: ? Cervix, 1 o' clock, biopsy: - Focal low grade squamous intraepithelial lesion (GINETTE I). Document reviewed and electronically signed by: RAMÍREZ VELÁSQUEZ MD Report ??Date: 06/10/2002 19:54 By the signature above, the attending physician certifies that he/she has personally conducted a gross and/or microscopic examination of the described specimens and rendered or confirmed the above diagnosis. Specimen(s) Received: ? Cx bx @ 1:00 Clinical History: ? 05/13 PAP LSIL, +HPV Gross Description: ? Received in formalin labelled Goddard and cx bx at 1:00 is a peters-white, 0.3 x 0.2 x 0.2 cm, soft tissue fragment. ??The specimen is entirely submitted in one cassette. ??(Toño Zuleta)/[facility] End of Report [facility] 06/08/2002 06/09/2002 8:3 8 EDT us Negrito Valles MD PATHOLOGY ORDERABLES Final Resul t [facility] [address] [place] [address] documented in this encounter Visit Diagnoses Not on filedocumented in this encounter Care Teams Director Of Event Marketing Relationship Specialty Start Date End Date Abdoulaye Maier MD [address] [place] [address] PCP - General 01/23/09 12/10/15 documented as of this encounter
--- OUTSIDE RECORDS SUMMARY | 2024-03-20 05:19 | XMS_ITS | Encounter Summary ---
Author Organization [facility] Address [address] [place] [address] Care Team Providers Care Professional Healthcare Representative Name Role Phone Unavailable Primary Care Provider Unavailabl e Encounter Details Date Type Department Care Team (Late st Contact Info) Description 10/25/2022 Lab Requisition [facility] Pathology & Laboratory Medicine - [facility] [address] [place], [place] [address] Outr Resulting Lab, Provider Social History Tobacco [...] Procedure Name Priority Date/Time Associated Diagnosis Comments HIV 1/2 ANTIGEN AND ANTIBODY, 4TH GENERATION Routine 10/24/2022 13:15 EDT documented in this encounter Results * HIV 1/2 ANTIGEN AND ANTIBODY, 4TH GENERATION (10/24/2022 13:15 EDT) HIV 1 and 2 Antibody/p24 Antigen, 4th Generation Negative Negative 10/27/2022 13:20 EDT [facility] Comment:If acute HIV-1 infec tion is suspected in a high risk patient, submit plasma specimen for HIV-1 RNA quantitation test. Blood VENOUS BLOOD / Unknown 10/24/2022 13:15 EDT 10/25/2022 18:02 EDT Narrative [facility] - 10/27/2022 13:20 EDT Fourth Generation assay performed on the [employer] XPT. us Provider Outr Resulting Lab IMMUNOLOGY AND SEROL OGY ORDERABLES Final Result [facility] [address] [place] [address] documented in this encounter Visit Diagnoses Not on filedocumented in this encounter
--- OUTSIDE RECORDS SUMMARY | 2024-03-20 05:19 | XMS_ITS | Encounter Summary ---
Author Organization [facility] Address [address] [place] [address] Care Team Providers Care Microelectronics Assembler Name Role Phone Abdoulaye Maier MD Primary Care Provider [phone] Encounter Details Date Type Department Care Team (Late st Contact Info) Description 11/29/2009 Results Only [facility] [phone] Manny Pierce MD [address] [place] [address] Social History Tobacco Use Types Packs/Day Years [...] Date/Time Associated Diagnosis Comments SURGICAL PATHOLOGY Routine 11/29/2009 0:00 EDT documented in this encounter Results * SURGICAL PATHOLOGY (11/29/2009 0:00 EDT) Pathology Report: SURGICAL PATHOLOGY REPORT ? Reports generated via electronic interface contain original data; ? however they are lacking the format of the original report. ? Caution should be taken when reading/interpreting unformatted reports. ? Name: ? RUPESH, ROXANE ? Accession #: ? [id number] ? : ? 1985 (Age: 23) ??F ? Collect Date: ? 11/29/2009 ? Location: ? [facility] ? Receive Date: ? 11/30/2009 ? Provider: MANNY S LILIANE MD ? Copy to: SUSHIL SIDDIQI BRAND ACTIVATION MANAGER ? Final Pathologic Diagnosis: ? Cervix, anterior, LEEP excision: ? 1. ?Transformation zone mucosa with a single and detached fragment of ?? high-grade squamous intraepithelial lesion (GINETTE II). ? - Detached fragment is adjacent to black-inked endocervical margin. ? 2. ?? Acute and chronic cervicitis. ? Comment: ? Histologic sections demonstrate predominantly acute and chronic cervicitis at the transformation zone. ??There is squamous metaplasia identified. ??Located ?? in one block (A3), there is a single, detached fragment of high- grade dysplasia immediately adjacent to the black inked margin. ??Given the detached nature, ? definitive margin status is difficult to determine, and thus, close clinical ? follow up is advised. ??Immunohistochemical staining was performed on this case. Positive and negative controls stained appropriately. ? Block ?Antibody (Clone) ? Result ? A3 ?P16 (E6H4TM, [facility]) ? Full thickness ? staining ? MIB-1(Ki-67) (Rabbit Monoclonal (SP6), [facility]) ? Nuclear staining in upper epithelium ? 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 ??This case was ? reviewed by Dr. Chelsea Justice in consultation, and she concurs with the ? diagnosis of high-grade dysplasia. ??(Dr. Garzon)/kmm ? NOTE: ??One or more of the reagents used in immunohistochemical testing in this case may not have been cleared or approved by the U.S. Food and Drug ? Administration (FDA). ??The FDA has determined that such clearance or approval is not necessary. ??These tests are used for clinical purposes. ??They should not be regarded as investigational or for research. ??These reagents' ??performance ? characteristics have been determined by [facility]. ??This ? laboratory is certified under the Clinical Laboratory Improvement Amendments of 1988 (CLIA-88) as qualified to perform high complexity clinical laboratory ? testing. ? Document reviewed and electronically signed by: ? MARSHALL J ELENA MD ? Report ??Date: 12/07/2009 21:50 ? By the signature above, the attending physician certifies that he/she has ? personally conducted a gross and/or microscopic examination of the described ? specimens and rendered or confirmed the above diagnosis. ? Specimen(s) Received: ? LEEP ??anterior cervix ? Clinical History: ? Cervical bx 10/18/2009 HSIL, GINETTE II; [facility] 09/26/2009; [facility] 01/13/2009 ? Gross Description: ? Received in formalin labelled Roxane Grider and anterior cervix is an unoriented 1.7 x 1.0 cm portion of cervix, excised to a depth of 0.7 cm. ??One ?? aspect is partially surfaced by peters, smooth to wrinkled mucosa. ??The os is not ?? present. ??The presumed endocervical margin is inked black and remaining specimen inked blue. ??The specimen is serially sectioned and entirely submitted as (A1) ?? to (A3). ??/elian ? End of Report ? [facility] 11/29/2009 11/30/2009 17: 37 EDT us Manny Pierce MD PATHOLOGY ORDERABLES Final Resu lt [facility] [address] [place] [address] documented in this encounter Visit Diagnoses Not on filedocumented in this encounter Care Teams Microelectronics Assembler Relationship Specialty Start Date End Date Abdoulaye Maier MD [address] [place] [phone] PCP - General 01/23/09 12/10/15 documented as of this encounter
[2024-03-20 05:23] VITALS: BP 203/106; PULSE 92; RESP 182; TEMP 36.9; O2SAT 97
--- NOTE | 2024-03-20 05:31 | ED.GENADUL_ITS ---
Discharge Plan Discharge Details Chief Complaint: Abd Prob Primary Care Provider: Unknown,Unknown ED Provider: Armin Walker Home Meds and New Rx's Prescriptions: No Action clonidine HCl 0.1 mg tablet 0.3 mg PO TID PRN Patient Comments: TAKE ONE TABLET BY MOUTH TWICE A DAY buprenorphine-naloxone [Suboxone] 4-1 mg film 1 film sublingual DAILY Patient Comments: DISSOLVE 1 FILM UNDER THE TONGUE ONCE DAILY FOR 7 DAYS albuterol sulfate [Ventolin HFA] 90 mcg/actuation HFA aerosol inhaler 2 puff INHALATION PRN PRN Patient Comments: INHALE 2 PUFFS BY MOUTH EVERY 4-6 HOURS NEEDED buprenorphine-naloxone 2-0.5 mg film 1 film sublingual DAILY Patient Comments: PLACE ONE-HALF FILM UNDER THE TONGUE EVERY DAY IN THE MORNING FOR 28 DAYS HPI General Date/Time Provider Initiated Documentation: 03/20/24 05:16 . HPI Narrative: 39-year-old female with a past medical history of GERD, depression, asthma, anxiety, presents today for evaluation of sharp lower abdominal pain. Patient states that at 3 AM she woke up with sudden severe sharp stabbing abdominal pain in the lower abdominal quadrants. She admits to an associated sensation of pressure in that area. She did take ibuprofen prior to arrival. This did not change the pain. She states she regularly gets somewhat severe periods but states that this was nothing like what she has experienced in the past. Pain is present throughout the lower abdomen and radiates to both flanks. She denies any previous surgeries, nausea vomiting or diarrhea. She denies any fever or chills. No blood in her stool recently. No other complaints at this time. She is currently on her menstrual cycle. Related Data Home Medications ?Medication ?Instructions ?Recorded ?Confirmed buprenorphine 4 mg-naloxone 1 mg 1 film sublingual DAILY 05/04/22 03/20/24 sublingual film (Suboxone) clonidine HCl 0.1 mg tablet 0.3 mg PO TID PRN 05/04/22 03/20/24 albuterol sulfate 90 mcg/actuation 2 puff inhalation PRN PRN 09/24/22 03/20/24 aerosol inhaler (Ventolin HFA) buprenorphine 2 mg-naloxone 0.5 mg 1 film sublingual DAILY 03/20/24 03/20/24 sublingual film Allergies Allergy/AdvReac Type Severity Reaction Status Date / Time Sulfa (Sulfonamide Allergy Severe Hives Unverified 03/20/24 05:25 Antibiotics) General Stated Complaint: Abd Prob YUN: 3 Exam Narrative Exam Narrative: 1.Const: Well-nourished, Well-developed, appearing stated age 2.Eyes: PERRL, no conjunctival injection, and symmetrical lids. 3.ENT: Atraumatic external nose and ears. Moist MM. Neck: Symmetric, trachea midline, No thyromegaly. 4.CVS: +S1/S2, Peripheral pulses 2+ and equal in all extremities. Brisk capillary refill in all extremities. 5.RESP: Unlabored respiratory effort. Clear to auscultation bilaterally. No wheezes rales or rhonchi 6.GI: Soft, nondistended. Mild lower abdominal tenderness bilaterally and in the mid region as well as the suprapubic region. Mild flank CVA tenderness worse on the left than the right. Positive heel strike test bilaterally, negative obturator and psoas sign. 7.MSK: Normocephalic/Atraumatic, Extremities w/o deformity or ttp No cyanosis or clubbing, Normal movement of all extremities 8.Skin: Warm, Dry. No rashes or lesions. 9.Neuro: soft crab shedder II-XII grossly intact. Sensation grossly intact, no focal neurologic deficits. 10.Psych: (AAO) x3. Appropriate mood and affect Course Vital Signs Vital signs: Vital Signs Temperature 36.9 C 03/20/24 05:17 Pulse 92 H 03/20/24 05:17 Respiratory Rate 182 H 03/20/24 05:17 Blood Pressure 203/106 H 03/20/24 05:17 Pulse Oximetry 97 03/20/24 05:17 Temperature 36.9 C 03/20/24 05:23 Temperature Source Oral 03/20/24 05:23 Pulse 92 H 03/20/24 05:23 Respiratory Rate 182 H 03/20/24 05:23 Blood Pressure 203/106 H 03/20/24 05:23 Blood Pressure Position Sitting 03/20/24 05:23 Pulse Oximetry 97 03/20/24 05:23 Oxygen Delivery Method Room Air 03/20/24 05:23 Oxygen Flow Rate 0 03/20/24 05:23 Pain Level 8 03/20/24 05:24 Medical Decision Making 39-year-old female with a past medical history of GERD, depression, asthma, anxiety, presents today for evaluation of sharp lower abdominal pain. Patient states that at 3 AM she woke up with sudden severe sharp stabbing abdominal pain in the lower abdominal quadrants. She admits to an associated sensation of pressure in that area. She did take ibuprofen prior to arrival. This did not change the pain. She states she regularly gets somewhat severe periods but states that this was nothing like what she has experienced in the past. Pain is present throughout the lower abdomen and radiates to both flanks. She denies any previous surgeries, nausea vomiting or diarrhea. She denies any fever or chills. No blood in her stool recently. No other complaints at this time. She is currently on her menstrual cycle. Abdominal exam demonstrates atypical findings with generalized lower abdominal tenderness, positive heel strike test, but negative obturator and psoas sign. Differential is broad but includes fibroid, severe menstrual cramps, less likely but potential ovarian torsion, diverticulitis, or UTI or kidney stone. Will evaluate for these etiologies, treat her pain starting with NSAID therapy, monitor closely and reassess. 7:03 AM On reassessment patient's pain is notably improved. Is gone from a 10 to a 3. She no longer feels the undulation of the pain and it feels like a mild stable ache. No signs of an acute surgical abdomen. Symptoms do not appear consistent with active torsion at this time. Laboratory workup shows no white count or bandemia. Electrolytes normal. Urinalysis shows blood but she is on her menstrual cycle, no evidence of infection. Personal review of CT imaging seems to demonstrate what appears to be a potentially large ovarian cyst, however we are waiting for the formal read. Patient will be signed out to my colleague for follow-up on imaging. Quality:SDOH Health Related Social Needs: No Data to Display PFSH All Active Problems COVID-19 (Acute) Opiate withdrawal (Acute) Acute dyspnea (Acute) Use of nonprescription opiate drugs (Acute) Stimulant intoxication (Acute) GERD (gastroesophageal reflux disease) (Chronic) Depression (Chronic) Asthma (Chronic) Anxiety (Chronic) Surgical History S/P tubal ligation S/P arthroscopic knee surgery Social History Smoking/Tobacco Use Status: Current every day Tobacco Type: cigarettes Smoking risk assessment performed?: Yes Alcohol Intake: current Alcohol Intake frequency: 3 or more drinks per day Alcohol type: beer and hard liquor Drug use: Rarely Substance use type: former substance user Housing: house Do you feel safe at home: Yes Do you feel safe in your relationship?: Yes Female Reproductive History Menstrual control method: permanent sterilization
[2024-03-20] MEDS: Ketorolac 15 MG/ML VIAL IVP (05:35)
[2024-03-20] MEDS: ACETAMINOPHEN 1,000 MG/100 ML BAG 400 MG IVPB (05:36)
[2024-03-20 05:39] LABS: Abs Immature Grans 0.03 10^3/uL (0.0-0.06); Absolute Basophil Count 0.04 10^3/uL (0.0-0.2); Absolute Eosinophil Count 0.27 10^3/uL (0.0-0.7); Absolute Lymphocyte Count 2.44 10^3/uL (1.2-3.4); Absolute Neutrophil Count 5.83 10^3/uL (1.2-6.7); Basophils % 0.4 %; Eosinophils % 2.9 %; HCT 38.4 % (36.0-46.0); HGB 11.8 g/dL (11.2-15.7); Immature Grans % 0.3 %; Lymphocytes % 26.5 %; MCH 26.2 pg (27.0-33.0); MCHC 30.7 % (32.0-36.0); MCV 85 fL (80-95); MPV 8.9 fL (8.0-11.0); Monocytes % 6.5 %; Neutrophils % 63.4 %; Platelet Count 317 10^3/uL (130-400); RBC 4.51 10^6/uL (3.93-5.22); RDW-SD 43.5 fL; WBC 9.21 10^3/uL (4.4-10.8)
[2024-03-20 05:54] LABS: ALT 50 U/L (14-59); AST 20 U/L (15-37); Albumin 3.6 g/dL (3.4-5.0); Alkaline Phosphatase 107 U/L (46-116); BUN 19 mg/dL (7-18); Bilirubin, Total 0.25 mg/dL (0.2-1.0); CREATININE 0.9 mg/dL (0.55-1.02); Calcium 8.6 mg/dL (8.5-10.1); Chloride 104 mmol/L (98-107); Estimated GFR 82.88 (mL/min/1.73m2); Glucose 158 mg/dL (74-106); Potassium 3.7 mmol/L (3.5-5.1); Sodium 138 mmol/L (136-145); Total Protein 7.6 g/dL (6.4-8.2)
[2024-03-20 06:06] LABS: Bilirubin Small (Negative); Blood Large (Negative); Clarity Sl Cloudy (Clear); Glucose Negative (Negative); Ketones Trace mg/dL (Negative); Leukocyte Esterase Negative (Negative); Nitrite Negative (Negative); Specific Gravity >= 1.030 (1.005-1.025); Urobilinogen 0.2 mg/dL (Up to 0.2)
[2024-03-20 06:11] LABS: Bacteria Few HPF (Negative); Crystals Negative HPF (Negative); Epithelial Cells Few HPF (Negative); Mucus Negative (Negative); RBC >50 HPF (0-2); WBC 0-2 HPF (0-5)
[2024-03-20 06:12] LABS: C & S Indicated? No; Casts Negative LPF (Negative)
[2024-03-20] MEDS: Normal Saline - Diluent 50 ML VIAL IJ (06:27)
[2024-03-20] MEDS: Omnipaque 350 MG/ML 100 ML BTL 75 ML IJ (06:27)
--- NOTE | 2024-03-20 06:28 | DI.CT_ITS ---
Exam(s) CT ABDOMEN PELVIS W EXAM: CT ABDOMEN PELVIS W CLINICAL HISTORY: lower abd pain, eval for ovarian pathology. TECHNIQUE: Imaging Protocol: Axial computed tomography images with coronal and sagittal reformatted images were created and reviewed CONTRAST MATERIAL: Intravenous: Omnipaque 350 Contrast volume:75 ml Oral: no COMPARISON: CT CT ABDOMEN PELVIS W from 04/20/2023 FINDINGS: ABDOMEN and PELVIS: Lung Bases: No acute findings. Liver: Mild fatty steatosis. No suspicious mass. Gallbladder and biliary tract: No radiodense calculus. No wall thickening or pericholecystic fluid. No biliary dilation. Pancreas: Normal density. No abnormal calcifications or inflammatory process. No evidence of mass. Spleen: Normal. Kidneys: Normal size, contour and axis. No radiodense stones. No obstructive uropathy. No suspicious masses seen. Adrenal glands: No masses seen. Vasculature: Abdominal aorta non-dilated. Soft tissues: Unremarkable. Bladder: No gross wall thickening. No calculi.No focal mass. Bowel: No obstruction. No bowel wall thickening. Appendix normal. Peritoneal cavity: No ascites. No focal collection. No mesenteric inflammatory response. No free air . Bones: Unremarkable for age. Reproductive organs: The uterus is enlarged and retroflexed. The there is an area of low density lik dixon a fibroid. The ovaries appear normal. Lymph nodes: No pathologically enlarged lymph nodes. IMPRESSION:: No acute abnormality in the abdomen or pelvis. RADIATION DOSE DELIVERED: Total DLP DATA REPOSITORY: All CT scans at this facility are submitted to the National Radiology Data Registry (NRDR) Dose Index Registry (DIR) with the [employer] (ACR). RADIATION OPTIMIZATION: All CT scans at this facility use at least one of these dose optimization te chniques: automated exposure control; mA and/or kV adjustment per patient size (includes targeted exa ms where dose is matched to clinical indication); or iterative reconstruction.
[2024-03-20 06:30] VITALS: BP 152/83; PULSE 73; RESP 16; O2SAT 97
--- NOTE | 2024-03-20 08:10 | DI.VRAD_ITS ---
PROCEDURE INFORMATION: Exam: CT Abdomen And Pelvis With Contrast Exam date and time: 03/20/2024 6:16 AM Age: 38 years old Clinical indication: Abdominal pain; Localized; Lower abd pain, eval for ovarian pathology TECHNIQUE: Imaging protocol: Computed tomography of the abdomen and pelvis with contrast. Radiation optimization: All CT scans at this facility use at least one of these dose optimization techniques: automated exposure control; mA and/or kV adjustment per patient size (includes targeted exams where dose is matched to clinical indication); or iterative reconstruction. Contrast material: [id number]; Contrast volume: 75 ml; Contrast route: INTRAVENOUS (IV); COMPARISON: CT ABDOMEN PELVIS W 04/20/2023 3:05 AM FINDINGS: Liver: Diffuse hepatic steatosis. Gallbladder and biliary ducts: No calcified stones or ductal dilation. Pancreas: No ductal dilation. Spleen: Unremarkable. Adrenal glands: Unremarkable. Kidneys and ureters: No hydronephrosis. Stomach and bowel: No obstruction. No mucosal thickening. Appendix: Normal appendix. Intraperitoneal space: Trace pelvic free fluid. Vasculature: Unremarkable. Lymph nodes: No enlarged lymph nodes. Urinary bladder: Unremarkable as visualized. Reproductive: Previously described left corpus luteum is no longer visualized. No ovarian abnormality identified. Redemonstrated suspected uterine fibroid. Bones/joints: Unremarkable. No acute fracture. Soft tissues: Unremarkable. IMPRESSION: No acute findings. Dictated and Authenticated by: Gloria De Los Santos MD. Orderin Aaron Funez MD
--- NOTE | 2024-03-20 08:16 | W.EDPROG ---
Date of service: 03/20/24 Time of Service: 08:00 Medical Decision Making In brief, this is a 38-year-old female patient who presented to the emergency department with sudden onset bilateral lower abdominal/pelvic pain. At the time that I took over her care, her disposition was pending radiology read of the CT of her abdomen and pelvis. She had reassuring laboratory studies without anemia, metabolic or electrolyte derangement, or evidence of kidney or liver dysfunction. Her urinalysis was positive for blood, likely in the context of her menstruating, no sign of infection. I did independently interpret the patient's CT, and did note a large uterine fibroid. Radiology notes same, and does not note any ovarian cysts, trace pelvic free fluid likely in the setting of menstruation. These findings were shared with the patient, and I did discuss the case with CERTIFIED PHARMACY TECHNICIAN to ensure that she has adequate outpatient follow-up if she elects to proceed with management of her uterine fibroid. At this time, the patient has had a full medical evaluation and is safe for discharge to home. They are hemodynamically stable, ambulatory, and tolerating PO. They are understanding of the follow-up plan and return precautions. They left our facility without incident. Yadira Abrams MD Medical Records Medical records reviewed: Yes I reviewed the patient's medical records. Lab Data Lab results reviewed: Yes I reviewed the patient's lab results. Quality:SDOH Health Related Social Needs: No Data to Display Discharge Plan Disposition Patient Disposition: Home Condition: Stable Discharge Details Clinical Impression: Fibroid, uterine, Pelvic pain Primary Care Provider: Unknown,Unknown ED Provider: Yadira Abrams Home Meds and New Rx's Prescriptions: No Action clonidine HCl 0.1 mg tablet 0.3 mg PO TID PRN Patient Comments: TAKE ONE TABLET BY MOUTH TWICE A DAY buprenorphine-naloxone [Suboxone] 4-1 mg film 1 film sublingual DAILY Patient Comments: DISSOLVE 1 FILM UNDER THE TONGUE ONCE DAILY FOR 7 DAYS albuterol sulfate [Ventolin HFA] 90 mcg/actuation HFA aerosol inhaler 2 puff INHALATION PRN PRN Patient Comments: INHALE 2 PUFFS BY MOUTH EVERY 4-6 HOURS NEEDED buprenorphine-naloxone 2-0.5 mg film 1 film sublingual DAILY Patient Comments: PLACE ONE-HALF FILM UNDER THE TONGUE EVERY DAY IN THE MORNING FOR 28 DAYS Discharge Instructions Instructions: Uterine Fibroids (DC) Additional Instructions: You were seen in the emergency department today for evaluation of lower abdominal pain. At our department you do full physical examination performed and had laboratory studies that were reassuring. You had a CT scan that showed that your uterus has what looks to be a large fibroid in it. You also had a small amount of fluid that can be seen when you are on your menstrual cycle, as you are. We have provided a referral to CERTIFIED PHARMACY TECHNICIAN to discuss next steps if you wish to manage this uterus and fibroid, and please follow-up with your primary care provider in the next few days to discuss this visit and any symptoms that change, worsen, or persist. Thank you for allowing us to be part of your care. Referrals: Dulce Cyr MD [ [facility] STAFF PHYSICIAN] - 1 week
== END 2024-03-20 08:05 | disposition home or self-care (01) ==
PROVIDERS: Student in an Organized Health Care Education/Training Program; Emergency Provider Emergency Medicine
DX: R10.30 Lower abdominal pain, unspecified (principal); D26.9 Other benign neoplasm of uterus, unspecified; F17.210 Nicotine dependence, cigarettes, uncomplicated
CPT/HCPCS: 00123; 36415; 80053; 81025; 96365; 96375; 99285; 74177; 81003; 81015; 85025; J0131; J1885; J3490

== ENCOUNTER 2024-12-26 10:27 | Emergency (ER) | payer MEDICAID, SELFPAY ==
[2024-12-26 10:33] VITALS: PULSE 85; RESP 16; O2SAT 97
[2024-12-26 10:39] VITALS: BP 153/94; PULSE 87; RESP 16; TEMP 36.7; O2SAT 97
--- NOTE | 2024-12-26 10:44 | ED.GENADUL_ITS ---
Discharge Plan Disposition Patient Disposition: Home Condition: Stable Discharge Details Clinical Impression: Viral syndrome Primary Care Provider: Unknown,Unknown ED Provider: Armin Barrera Home Meds and New Rx's Prescriptions: Continued chlorhexidine gluconate 0.12 % mouthwash 15 ml mucous membrane BID Qty: 300 0RF clonidine HCl 0.1 mg tablet 0.3 mg PO TID PRN Patient Comments: TAKE ONE TABLET BY MOUTH TWICE A DAY buprenorphine-naloxone [Suboxone] 4-1 mg film 1 film sublingual DAILY Patient Comments: DISSOLVE 1 FILM UNDER THE TONGUE ONCE DAILY FOR 7 DAYS albuterol sulfate [Ventolin HFA] 90 mcg/actuation HFA aerosol inhaler 2 puff INHALATION PRN PRN Patient Comments: INHALE 2 PUFFS BY MOUTH EVERY 4-6 HOURS NEEDED Discharge Instructions Instructions: Cough, runny nose, and the common cold Additional Instructions: You were seen in the emergency department for your right neck pain around your anterior cervical chain lymph nodes, you are likely reacting to a virus, your rapid strep is negative, your blood work shows no signs of infection and your CT shows no abscess or other abnormality, we did examine your eye to check for any evidence of any shingles infection, please be on the look out for any developing skin lesions to this area and be reevaluated immediately for any of these, return for any reduced range of motion of jaw or respiratory distress Stand Alone Forms: Portal Information Discharge Data Discharge Date/Time-TO BE ENTERED AT DEPARTURE: 12/26/24 13:06 HPI General Date/Time Provider Initiated Documentation: 12/26/24 10:37 . HPI Narrative: 39 year-old female presents to ED today by POV/ambulating with a chief complaint of right neck pain that radiates to the ear with onset for the past 5 days. Quality described as generalized R neck pain, no radiation to trismus, severe s ore throat, endorses mild cough and headaches. Severity is described as moderate. Palliating factors include Tylenol with good relief. Provoking factors include nothing specific. Patient not anticoagulated. Related Data Home Medications Medication Instructions Recorded Confirmed buprenorphine 4 mg-naloxone 1 mg 1 film sublingual ALTHEA LY 05/04/22 12/26/24 sublingual film (Suboxone) clonidine HCl 0.1 mg tablet 0.3 mg PO TID PRN 05/04/22 12/26/24 albuterol sulfate 90 mcg/actuation 2 puff inhalation P RN PRN 09/24/22 12/26/24 aerosol inhaler (Ventolin HFA) chlorhexidine gluconate 0.12 % 15 ml mucous membrane B ID #300 mL 08/14/24 12/26/24 mouthwash Previous Rx's Medication Instructions Recorded chlorhexidine gluconate 0.12 % 15 ml mucous membrane B ID #300 mL 08/14/24 mouthwash Allergies Allergy/AdvReac Type Severity Reaction Status Date / Time Sulfa (Sulfonamide Allergy Severe Hives Unverified 12/26/24 11:46 Antibiotics) General Stated Complaint: FacialProb YUN: 3 Review of Systems All systems reviewed & are unremarkable except as noted in HPI and below Exam Narrative Exam Narrative: GENERAL APPEARANCE: Well-nourished, non-toxic, awake and alert, atraumatic, no acute distress. SKIN: Warm, pink, dry, intact, without rashes/lesions/ulcerations. HEAD: Normocephalic, atraumatic, normal hair distribution for gender/age. EYES: Normal conjunctiva, no exudates on lids/lashes, visual luke intact, no nystagmus, no lesions to cornea of right eye ENT: Nares patent, no circumoral cyanosis, no facial swelling, no facial erythema, has tender lymphadenopathy without swelling in the anterior cervical chain on the right, no trismus, no tonsillar swelling or exudate, uvula midline NECK: Supple, trachea midline, painless cervical ROM. LUNGS/CHEST: Lungs CTA bilaterally, non-labored respirations, normal A/P diameter, symmetrical expansion, no chest wall deformity HEART (CV/PV): Regular rate and rhythm without murmur, no peripheral edema, no JVD. ABDOMEN: Soft, non-distended, no guarding. MSK: Normal ROM, no swelling/deformity to bilateral UEs or LEs, moving all extremities without weakness, no cyanosis, spine midline without tenderness, normal curvature. NEURO: Mental Status AAOx4 - alert to person, place, time, events No facial droop, no forehead involvement. Motor: No focal weakness - strength 5/5 in bilateral UEs and LEs, proximal and distal, symmetric. Sensory: sensation intact to light touch globally. Gait normal: patient ambulated without ataxia into ED room. PSYCH: euthymic, cooperative, pleasant, appropriate speech Course Vital Signs Vital signs: Vital Signs Pulse 85 12/26/24 10:33 Respiratory Rate 16 12/26/24 10:33 Pulse Oximetry 97 12/26/24 10:33 Temperature 36.7 C 12/26/24 10:39 Temperature Source Oral 12/26/24 10:39 Pulse 87 12/26/24 10:39 Respiratory Rate 16 12/26/24 10:39 Blood Pressure 153/94 H 12/26/24 10:39 Blood Pressure Position Sitting 12/26/24 10:39 Pulse Oximetry 97 12/26/24 10:39 Oxygen Delivery Method Room Air 12/26/24 10:39 Oxygen Flow Rate 0 12/26/24 10:33 Medical Decision Making This dictation utilizes [id number] dictation software and may contain unedited grammatical errors. 39 year-old female presents to ED today by POV/ambulating with a chief complaint of right neck pain that radiates to the ear with onset for the past 5 days. Quality described as generalized R neck pain, no radiation to trismus, severe sore throat, endorses mild cough and headaches, endorses mild blurred vision in the right eye peripheral vision. Severity is described as moderate. Palliating factors include Tylenol with good relief. Provoking factors include nothing specific. Patients' medical history: Noncontributory. Family and social history: Noncontributory. Pertinent exam findings / vital signs include right tonsillar and cervical chain tenderness without severe lymphadenopathy, bilateral TMs clear, uvula midline without tonsillar exudate, no trismus, no dendritic lesions or abnormality to cornea, visual luke intact, no vesicular lesions, no visible facial swelling or erythema. Differential / pathologies of concern include viral syndrome, WALL MAN, strep, COVID/flu, shingles. Diagnostic studies of: - CBC, CMP, rapid strep, respiratory PCR swab, CT neck with contrast. - CBC is unremarkable - CMP unremarkable - Rapid strep negative - CT neck without peritonsillar abscess or other abnormality - PCR swab negative Interventions of: - Recommend continuing Tylenol and NSAID. ED Course/Assessment/Plan: 39-year-old female presents with right neck pain in the anterior cervical chain mostly as well as some blurred right vision in her lateral periphery and headaches and generalized cough, endorses vocal changes but does not have hot potato voice, no trismus, CT neck is unremarkable, there is no evidence of any Per Singh syndrome or shingles outbreak and no visible facial swelling, CT neck does not show any sinusitis peritonsillar abscess or other abnormality, I do suspect she has a viral syndrome and will likely improve and recommend conservative management at home but stressed strict return criteria for any trismus or developing lesions. Findings not consistent with Per Singh, peritonsillar abscess, deep space infection. Disposition of viral syndrome. Patient verbalized understanding of the plan and return to ED criteria and engaged in shared decision making. Medical Records Medical records reviewed: Yes I reviewed the patient's medical records. Imaging Data Radiologic Study: Attestation: I personally reviewed and interpreted this imaging study as follows: Imaging: CT Scan Radiologist's impression: Exam: CT Neck With Contrast Exam date and time: 12/26/2024 11:13 AM Age: 39 years old Clinical indication: Other: Vocal changes, R tonsillar pain TECHNIQUE: Imaging protocol: Computed tomography of the neck with contrast. Contrast material: OMNIPAQUE 350; Contrast volume: 100 ml; Contrast route: INTRAVENOUS (IV); COMPARISON: CT CHEST PE CTA 05/29/2021 11:28 AM FINDINGS: Brain: Visualized aspect of the brain is unremarkable Paranasal sinuses: There is no significant sinus opacification or fluid level Salivary glands: The parotid glands, and the submandibular glands are unremarkable Teeth: There is artifact in association with the patient's dental work. Pharynx: There is mild enlargement of the pharyngeal tonsils but they are relatively symmetric in size. There are tonsillar concretions. There is no evidence of a discrete or drainable tonsillar or peritonsillar collection or abscess. Larynx: The epiglottis, larynx are unremarkable as visualized. Thyroid: Thyroid gland is unremarkable Trachea: There is no significant airway narrowing Lungs: Emphysematous and bullous changes are seen at the lung apices. There is no significant airspace consolidation. Lymph nodes: There are small shotty bilateral cervical nodes which are not significantly enlarged by size criteria. Bones/joints: There is no acute bony abnormality Soft tissues: No significant subcutaneous abnormality is identified IMPRESSION: No acute findings. Mild tonsillar enlargement which is symmetric. No evidence of a discrete or drainable tonsillar or peritonsillar collection or abscess. Dictated and Authenticated by: Alysia Borden MD. Lab Data Lab results reviewed: Yes I reviewed the patient's lab results. Labs: 12/26/24 10:58 Tonsil - Not Specified Group A Streptococcus Culture - Pending Laboratory Tests Range/Units 12/26/24 12/26/24 10:59 12:37 WBC (4.4-10.8) 10^3/uL 6.67 RBC (3.93-5.22) 10^6/uL 4.13 Hgb (11.2-15.7) g/dL 11.2 Hct (36.0-46.0) % 35.6 L MCV (80-95) fL 86 MCH (27.0-33.0) pg 27.1 MCHC (32.0-36.0) % 31.5 L RDW (11.7-14.6) % 14.9 H Plt Count (130-400) 10^3/uL 301 MPV (8.0-11.0) fL 9.0 Immature Gran % % 0.3 Neutrophils % % 61.5 Lymphocytes % % 27.0 Monocytes % % 7.8 Eosinophils % % 2.8 Basophils % % 0.6 Nucleated RBC % (0.0-0.3) % 0.0 Absolute Neutrophils (1.2-6.7) 10^3/uL 4.10 Absolute Lymphocytes (1.2-3.4) 10^3/uL 1.80 Absolute Monocytes (0.1-0.8) 10^3/uL 0.52 Absolute Eosinophils (0.0-0.7) 10^3/uL 0.19 Absolute Basophils (0.0-0.2) 10^3/uL 0.04 Sodium (136-145) mmol/L 141 Potassium (3.5-5.1) mmol/L 3.8 Chloride (98-107) mmol/L 109 H Carbon Dioxide (20.0-31.0) mmol/L 26.2 Anion Gap (3-11) mmol/L 5.8 BUN (9-23) mg/dL 14 Creatinine (0.55-1.02) mg/dL 0.7 Est GFR (CKD-EPI 2020) (mL/min/1.73m2) 98.68 Glucose (74-106) mg/dL 93 Calcium (8.3-10.6) mg/dL 9.0 Total Bilirubin (0.2-1.2) mg/dL 0.40 AST (<34) U/L 13 ALT (10-49) U/L 15 Alkaline Phosphatase (46-116) U/L 97 Total Protein (5.7-8.2) g/dL 7.7 Albumin (3.4-5.0) g/dL 4.6 COVID-19 Source Nasopharynx SARS-CoV-2 (PCR) (Negative) Negative Influenza Type A (PCR) (Negative) Negative Influenza Type B (PCR) (Negative) Negative RSV (PCR) (Negative) Negative PFSH All Active Problems (Updated 12/26/24 @ 12:55 by MAIKEL Roth) Viral syndrome (Acute) Unsatisfactory cervical Papanicolaou smear (Acute) COVID-19 (Acute) Opiate withdrawal (Acute) Acute dyspnea (Acute) Use of nonprescription opiate drugs (Acute) Stimulant intoxication (Acute) GERD (gastroesophageal reflux disease) (Chronic) Depression (Chronic) Asthma (Chronic) Anxiety (Chronic) Surgical History S/P tubal ligation S/P arthroscopic knee surgery Social History Smoking/Tobacco Use Status: Current every day Tobacco Type: cigarettes Quit status: considering quitting Smoking risk assessment performed?: Yes Alcohol Intake: current Alcohol Intake frequency: 3 or more drinks per day Alcohol type: beer and hard liquor Drug use: Rarely Substance use type: former substance user Housing: house Do you feel safe at home: Yes Do you feel safe in your relationship?: Yes Female Reproductive History Menstrual Duration of menses: 3-5 days control method: permanent sterilization History History 5 Para 3 Hx # Term Pregnancies Multiple births Hx # Pregnancies Ectopic pregnancies AB induced 1 Hx Number of Living Children AB spontaneous 1 Past Pregnancies Del. Date GA/Weeks # Preg Succ Route Wgt Sex Labor Lgth Anesth esia Location [facility] 03/28/02 Yes vaginal 3543.69 g Male [facility] 09/08/05 Yes vaginal 3543.69 g Female [facility] 08/13/09 Yes vaginal 2976.7 g Female [facility] Delivery Date: 03/28/02 Last Updated by: Muna Perry RN Emilio Delivery Date: 09/08/05 Last Updated by: ADILSON Barahona Delivery Date: 08/13/09 Last Updated by: ADILSON Barahona
--- NOTE | 2024-12-26 10:45 | DI.CT_ITS ---
Exam(s) CT NECK W EXAM: CT NECK W INDICATION: vocal changes, R tonsillar pain. COMPARISON: No exams were available for comparison TECHNIQUE: Intravenous contrast: Omnipaque 350; 100 ml FINDINGS: VISUALIZED PARANASAL SINUSES: Unremarkable. NASOPHARYNX: Unremarkable ORODENTAL: There is a E periapical lucency in of left upper molar. No abscess seen at this level. Mandible appears unremarkable. OROPHARYNX: There is symmetrical enlargement of the tonsils with the calcified tonsilliths evident but no evidence of tonsillar abscess. Also no evidence of retropharyngeal abscess. Uvula is midline. HYPOPHARYNX: Unremarkable. Valleculae and epiglottis and aryepiglottic folds appear normal. VOCAL CORDS: Unremarkable. No masses evident. Subglottic airway appears unremarkable. THYROID GLAND: Unremarkable. Normal size and no obvious nodules. SALIVARY GLANDS: Unremarkable. No significant findings in the parotid and submandibular glands. LYMPH NODES: There is no adenopathy evident in the neck and supraclavicular regions. OTHER: VISUALIZED LUNG APICES: Emphysematous changes in the visualized upper lobes but no infiltrates. IMPRESSION: 1. There is mild symmetrical large mint of the tonsils as well as calcified tonsilliths. However, there is no evidence of tonsillar abscess nor retropharyngeal abscess. 2. No significant lymphadenopathy in the neck. 3. Other findings as above. RADIATION DOSE DELIVERED: 439.04mGy.cm Total DLP DATA REPOSITORY: All CT scans at this facility are submitted to the National Radiology Data Registry (NRDR) Dose Index Registry (DIR) with the [employer] ([employer]). RADIATION OPTIMIZATION: All CT scans at this facility use at least one of these dose optimization techniques: automated exposure control; mA and/or kV adjustment per patient size (includes targeted exams where dose is matched to clinical indication); or iterative reconstruction.
[2024-12-26 11:08] LABS: Abs Immature Grans 0.02 10^3/uL (0.0-0.06); HCT 35.6 % (36.0-46.0); HGB 11.2 g/dL (11.2-15.7); Immature Grans % 0.3 %; MCH 27.1 pg (27.0-33.0); MCHC 31.5 % (32.0-36.0); MCV 86 fL (80-95); MPV 9.0 fL (8.0-11.0); Platelet Count 301 10^3/uL (130-400); RBC 4.13 10^6/uL (3.93-5.22); RDW 14.9 % (11.7-14.6); RDW-SD 47.0 fL; WBC 6.67 10^3/uL (4.4-10.8)
[2024-12-26] MEDS: Normal Saline - Diluent 50 ML VIAL IJ (11:17)
[2024-12-26] MEDS: Omnipaque 350 MG/ML 100 ML BTL IJ (11:17)
[2024-12-26] MEDS: Normal Saline Flush 10 ML SYR IVP (11:18)
[2024-12-26 11:46] LABS: ALT 15 U/L (10-49); AST 13 U/L (<34); Albumin 4.6 g/dL (3.4-5.0); Alkaline Phosphatase 97 U/L (46-116); Anion Gap 5.8 mmol/L (3-11); BUN 14 mg/dL (9-23); Bilirubin, Total 0.40 mg/dL (0.2-1.2); CO2 26.2 mmol/L (20.0-31.0); Calcium 9.0 mg/dL (8.3-10.6); Chloride 109 mmol/L (98-107); Glucose 93 mg/dL (74-106); Potassium 3.8 mmol/L (3.5-5.1); Sodium 141 mmol/L (136-145); Total Protein 7.7 g/dL (5.7-8.2)
[2024-12-26 11:55] VITALS: BP 161/99; PULSE 72; RESP 15; O2SAT 98
--- NOTE | 2024-12-26 12:16 | DI.VRAD_ITS ---
PROCEDURE INFORMATION: Exam: CT Neck With Contrast Exam date and time: 12/26/2024 11:13 AM Age: 39 years old Clinical indication: Other: Vocal changes, R tonsillar pain TECHNIQUE: Imaging protocol: Computed tomography of the neck with contrast. Contrast material: OMNIPAQUE 350; Contrast volume: 100 ml; Contrast route: INTRAVENOUS (IV); COMPARISON: CT CHEST PE CTA 05/29/2021 11:28 AM FINDINGS: Brain: Visualized aspect of the brain is unremarkable Paranasal sinuses: There is no significant sinus opacification or fluid level Salivary glands: The parotid glands, and the submandibular glands are unremarkable Teeth: There is artifact in association with the patient's dental work. Pharynx: There is mild enlargement of the pharyngeal tonsils but they are relatively symmetric in size. There are tonsillar concretions. There is no evidence of a discrete or drainable tonsillar or peritonsillar collection or abscess. Larynx: The epiglottis, larynx are unremarkable as visualized. Thyroid: Thyroid gland is unremarkable Trachea: There is no significant airway narrowing Lungs: Emphysematous and bullous changes are seen at the lung apices. There is no significant airspace consolidation. Lymph nodes: There are small shotty bilateral cervical nodes which are not significantly enlarged by size criteria. Bones/joints: There is no acute bony abnormality Soft tissues: No significant subcutaneous abnormality is identified IMPRESSION: No acute findings. Mild tonsillar enlargement which is symmetric. No evidence of a discrete or drainable tonsillar or peritonsillar collection or abscess. Dictated and Authenticated by: Alysia Borden MD. Orderin Holly Funez MD
[2024-12-26 13:03] VITALS: BP 166/96; PULSE 72; RESP 18; O2SAT 98
[2024-12-26 13:17] LABS: COVID-19 PCR Negative (Negative); RSV PCR Negative (Negative)
== END 2024-12-26 13:06 | disposition home or self-care (01) ==
PROVIDERS: Emergency Provider Physician Assistant
DX: M54.2 Cervicalgia (principal); B34.9 Viral infection, unspecified
CPT/HCPCS: 99283; 99285; 81025; 36415; 70491; 80053; 87637; 85025; 87081; J3490